=== PATIENT | female | born 1945 | race Caucasian/White ===

== ENCOUNTER → 2016-06-06 | Outpatient (CLI) | payer MEDICARE, OTHER | END | disposition home or self-care (01) | LOC: GMAM 15:40 | PROVIDERS: ATTEND Family Medicine | DX: K85.00 Idiopathic acute pancreatitis without necrosis or infection (principal) ==

== ENCOUNTER → 2016-09-30 | Outpatient (CLI) | payer MEDICARE, OTHER | END | disposition home or self-care (01) | LOC: GMAM 10:28 | PROVIDERS: ATTEND Family Medicine | DX: E53.8 Deficiency of other specified B group vitamins (principal); E55.9 Vitamin D deficiency, unspecified ==

== ENCOUNTER → 2016-12-31 | Outpatient (CLI) | payer MEDICARE, OTHER | END | disposition home or self-care (01) | LOC: GMA 15:36 | PROVIDERS: ATTEND Nurse Practitioner Family | DX: N30.00 Acute cystitis without hematuria (principal) ==

== ENCOUNTER → 2017-04-05 | Outpatient (CLI) | payer MEDICARE, OTHER | END | disposition home or self-care (01) | LOC: GMAM 14:21 | PROVIDERS: ATTEND Family Medicine | DX: D51.3 Other dietary vitamin B12 deficiency anemia (principal); E55.9 Vitamin D deficiency, unspecified ==

== ENCOUNTER → 2017-10-09 | Outpatient (CLI) | payer MEDICARE, OTHER | LOC: YCHH 15:15 | PROVIDERS: ATTEND Family Medicine | DX: N39.0 Urinary tract infection, site not specified (principal) ==

== ENCOUNTER → 2017-10-11 | Outpatient (CLI) | payer MEDICARE, OTHER | LOC: GMAJS 10:32 | PROVIDERS: ATTEND Physician Assistant | DX: R10.84 Generalized abdominal pain (principal) ==

== ENCOUNTER → 2018-04-04 | Outpatient (CLI) | payer MEDICARE, OTHER | LOC: YCHH 11:44 | PROVIDERS: ATTEND Family Medicine | DX: N39.0 Urinary tract infection, site not specified (principal) ==

== ENCOUNTER → 2018-07-06 | Outpatient (CLI) | payer MEDICARE, OTHER ==
--- NOTE | 2018-07-06 11:28 | RAD ---
EXAM DESCRIPTION: Foot,Left 3 Views CLINICAL HISTORY: 73 years Female, S92.315D COMPARISON: None. FINDINGS: Three views of the left foot were obtained. Bony detail is obscured by artifact from superimposed splint material. There are slightly displaced fractures involving the first through fourth metatarsals proximally. No definite intra-articular extension. Slight widening of the interspace between the second and third metatarsals and with additional widening of the interval between the lateral and middle cuneiforms is best seen on the oblique view. Slightly displaced fracture involving the third metatarsal neck with probable additional nondisplaced fracture fourth metatarsal neck. The phalanges are intact. The calcaneocuboid and talonavicular joints are anatomically aligned. No calcaneal fracture is seen on the lateral view. IMPRESSION: Multiple metatarsal fractures as detailed above with widening of the interval between the lateral and middle cuneiforms and bases of the second and third metatarsals. Lisfranc injury is not excluded, MRI is recommended for further evaluation. Electronically signed by: Toribio Curiel MD 07/06/2018 11:25 AM [facility]
== END ==
LOC: RAD 09:24
PROVIDERS: ATTEND Orthopaedic Surgery
DX: S92.315D Nondisplaced fracture of first metatarsal bone, left foot, subsequent encounter for fracture with routine healing (principal); S92.325D Nondisplaced fracture of second metatarsal bone, left foot, subsequent encounter for fracture with routine healing; S92.335D Nondisplaced fracture of third metatarsal bone, left foot, subsequent encounter for fracture with routine healing; S92.345D Nondisplaced fracture of fourth metatarsal bone, left foot, subsequent encounter for fracture with routine healing

== ENCOUNTER → 2018-07-27 | Outpatient (CLI) | payer MEDICARE, OTHER ==
--- NOTE | 2018-07-29 17:32 | RAD ---
EXAM DESCRIPTION: Foot,Left 3 Views: CR/DR/XR CLINICAL HISTORY: 73 years Female S92.315D, S92.325D, S92.335D, S92.345D COMPARISON: 3 views of the left foot with immobilization material 2018 TECHNIQUE: 3 VIEWS left foot AP. Lateral. Oblique. FINDINGS: Again noted are healing fractures of the proximal great metatarsal. The proximal second metatarsal, proximal third metatarsal and distal third metatarsal proximal to the head, and proximal fourth metatarsal. Angulation of some of the fractures. Callus formation is noted. Overall bone density is decreased. No new fractures. IMPRESSION: Fractures in the first through fourth metatarsals as noted. Proximal and distal fracture third metatarsal not involving the metatarsophalangeal joint. Varying degrees of angulation of the fractures and early callus formation. Electronically signed by: Alek Damico MD 07/29/2018 5:29 PM CDT
== END ==
LOC: RAD 09:39
PROVIDERS: ATTEND Orthopaedic Surgery
DX: S92.315D Nondisplaced fracture of first metatarsal bone, left foot, subsequent encounter for fracture with routine healing (principal); S92.325D Nondisplaced fracture of second metatarsal bone, left foot, subsequent encounter for fracture with routine healing; S92.335D Nondisplaced fracture of third metatarsal bone, left foot, subsequent encounter for fracture with routine healing; S92.345D Nondisplaced fracture of fourth metatarsal bone, left foot, subsequent encounter for fracture with routine healing

== ENCOUNTER 2018-08-27 14:58 | Inpatient (IN) | payer MEDICARE, OTHER ==
--- NOTE | 2018-08-27 15:38 | RAD ---
EXAM DESCRIPTION: Chest,1 View CLINICAL HISTORY: fever, ams COMPARISON: March 22, 2016 FINDINGS: The cardiomediastinal silhouette is unremarkable. There is no airspace consolidation or pleural effusion. The bronchovascular markings are within normal limits, and the lungs are not hyperinflated. There is no pneumothorax or acute fracture. Linear and curvilinear structures projecting over the right lung base are probably artifactual. IMPRESSION: No acute findings. Electronically signed by: Toribio Curiel MD 08/27/2018 3:36 PM CDT
[2018-08-27] MEDS ORDERED: SOD CHL 3% *HYPERTONIC* 500ML 160 ML IVS ONE (16:08)
[2018-08-27] MEDS ORDERED: MAGNESIUM SULFATE PREMIX 4GM 4 GM in PREMIX BAG 1 BAG IVPB ONE (16:09)
[2018-08-27] MEDS ORDERED: PIPERACILLIN/TAZOBACTAM 3.375 GM in SODIUM CHLORIDE 0.9% 100ML 100 ML IVPB ONE (16:09)
[2018-08-27] MEDS ORDERED: predniSONE 20 MG TAB PO ONE (16:11)
--- NOTE | 2018-08-27 16:41 | CT ---
Study: CT abdomen and pelvis. Indication: fever, ams, abd pain Technique: CT of the abdomen and pelvis obtained without intravenous contrast. This exam was performed according to our departmental dose-optimization program, which includes automated exposure control, adjustment of the mA and/or kV according to patient size and/or use of iterative reconstruction technique. Comparison: March 15, 2016. Findings: Lung bases hyperexpanded. Inferior heart unremarkable. Innumerable large cysts throughout the liver redemonstrated. Exclusion of solid mass limited in the absence of intravenous contrast. Hepatomegaly noted. Conglomerate cystic-like focus and peripheral calcification noted at the junction of the pancreatic tail and expected location of a nonvisualized left kidney. This appears similar to the prior and measures up to 3.8 cm. There is mild cystic change of the left psoas muscle as well. Right [place] kidneys not definitively visualized. There is persistent coarsened calcification posterior to the inferior right hepatic lobe. A new cystic cystic focus noted along the inferior pancreatic body and measures up to 2.2 cm and is located adjacent to the superior mesenteric vein. 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 Adrenal glands unremarkable. Right lower quadrant renal transplant. Bladder unremarkable. Uterus and ovaries likely surgically absent. Mild constipation. Colonic diverticulosis without diverticulitis. Stomach, small bowel, and appendix unremarkable. Trace free fluid suspected in the left upper quadrant. No free air. No pathologically enlarged lymphadenopathy. Atherosclerosis aorta. Degenerative changes of the spine noted. Impression: Mild constipation. Polycystic disease the liver with hepatomegaly. Right lower quadrant renal transplant without hydronephrosis or nephrolithiasis. Severe atrophy versus prior resection of the kidneys with a persistent multiloculated cystic focus at the interface between the pancreatic tail and the superior left psoas muscle. This could relate to the left kidney or could reflect a pancreatic lesion. Dedicated MRI of the abdomen is recommended to evaluate this lesion as well as a new cystic lesion along the inferior margin of the pancreatic body. Additional findings as above. Electronically signed by: Mario Mondragon MD 08/27/2018 4:39 PM CDT
[2018-08-27] MEDS ORDERED: PIPERACILLIN/TAZOBACTAM 3.375 GM VIAL IVPB ONE (16:44)
[2018-08-27] MEDS ORDERED: SODIUM CHLORIDE 0.9% 100ML 100 ML IVPB ONE (16:45)
[2018-08-27] MEDS ORDERED: MAGNESIUM SULFATE PREMIX 4GM 50 ML IVPB ONE (17:02)
[2018-08-27] MEDS ORDERED: AZITHROMYCIN IV 500 MG in SODIUM CHLORIDE 0.9% 250ML 250 ML IVPB ONE (17:46)
--- NOTE | 2018-08-27 18:00 | ED.PDOC ---
History of Present Illness - General Chief Complaint: Neuro Symptoms/Deficits Stated Complaint: weakness, confusion, fever Time Seen by Provider: 08/27/18 15:11 Source: patient, family Exam Limitations: no limitations - History of Present Illness Initial Comments: the patient is 73-year-old female presenting to emergency room secondary to fever, cough and a sore throat that started 3 days ago. brought her to the clinic earlier today due to some mild confusion when she had the fever. She is not confused at this point. No nuchal rigidity, no meningeal signs and no headache. She is pleasant and cooperative. The patient is a kidney transplant patient and is on multiple immunosuppressants. She is also on steroids. She has long-standing chronic pancreatitis with multiple abdominal cysts. Kidneys were removed due to polycystic kidney disease. 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 She has multiple cysts on her pancreas and she apparently according to the CT has a cyst on her psoas muscle. she has mild generalized abdominal pain that is apparently chronic. She did have a runny nose at the start of the process as well. Timing/Duration: other - 3 days Severity: moderate Improving Factors: nothing Worsening Factors: nothing Associated Symptoms: cough, fever/chills, loss of appetite, malaise, shortness of breath - mild Allergies/Adverse Reactions: Allergies Metoclopramide [From Reglan] Allergy (Unknown, Verified 03/17/16 18:39) makes her tongue swell Home Medications: Ambulatory Orders Aripiprazole [Abilify] 2 mg PO DAILY 07/09/12 Diphenoxylate W/ Atropine [Lomotil] 2.5 mg PO PRN PRN 07/09/12 Mycophenolate Mofetil [Cellcept] 250 mg PO BIDFD 07/09/12 Tacrolimus [Prograf] 1.5 mg PO 0800,1800 07/09/12 Losartan Potassium [Cozaar] 50 mg PO DAILY@1800 09/09/14 Prednisone 7 mg PO DAILY 09/09/14 Sulfamet/Trimeth Tab 400/80 [Bactrim] 1 ea PO KATHI-OTH-DAY 09/09/14 Atorvastatin Calcium [Lipitor] 20 mg PO BEDTIME 08/19/15 Doxazosin Mesylate [Cardura] 2 mg PO BEDTIME 08/19/15 Calcium 1,000 mg PO BID 03/12/16 Cyanocobalamin Inj [Vitamin B-12 Inj] 1,000 mcg IM MONTHLY 03/12/16 Dextromethorphan HBr-Quinidine [Nuedexta 20-10 mg] 1 cap PO BID 03/12/16 Furosemide [Lasix] 20 mg PO DAILY PRN 03/12/16 Insulin Aspart [Novolog Flexpen] 0 unit SC QID PRN 03/12/16 Aspirin [Qc Chewable Aspirin Low D] 81 mg PO DAILY 03/15/16 Multiple Minerals W/ Vitamins [Citracal Plus] 1 tab PO DAILY 03/15/16 Polyethylene Glycol 3350 [Miralax] 17 gm PO DAILY 03/15/16 Benzonatate Perles [Tessalon Perles] 100 mg PO TID PRN 03/16/16 Fexofenadine HCl 60 mg PO DAILY 03/16/16 Hydrocortisone 25 mg Supp [Anusol-HC Suppository] 25 mg [place] PRN PRN 03/16/16 Lamotrigine [Lamictal Odt] 100 mg PO BEDTIME #30 tab 03/25/16 Metoprolol Tartrate [Lopressor] 50 mg PO BID #60 03/25/16 hydrALAZINE HCl [HydrALAzine HCl] 75 mg PO TID #60 tab 03/25/16 Review of Systems - Review of Systems Constitutional: States: chills, fever, malaise, weakness - generalized EENTM: States: nose congestion, throat pain Respiratory: States: cough, short of breath - ild Cardiology: States: no symptoms reported Gastrointestinal/Abdominal: States: abdominal pain - chronic, nausea - hronic Genitourinary: States: no symptoms reported Musculoskeletal: States: other - generalized achiness Skin: States: no symptoms reported Neurological: States: other - apparently exhibited some confusion to the earlier in the day. Endocrine: States: no symptoms reported Hematologic/Lymphatic: States: no symptoms reported All other Systems: No Change from Baseline Past Medical History (General) - Patient Medical History Hx Seizures: No Hx Stroke: Yes - TIA Hx Asthma: No Hx of COPD: No Hx Cardiac Disorders: Yes - hypercholesterolemia Hx Congestive Heart Failure: No Hx Pacemaker: No Hx Hypertension: Yes Hx Diabetes: Yes Hx Gastroesophageal Reflux: Yes Hx Renal Disease: Yes Hx Cancer: Yes - bladder Hx MRSA: No Surgical History: other - Vaccination History Hx Influenza Vaccination: Yes - 2016 Hx Pneumococcal Vaccination: Yes - 2015 - Social History Hx Tobacco Use: No Hx Alcohol Use: No Hx Substance Use: No Hx Physical Abuse: No Hx Emotional Abuse: No Family Medical History - Family History Father Family History: Unknown Living Status: Hx Family;Other: polycystic kidney disease Physical Exam - Physical Exam General Appearance: Alert, Other - the patient is mildly diaphoretic. She is alert and oriented but obviously does not feel good Eye Exam: bilateral normal Ears, Nose, Throat: hearing grossly normal, nasal congestion, pharyngeal erythema Neck: full range of motion, supple Respiratory: no respiratory distress, no accessory muscle use, rhonchi Cardiovascular/Chest: normal peripheral pulses, regular rate, rhythm, no edema Peripheral Pulses: radial,right: 2+, radial,left: 2+, dorsalis pedis,right: 2+, dorsalis pedis,left: 2+ Gastrointestinal/Abdominal: other - diffuse discomfort palpation but no true rebound or peritoneal signs. No obvious bruising. No large palpable hernia. No real point tenderness. 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, alert, normal mood/affect, oriented x 3, other - the patient does have chronic peripheral neuropathy and it causes her some pain Skin Exam: diaphoresis - mildly Comments: Vital Signs - 24 hr 08/27/18 15:22 Temperature 100.3 F H Pulse Rate [ 77 left brachial] Respiratory 20 Rate Blood Pressure 135/63 [left brachial] O2 Sat by Pulse 96 Oximetry Progress - Progress Progress: 08/27/18 18:07 the patient is a 73-year-old female with a chronically immunosuppressed state due to medications required for her kidney transplant presenting with a bronchitis along with associated fever and mild transient delirium. It appears that this likely started as a viral upper respiratory tract infection, however the patient has only worsened over the last few days. Given her immunosuppressed state it is reasonable to suspect a superimposed bacterial infection. The patient is being placed on Zosyn and azithromycin. A blood culture has been done here and one was also done at the clinic. She has tested negative for influenza. Altered mental status has resolved but it was likely the result of fever and metabolic encephalopathy given the hyponatremia. She will need to be watched for this in the future. No evidence of any obvious meningitis or infectious encephalitis at this time. the patient was given a stress dose of oral prednisone given her long-term steroid usage in case adrenal insufficiency was contributing as well. She is receiving low-flow 3% saline for the hyponatremia. She has had this issue before. It is certainly not giving her the fever but it is likely making the confusion issues worse. Additionally she does have significant hypomagnesemia and is being replaced on that currently. Antibiotic doses above are loading doses and given the renal function, re-dosing on both will likely need to be done at slightly lower dosages. admit for above reasons. Her transplant doctor, Dr. Blake, has been contacted and agrees with the plan of care. Tonight's dose of the CellCept and Prograf will be held only. anticipate a 3-5 day hospital stay given her current condition and comorbidities. - Results/Orders Results/Orders: Chest x-ray shows no definitive acute pathology. CT scan of abdomen and pelvis shows no definitive acute pathology. She does have multiple chronic cystic lesions including a cyst on the psoas muscle. rapid strep from the clinic is negative. influenza test is negative here. 08/27/18 15:21 UA [URINALYSIS] Stat 08/27/18 15:30 BLOOD CULTURE Stat Laboratory Results - last 24 hr 08/27/18 08/27/18 08/27/18 15:30 15:30 15:30 WBC 18.9 H RBC 3.08 L Hgb 9.3 L Hct 28.9 L MCV 94.0 MCH 30.1 MCHC 32.1 L RDW 12.5 Plt Count 220 MPV 10.1 Absolute Neuts (auto) 11.60 H Absolute Lymphs (auto) 5.80 H Absolute Monos (auto) 1.40 H Absolute Eos (auto) 0.00 Absolute Basos (auto) 0.10 Neutrophils % 61.3 Lymphocytes % 30.7 Monocytes % 7.5 Eosinophils % 0.0 L Basophils % 0.5 Sodium 126 L Potassium 4.6 Chloride 92 L Carbon Dioxide 22 Anion Gap 16.6 BUN 39 H Creatinine 1.59 H BUN/Creatinine Ratio 24.5 H Random Glucose 101 Serum Osmolality 262.9 L Lactic Acid 1.3 Calcium 8.4 Magnesium 1.4 L Total Bilirubin 0.6 AST 34 ALT 25 Alkaline Phosphatase 122 H Creatine Kinase 122 CK-MB (CK-2) 0.8 CK-MB (CK-2) % 0.66 Troponin I 0.02 Serum Total Protein 6.4 Albumin 3.5 Globulin 2.9 Albumin/Globulin Ratio 1.2 Amylase 264 H* Lipase 108 H Departure - Departure Clinical Impression: Metabolic encephalopathy, Hyponatremia, Immunosuppressed status, Hypomagnesemia Acute bronchitis Qualifiers: Bronchitis organism: unspecified organism Qualified Code(s): J20.9 - Acute bronchitis, unspecified Disposition: Admit Patient Departure Forms: ED Discharge - Pt. Copy, Patient Portal Self Enrollment Referrals: Chapo Cabrera MD [Primary Care Provider] - 1-2 Weeks Home Medications: Ambulatory Orders Aripiprazole [Abilify] 2 mg PO DAILY 07/09/12 Diphenoxylate W/ Atropine [Lomotil] 2.5 mg PO PRN PRN 07/09/12 Mycophenolate Mofetil [Cellcept] 250 mg PO BIDFD 07/09/12 Tacrolimus [Prograf] 1.5 mg PO 0800,1800 07/09/12 Losartan Potassium [Cozaar] 50 mg PO DAILY@1800 09/09/14 Prednisone 7 mg PO DAILY 09/09/14 Sulfamet/Trimeth Tab 400/80 [Bactrim] 1 ea PO KATHI-OTH-09/09/14 Atorvastatin Calcium [Lipitor] 20 mg PO BEDTIME 08/19/15 Doxazosin Mesylate [Cardura] 2 mg PO BEDTIME 08/19/15 Calcium 1,000 mg PO BID 03/12/16 Cyanocobalamin Inj [Vitamin B-12 Inj] 1,000 mcg IM MONTHLY 03/12/16 Dextromethorphan HBr-Quinidine [Nuedexta 20-10 mg] 1 cap PO BID 03/12/16 Furosemide [Lasix] 20 mg PO DAILY PRN 03/12/16 Insulin Aspart [Novolog Flexpen] 0 unit SC QID PRN 03/12/16 Aspirin [Qc Chewable Aspirin Low D] 81 mg PO DAILY 03/15/16 Multiple Minerals W/ Vitamins [Citracal Plus] 1 tab PO DAILY 03/15/16 Polyethylene Glycol 3350 [Miralax] 17 gm PO DAILY 03/15/16 Benzonatate Perles [Tessalon Perles] 100 mg PO TID PRN 03/16/16 Fexofenadine HCl 60 mg PO DAILY 03/16/16 Hydrocortisone 25 mg Supp [Anusol-HC Suppository] 25 mg [place] PRN PRN 03/16/16 Lamotrigine [Lamictal Odt] 100 mg PO BEDTIME #30 tab 03/25/16 Metoprolol Tartrate [Lopressor] 50 mg PO BID #60 03/25/16 hydrALAZINE HCl [HydrALAzine HCl] 75 mg PO TID #60 tab 03/25/16 Decision To Admit - Decistion To Admit Decision to Admit Reason: Medical Nature Decision to Admit Date: 08/27/18 Decision to Admit Time: 18:15
[2018-08-27] MEDS ORDERED: SODIUM CHLORIDE 0.9% 250ML 250 ML ONE (18:28)
[2018-08-27] MEDS ORDERED: AZITHROMYCIN IV 500 MG VIAL IVPB ONE (18:28)
--- NOTE | 2018-08-27 19:09 | HP ---
SUPERVISING PHYSICIAN: Chapo Cabrera MD CHIEF COMPLAINT: Weakness and confusion with a fever. HISTORY OF PRESENT ILLNESS: Ms. Pierre is a 73-year-old, female patient that was brought to the Emergency Room due to fever, cough and a sore throat that had started three days previous to her arrival. Earlier in the day, she was brought to the clinic by her , but due to some mild confusion and a fever, she was referred to the Emergency Room. On exam, initially the patient was not confused, she had no nuchal rigidity, meningeal signs or headache according to the initial Emergency Room physician examination. She does have a history of kidney transplant and is on multiple immunosuppressants as well as steroids. She also has a longstanding history of chronic pancreatitis with multiple abdominal cysts and a nephrectomy due to polycystic kidney disease. She also has had multiple liver cysts and a splenectomy. Her initial workup in the Emergency Room showed white count of 18,900, hemoglobin 9.3, hematocrit 28.9, platelet count 220,000. Differential was without a left shift. Chemistries showed sodium 126, BUN 39, creatinine 1.59. Magnesium was low at 1.4, lactic acid 1.3. Liver functions were all within normal limits. Amylase and lipase were both elevated with amylase 265 and lipase 108. Review of previous records show that on 10/11/17, amylase as elevated at 476 and lipase 260. She does take Creon for chronic pancreatitis. On initial presentation to the Emergency Room, the patient was without any abdominal pain, just a sore throat and a cough. She then had a CT of the abdomen and pelvis without contrast and per radiologic interpretation, there as note of polycystic disease within the liver, mild constipation with right lower quadrant renal transplant without hydronephrosis or nephrolithiasis. There was note of severe atrophy versus prior resection of kidneys with persistent multiloculated cystic focus at the interface between the pancreatic tail and the superior left psoas muscle. This could relate to the left kidney or could reflect a pancreatic lesion. She did have this followed up as an outpatient with a hair specialist. Those records are unavailable at time of admission. Her vital signs showed that she was febrile with a temperature of 100.3. Pulse 77, blood pressure 135/63, saturation 96% on room air. Given her immunocompromised state from immunosuppressant medications due to the renal transplant and given that she had a fever with some mild confusion and no true source of infection was found, she is going to be admitted for further evaluation and treatment. She was covered with broad-spectrum coverage with azithromycin and Zosyn initially in the Emergency Room. She is now going to be admitted to the Medical/Surgical Floor for further evaluation and treatment. PAST MEDICAL HISTORY: 1. Hyperlipidemia. 2. Hypertension. 3. Chronic pancreatitis. 4. Polycystic kidney disease. 5. Irritable bowel syndrome. 6. Diverticulosis. 7. Gout. 8. Osteopenia. 9. Type 2 diabetes mellitus. 10. Previous pancreatitis cyst noted in 12/2016. 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 12. Multiple hospitalizations for pancreatitis, the last being 01/23/17. 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 PAST SURGICAL HISTORY: 1. Peripancreatic soft tissue biopsy in June of 2017 showing to be benign at [facility]. 2. Bilateral cataract removal. 3. Cholecystectomy, open, in 1992. 4. Hysterectomy at age 34 with bilateral salpingo-oophorectomy. 5. Bilateral nephrectomy on 12/12/11 with kidney transplant. 6. Renal transplant in 2004. HOME MEDICATIONS: Awaiting updated list of medications, at time of admission listed were: 1. Trazodone 150 mg. 2. Hydralazine 75 mg daily. 3. Ursodiol 250 mg t.i.d. 4. Prograf 1.5 mg twice daily. 5. Bactrim 1 every other day. 6. Prednisone 7 mg daily. 7. Creon 2 capsule with each meal and 1 capsule as needed. 8. Oxycodone 10 mg q.6h. 9. CellCept 250 mg b.i.d. 10. Multivitamins 1 tablet daily. 11. Lopressor 100 mg b.i.d. 12. Cozaar 50 mg daily. 13. Lamotrigine 100 mg at bedtime. 14. Lantus 18 units subcutaneously at bedtime. 15. NovoLog sliding scale. 16. Lasix 20 mg daily. 17. Cardura 2 mg at bedtime. 18. Lomotil 2.5 mg p.r.n. 19. Vitamin B12 injection monthly. 20. Clonazepam 0.5 mg at bedtime as needed. 21. Calcium 1000 mg daily. 22. Lipitor 20 mg daily. 23. Aspirin 81 mg daily. 24. Abilify 2 mg daily. ALLERGIES: METOCLOPRAMIDE. FAMILY HISTORY: Positive for polycystic kidney disease. One son after transplant. Father at age 52 due to polycystic renal disease. Mother at age 80 due to lymphoma. She has one sister who is healthy. SOCIAL HISTORY: The patient lives in [place]. She is retired. She is . She has one child. She has a history of cigarette smoking, but quit a long time ago when in college. She does not drink or use illicit drugs. REVIEW OF SYSTEMS: CONSTITUTIONAL: Positive for chills, fever, malaise, generalized weakness. HEENT: Positive for nasal congestion, sore throat. Negative for earaches, headaches. RESPIRATORY: Positive for mild shortness of breath with cough. CARDIOVASCULAR: Negative for chest pain, palpitations, tachycardia or syncopal episodes. GASTROINTESTINAL: Positive for chronic abdominal pain, nausea with history of chronic pancreatitis. GENITOURINARY: Negative for dysuria, hematuria, polyuria. MUSCULOSKELETAL: Positive for generalized body aches. SKIN: No reported lesions, rashes or changes. NEUROLOGIC: Some reported confusion by the earlier in the day, but appears to be at baseline at time of exam. No syncopal episodes. No ataxia. HEMATOLOGICAL: Negative for any unexplained bleeding, bruising. PHYSICAL EXAMINATION: VITAL SIGNS: Temperature 100.3. Pulse 77. Blood pressure 135/63. Respirations 20. Saturation 96% on room air. GENERAL: The patient is alert, oriented, does not appear to be in any acute distress. She is ill appearing and tired. HEENT: Tympanic membranes clear bilaterally. Oropharynx is pink, moist without any lesions. Both nares notably congested. There is some mild pharyngeal erythema. No drainage. NECK: Supple, nontender with full range of motion. No jugular venous distention noted. RESPIRATORY: Lung sounds slightly diminished bilaterally, but no rhonchi, wheezing or rales noted. CARDIOVASCULAR: Regular rate and rhythm without any appreciable murmurs, gallops, or rubs. ABDOMEN: Diffusely tender across the epigastric region, but no rebound or peritoneal signs. No point tenderness. RECTAL: Deferred. BACK: No CVA tenderness. No vertebral tenderness. EXTREMITIES: There is no cyanosis, clubbing or edema. She is moving all extremities ad ibrahima. NEUROLOGIC: The patient is alert and oriented times three. Cranial nerves II- XII are grossly intact. Facial features are symmetrical without notable nystagmus. Extraocular movements are within normal limits. SKIN: [place], warm and dry. LABORATORY: CBC showed white count 18,900, hemoglobin 9.3, hematocrit 28.9, platelet count 220,000. Differential with a left shift. Coagulation studies were not completed. Chemistries show sodium 126, potassium 4.6, BUN 39, creatinine 1.59, glucose 170, lactic acid 1.3, calcium 8.4, magnesium 1.4. Liver functions all within normal limits except for slightly elevated alkaline phosphatase at 122. Amylase 265, lipase 108. Urinalysis was within normal limits. MICROBIOLOGY: Blood cultures pending. Influenza A and B by PCR was negative. RADIOLOGY: Chest x-ray initially in the Emergency Room per radiologic interpretation showed no acute findings. Abdominopelvic CT without contrast per radiologic interpretation showed mild constipation with polycystic disease of the liver with hepatomegaly. There was note of right lower quadrant renal transplant without hydronephrosis or nephrolithiasis. There was note of severe atrophy versus prior resection of the kidneys with persistent multiloculated cystic focus at the interface between the pancreatic tail and the superior left psoas muscle. This could relate to the left kidney or could reflect a pancreatic lesion. There is note of a new cystic lesion along the inferior margin of the pancreas body. Please see that report for full details. ASSESSMENT: 1. Metabolic encephalopathy secondary to hyponatremia. 2. Acute bronchitis in a patient with immunosuppressed state secondary to renal transplant and immunosuppressant drugs. 3. Electrolyte imbalance with hypomagnesemia. 4. Acute on chronic pancreatitis in a patient with a history of polycystic kidney disease. 5. Type 2 diabetes mellitus. 6. Renal insufficiency in a patient with renal transplant, likely due to prerenal azotemia. 7. Moderate dehydration likely contributing to renal insufficiency from prerenal azotemia. 8. History of hypercholesterolemia. 9. Gastroesophageal reflux disease. PLAN: The patient is going to be admitted to the Medical/Surgical Floor for further treatment and evaluation with acute bronchitis and fever of unknown origin with acute on chronic pancreatitis. Dr. Cabrera, the Emergency Room physician, did touch base with Dr. Blake, , in regards to the patient's findings on kidney function and acute illness. He recommended the patient stay here and be treated for acute bronchitis, to hold immunosuppressant drugs and reassess in the morning. I am going to make her NPO, recheck labs in the morning including pancreatic enzymes. We will need to touch base with her inspector exhaust emissions as well as resin mixer. I believe her inspector exhaust emissions is Dr. Tubbs, but we will need to confirm this through Dr. Cabrera's office who is her primary care physician. Apparently she had a fine needle biopsy done in 2018 and several different studies, so with the finding on CT at this point I think is not a new finding, but again we will touch base with her inspector exhaust emissions and other specialists as needed to ensure there are no concerns for additional need for further treatment in regards to the pancreatic findings. Given that she is running a fever and immunosuppressed, she was given empiric coverage with Unasyn and azithromycin. Given that she has one kidney and is not critical at this point, we will back of Unasyn and stay with azithromycin and put her on some Rocephin and closely monitor her blood cultures. I anticipate her length of stay to be at least 2 to 3 days until she is at least afebrile for 48 hours, blood cultures remain negative. At this point, we have no source of infection other than possible acute bronchitis. Given that she does have a sore throat, we will do strep cultures and strep screen. We will have her on DVT prophylaxis per protocol. She is on sliding scale per her protocol q.6h. for NPO status until we can further evaluate in the morning with laboratory studies. We will go through her home medications and resume those as appropriate once we touch base with Dr. Cabrera and other specialists in regard to her treatment, especially regarding the CellCept. Until we can transition her to outpatient management, we will continue to monitor and treat as needed. [facility][id number] [facility]
[2018-08-27] MEDS ORDERED: DEXTROSE 50% 25 GM/50 ML SYG IV PRN (21:46)
[2018-08-27] MEDS ORDERED: SODIUM CHLORIDE 0.9% (FLUSH) 10 ML SYG IV PRN (21:46)
[2018-08-27] MEDS ORDERED: GLUCAGON INJ 1 MG VIAL SUBCU PRN (21:46)
[2018-08-27] MEDS: SODIUM CHLORIDE 0.9% 1000ML 1,000 ML IVS PRN (22:00)
[2018-08-27] MEDS: IV SET AND CAP CHANGE INJ INJ SCH (22:26)
[2018-08-27] MEDS ORDERED: BISACODYL SUPPOSITORY 10 MG PR ONE (23:15)
[2018-08-27] MEDS ORDERED: MAGNESIUM HYDROXIDE 30 ML UD PO ONE (23:15)
[2018-08-27] MEDS ORDERED: POLYETHYLENE GLYCOL 3350 17 GM PCKT PO ONE (23:16)
[2018-08-27] MEDS ORDERED: [UNRECOGNIZED DRUG - OTHER] PO PRN (23:17)
[2018-08-27] MEDS ORDERED: OXYCODONE HCL 10 MG PO SCH (23:30)
[2018-08-27] MEDS: lamoTRIgine 100 MG TAB PO SCH (23:39)
[2018-08-27] MEDS: DOXAZOSIN MESYLATE 2 MG TAB PO SCH (23:40)
[2018-08-27] MEDS ORDERED: PERCOCET PO SCH (23:45)
[2018-08-28] MEDS: INSULIN LISPRO 100 UNITS/ML PEN SUBCU SCH ×5 (00:10→21:28)
[2018-08-28] MEDS ORDERED: PANCRELIPASE PO PRN (04:38)
[2018-08-28] MEDS ORDERED: PERCOCET PO SCH (05:27)
[2018-08-28] MEDS: SODIUM CHLORIDE 0.9% 1000ML 1,000 ML IVS PRN ×3 (05:43→22:00)
[2018-08-28] MEDS ORDERED: [UNRECOGNIZED DRUG - OTHER] PO SCH ×2 (07:00→07:30)
[2018-08-28] MEDS: [UNRECOGNIZED DRUG - OTHER] PO SCH ×3 (08:35→17:07)
[2018-08-28] MEDS ORDERED: cefTRIAXone SODIUM 1 GM VIAL ONE (08:36)
[2018-08-28] MEDS ORDERED: SODIUM CHLORIDE 0.9% 50ML 50 ML ONE (08:37)
[2018-08-28] MEDS: cefTRIAXone SODIUM 1 GM in SODIUM CHL 0.9% 50ML MIN-BAG+ 50 ML IVPB SCH (08:42)
[2018-08-28] MEDS ORDERED: predniSONE 5 MG TAB PO SCH (09:00)
[2018-08-28] MEDS ORDERED: CALCIUM CARBONATE (ANTACID) 500 MG CHEWABLE TAB PO ONE (09:00)
--- NOTE | 2018-08-28 09:13 | RAD ---
EXAM DESCRIPTION: Chest,2 Views CLINICAL HISTORY: FUO COMPARISON: Previous study August 27, 2018 TECHNIQUE: PA/lateral FINDINGS: The lateral view is unimpressive for active process in the chest. However, on the frontal view, patchy densities are seen in the medial right lung base and in the lingula which appear new or more prominent compared to previous study and could indicate mild pneumonia. Upper lung zones are clear. No pneumothorax or pleural effusion. IMPRESSION: Patchy infiltrates in the medial right lung base and lingula. Electronically signed by: Mika Novoa MD 08/28/2018 9:11 AM CDT
[2018-08-28] MEDS ORDERED: predniSONE 1 MG TAB PO SCH (09:20)
[2018-08-28] MEDS: ASPIRIN (CHEWABLE) 81 MG TAB PO SCH (09:34)
[2018-08-28] MEDS: ENOXAPARIN SODIUM 40 MG/0.4 ML SYG SUBCU SCH (09:34)
[2018-08-28] MEDS: METOPROLOL TARTRATE 50 MG TAB PO SCH ×2 (09:36→20:48)
[2018-08-28] MEDS ORDERED: AZITHROMYCIN IV 500 MG in SODIUM CHLORIDE 0.9% 250ML 250 ML IVPB SCH (10:00)
[2018-08-28] MEDS: CALCIUM CARBONATE (ANTACID) 500 MG CHEWABLE TAB PO SCH ×3 (10:05→21:05)
[2018-08-28] MEDS ORDERED: SODIUM CHLORIDE 0.9% 250ML 250 ML ONE (10:08)
[2018-08-28] MEDS ORDERED: AZITHROMYCIN IV 500 MG VIAL IVPB ONE (10:09)
[2018-08-28] MEDS: LOSARTAN POTASSIUM 25 MG TAB PO SCH (18:01)
[2018-08-28] MEDS: ATORVASTATIN 20 MG TAB PO SCH (18:01)
[2018-08-28] MEDS: traZODone HCL 50 MG TAB PO SCH (20:46)
[2018-08-28] MEDS: lamoTRIgine 100 MG TAB PO SCH (20:47)
[2018-08-28] MEDS: DOXAZOSIN MESYLATE 2 MG TAB PO SCH (20:47)
[2018-08-28] MEDS ORDERED: INSULIN DETEMIR 100 UNITS/ML PEN SUBCU SCH (21:00)
[2018-08-29] MEDS: SODIUM CHLORIDE 0.9% 1000ML 1,000 ML IVS PRN ×2 (06:29→23:43)
--- NOTE | 2018-08-29 07:30 | RAD ---
CHEST 08/29/2018 CLINICAL HISTORY: Pneumonia. COMPARISON: Chest 08/01/2018 TECHNIQUE: [AP] Chest. FINDINGS: Heart is normal in size. No edema. Slight bronchial thickening noted bilaterally. No consolidation. Pleural spaces are clear. Minimal biapical pleural thickening. Unremarkable soft tissues and bones. IMPRESSION: 1. Bronchitis. No confluent pneumonia. Electronically signed by: Gris Keys DO 08/29/2018 7:27 AM CDT
[2018-08-29] MEDS: INSULIN LISPRO 100 UNITS/ML PEN SUBCU SCH ×4 (07:41→21:05)
[2018-08-29] MEDS: MYCOPHENOLATE MOFETIL 250 MG PO SCH ×2 (07:41→17:18)
[2018-08-29] MEDS: [UNRECOGNIZED DRUG - OTHER] PO SCH ×3 (07:42→17:18)
[2018-08-29] MEDS: TACROLIMUS 1.5 MG PO SCH ×2 (07:46→18:23)
[2018-08-29] MEDS: INSULIN DETEMIR 100 UNITS/ML PEN SUBCU SCH (07:48)
[2018-08-29] MEDS ORDERED: SODIUM CHL 0.9% 50ML MIN-BAG+ 50 ML IVPB ONE (08:16)
[2018-08-29] MEDS ORDERED: cefTRIAXone SODIUM 1 GM VIAL ONE (08:17)
[2018-08-29] MEDS: cefTRIAXone SODIUM 1 GM in SODIUM CHL 0.9% 50ML MIN-BAG+ 50 ML IVPB SCH (08:25)
[2018-08-29] MEDS: ASPIRIN (CHEWABLE) 81 MG TAB PO SCH (09:02)
[2018-08-29] MEDS: METOPROLOL TARTRATE 50 MG TAB PO SCH ×2 (09:04→21:04)
[2018-08-29] MEDS: levoFLOXacin 750MG IV 750 MG in PREMIX BAG 1 BAG IVPB SCH (09:04)
[2018-08-29] MEDS: predniSONE 5 MG TAB PO SCH (09:05)
[2018-08-29] MEDS: CALCIUM CARBONATE (ANTACID) 500 MG CHEWABLE TAB PO SCH ×2 (09:05→21:04)
[2018-08-29] MEDS: ENOXAPARIN SODIUM 40 MG/0.4 ML SYG SUBCU SCH (09:05)
--- NOTE | 2018-08-29 09:33 | PN ---
SUPERVISING PHYSICIAN: Chapo Cabrera MD DATE: 08/28/18 SUBJECTIVE: The patient seems to be doing a little bit better this morning. She is much more alert. She actually was able to get some sleep. Looking at the labs, he resolved is improved. She remains afebrile. Blood cultures remain negative. She has had no further complaints. She did discuss starting her on a diet today as well as continuation of her anti-rejection medications. OBJECTIVE: VITAL SIGNS: Temperature 98.6. Pulse 94. Blood pressure 125/78. Respiratory rate 16. Saturation 94% on room air. Weight 62.0 kg. GENERAL: The patient is resting comfortably. She is alert. CHEST: Lungs clear to auscultation bilaterally. HEART: Regular rate and rhythm. ABDOMEN: Soft, nontender. Positive bowel sounds. EXTREMITIES: No cyanosis, clubbing or edema. NEUROLOGIC: Alert and oriented times three. LABORATORY: White count down to 16,900. Hemoglobin stable at 9.2 and hematocrit 28.3. Platelet count 217,000. Differential does show a left shift. Chemistries show slight improvement in sodium up to 133, potassium 4.6, BUN 36, creatinine normalized now to 1.22. Blood sugars range between 101 and 202. Calcium 8.1. Liver functions within normal limits. MICROBIOLOGY: Blood cultures remain negative at 24 hours. RADIOLOGY: Repeat chest x-ray showed patchy infiltrate to the right middle lung base and lingula, which could be concerning for pneumonia. ASSESSMENT: 1. Acute bronchitis with concerning findings on radiographic studies indicating possible bilateral pneumonia in an immunosuppressed patient secondary to renals transplant and immunosuppressant drugs. 2. Metabolic encephalopathy secondary to both #1 and hyponatremia. 3. Electrolyte imbalance with hypomagnesemia and hyponatremia, showing improvement with treatment with IV replacement. 4. Acute on chronic pancreatitis in a patient with a history of polycystic kidney disease, showing improving pancreatic enzymes. 5. Type 2 diabetes mellitus, stable. 6. Renal insufficiency in a patient with renal transplant, likely due to prerenal azotemia with creatinine now returning to baseline levels. 7. History of hypercholesterolemia. 8. Gastroesophageal reflux disease. PLAN: We will continue with antibiotic coverage that she has had a fever and it looks like maybe she might be developing bilateral pneumonia. She certainly has an immunocompromised system at this point, but I will resume her medications starting later today. I did talk with Dr. Cabrera and she has had a workup extensively in regards to the cysts around the pancreas and does have ongoing chronic pancreatitis. This seems to be not so much a problem as the developing pneumonia at this point. I discussed with her that we would keep her in the hospital until she was afebrile at least 48 hours if she was showing good response to treatment and the blood cultures remained negative. We will plan to repeat labs in the morning as well as chest x-ray. We will anticipate another 24 to 48 hours hospitalization given the patients immunocompromised state and ongoing findings. I have restarted her CellCept. We will continue aggressive bronchial hygiene and encourage deep breathing exercises. Until she can transition to outpatient management, we will continue to monitor and treat as needed. [facility][id number] [facility]
[2018-08-29] MEDS: ONDANSETRON INJ 4 MG/2 ML VIAL IV PRN ×2 (11:05→16:02)
[2018-08-29] MEDS: LOSARTAN POTASSIUM 25 MG TAB PO SCH (18:24)
[2018-08-29] MEDS: ATORVASTATIN 20 MG TAB PO SCH (18:25)
--- NOTE | 2018-08-29 20:57 | PN ---
DATE: 08/29/18 SUPERVISING PHYSICIAN: Chapo Cabrera M.D. SUBJECTIVE: The patient states she feels about the same as she did yesterday. She is having a pretty aggressive cough at times. OBJECTIVE: Blood pressure 135/63, heart rate 74, respiratory rate 18, temperature 98.4, oxygen saturation 96%. GENERAL: Ms. Pierre is a 73 year-old female in no active distress currently. NEUROLOGIC: The patient is alert and oriented. LUNGS: With a minimal wheeze on expiration mainly on the right side, but this is very inconsistent. Seems to clear when she coughs. CARDIOVASCULAR: Regular rate and rhythm. Normal S1 and S2. ABDOMEN: Soft. Positive bowel sounds. EXTREMITIES: Lower extremities have no edema. 2+ pulses. Capillary refill less than 2 seconds. LABORATORY: White count 15.6 which is an improvement of yesterday 16.9, however today she does have 4% bands. Hemoglobin 8.5, hematocrit 26.5, platelet count 212. Chemistries show sodium 137, potassium 4.4, chloride 108, CO2 is 22, BUN 33, creatinine 1.16, glucose 77, calcium 8.1. Chest x-ray shows slight bronchial thickening consistent with bronchitis. There is no consolidation. ASSESSMENT: 1. Acute bronchitis. 2. Electrolyte imbalance. 3. Type 2 diabetes mellitus. 4. Renal insufficiency status post history of renal transplant on immunosuppressant therapy. PLAN: At this time I am going to change her antibiotics to Levaquin IV in preparation for her to be switched to p.o. closer to discharge. She has been afebrile over the last 24 hours. I would like for her to be afebrile for at least 48 hours in addition to the fact we are waiting on the blood culture results to ensure that these are negative. We have to be very cautious given she is on immunosuppressant therapy. #[id number] [facility]
[2018-08-29] MEDS: DOXAZOSIN MESYLATE 2 MG TAB PO SCH (21:03)
[2018-08-29] MEDS: traZODone HCL 50 MG TAB PO SCH (21:03)
[2018-08-29] MEDS: lamoTRIgine 100 MG TAB PO SCH (21:04)
[2018-08-29] MEDS: CHLORPHENIRAMINE W/HYDROCODONE 5 ML UD PO PRN (21:11)
[2018-08-30] MEDS: SODIUM CHLORIDE 0.9% 1000ML 1,000 ML IVS PRN (06:48)
[2018-08-30] MEDS: INSULIN LISPRO 100 UNITS/ML PEN SUBCU SCH ×4 (07:32→21:32)
[2018-08-30] MEDS: MYCOPHENOLATE MOFETIL 250 MG PO SCH ×2 (07:40→17:31)
[2018-08-30] MEDS: [UNRECOGNIZED DRUG - OTHER] PO SCH ×3 (07:41→17:30)
[2018-08-30] MEDS ORDERED: ONDANSETRON INJ 4 MG/2 ML VIAL IV PRN (08:27)
[2018-08-30] MEDS: TACROLIMUS 1.5 MG PO SCH ×2 (08:44→18:12)
[2018-08-30] MEDS: INSULIN DETEMIR 100 UNITS/ML PEN SUBCU SCH (08:44)
[2018-08-30] MEDS: levoFLOXacin 750MG IV 750 MG in PREMIX BAG 1 BAG IVPB SCH (08:45)
[2018-08-30] MEDS: ASPIRIN (CHEWABLE) 81 MG TAB PO SCH (08:45)
[2018-08-30] MEDS: predniSONE 5 MG TAB PO SCH (08:46)
[2018-08-30] MEDS: METOPROLOL TARTRATE 50 MG TAB PO SCH ×2 (08:46→21:32)
[2018-08-30] MEDS: ENOXAPARIN SODIUM 40 MG/0.4 ML SYG SUBCU SCH (08:46)
[2018-08-30] MEDS: CALCIUM CARBONATE (ANTACID) 500 MG CHEWABLE TAB PO SCH ×2 (08:46→21:33)
[2018-08-30] MEDS: CHLORPHENIRAMINE W/HYDROCODONE 5 ML UD PO PRN ×2 (09:11→21:34)
--- NOTE | 2018-08-30 13:02 | PN ---
SUPERVISING PHYSICIAN: Chapo Cabrera M.D. DATE: 08/30/18 SUBJECTIVE: The patient states she not feel any better or worse than she did yesterday. However, she states her cough is significantly better than it was. She does not complain of any shortness of breath. OBJECTIVE: VITAL SIGNS: Blood pressure 144/66. Heart rate 78. Respiratory rate 18. Temperature 98.5. Oxygen saturation 93% on room air. GENERAL: Ms. Pierre is a 73-year-old female in no active distress currently. NEUROLOGIC: The patient is alert and oriented. LUNGS: A little bit of coarseness mainly right lower lobe, but there is no active wheezing and no rales. CARDIOVASCULAR: Regular rate and rhythm. Normal S1 and S2. ABDOMEN: Soft. Positive bowel sounds. GENITOURINARY: Deferred. EXTREMITIES: Lower extremities with no significant edema. LABORATORY: White count 17.5, hemoglobin 8.4, hematocrit 26.3, platelet count 197. There are no bands today. Sodium 137, potassium 3.9, chloride 110, CO2 19, BUN 23, creatinine 1.01. Glucose 52, calcium 7.7. ASSESSMENT: 1. Acute bronchitis. 2. Electrolyte imbalance. 3. Type 2 diabetes mellitus. 4. Renal insufficiency with history of renal transplant on immunosuppressant therapy. 5. Anemia of chronic disease. PLAN: Her white count is up today, but she also does not have any bands, so the increase is expected given yesterday's bandemia. She does not have any significant fever. It looks like this morning it was 99.1. I am still awaiting blood culture results. Although she states she is not feeling any better, her cough is improved. We will continue with the Levaquin for now in anticipation of discharging on p.o. Levaquin. We will recheck her labs tomorrow as well to ensure they are not continuing to go up. Also, consider that some of the leukocytosis is secondary to her chronic steroid use. I could give her a larger IV dose of Solu-Medrol and that would probably help quite a bit with the bronchitis, but it would also increase her white blood cell count and I would be unable to know whether or not she was having an increase in the white count due to infection versus the dose of steroid. I will recheck a chest x-ray tomorrow also to ensure that there has not been an interval development of pneumonia. [facility][id number] [facility]
[2018-08-30] MEDS: LOSARTAN POTASSIUM 25 MG TAB PO SCH (18:11)
[2018-08-30] MEDS: ATORVASTATIN 20 MG TAB PO SCH (18:11)
[2018-08-30] MEDS: DOXAZOSIN MESYLATE 2 MG TAB PO SCH (21:31)
[2018-08-30] MEDS: lamoTRIgine 100 MG TAB PO SCH (21:32)
[2018-08-30] MEDS: traZODone HCL 50 MG TAB PO SCH (21:32)
[2018-08-31] MEDS: IV SET AND CAP CHANGE INJ INJ SCH (00:11)
--- NOTE | 2018-08-31 06:42 | RAD ---
EXAM DESCRIPTION: Chest,1 View CLINICAL HISTORY: 73 years Female bronchitis follow up, r/o pneumonia COMPARISON: Two-view chest dated 08/29/2018 TECHNIQUE: Portable AP view of the chest is obtained. FINDINGS IN THE CHEST: Heart: Allowing for magnification factors related to AP portable technique, the heart is normal in size and configuration. Vasculature: [] There is no evidence of aortic aneurysm or acute findings. The pulmonary vascularity is normal. Mediastinum: Unremarkable otherwise. No evidence of mass or adenopathy. Lungs: There is diffuse interstitial prominence. There has been the development of patchy alveolar opacification in the right lower lung medially with preservation of the right heart border suggesting atelectasis and/or pneumonia in the right lower lobe. Pleura: There are no pleural effusions. There are no pneumothoraces. Tubes and catheters: None Chest wall: Unremarkable. Osseous structures: No evidence of acute fracture or other significant osseous abnormalities. IMPRESSION: There has been the development of patchy alveolar opacification in the right lower lung medially with preservation of the right heart border suggesting atelectasis and/or pneumonia in the right lower lobe. Remainder of findings as described above. Electronically signed by: Rosario Zimmerman MD 08/31/2018 6:40 AM CDT
[2018-08-31] MEDS: INSULIN LISPRO 100 UNITS/ML PEN SUBCU SCH ×4 (07:04→21:17)
[2018-08-31] MEDS: MYCOPHENOLATE MOFETIL 250 MG PO SCH ×2 (07:57→17:19)
[2018-08-31] MEDS: TACROLIMUS 1.5 MG PO SCH ×2 (07:57→18:32)
[2018-08-31] MEDS: [UNRECOGNIZED DRUG - OTHER] PO SCH ×3 (08:00→17:18)
[2018-08-31] MEDS: INSULIN DETEMIR 100 UNITS/ML PEN SUBCU SCH (08:07)
[2018-08-31] MEDS: CALCIUM CARBONATE (ANTACID) 500 MG CHEWABLE TAB PO SCH ×2 (09:16→20:43)
[2018-08-31] MEDS: ASPIRIN (CHEWABLE) 81 MG TAB PO SCH (09:17)
[2018-08-31] MEDS: METOPROLOL TARTRATE 50 MG TAB PO SCH ×2 (09:17→20:42)
[2018-08-31] MEDS: predniSONE 5 MG TAB PO SCH (09:17)
[2018-08-31] MEDS: levoFLOXacin 750MG IV 750 MG in PREMIX BAG 1 BAG IVPB SCH (09:18)
[2018-08-31] MEDS: ENOXAPARIN SODIUM 40 MG/0.4 ML SYG SUBCU SCH (09:19)
--- NOTE | 2018-08-31 11:55 | PN ---
SUPERVISING PHYSICIAN: Nick Arzola MD DATE: 08/31/18 SUBJECTIVE: The patient is lying in bed. She has no complaints. She feels much better today than she has in the past few days. We discussed having a blood transfusion and we will wait until tomorrow to check her hemoglobin and and hematocrit prior to another transfusion. No complaints of shortness of breath, chest pain, nausea or vomiting. OBJECTIVE: VITAL SIGNS: Temperature 98.5. Heart rate 80. Blood pressure 165/72. Respiratory rate 18. O2 saturation 94% on room air. RESPIRATORY: Essentially clear to auscultation bilaterally. CARDIAC: Regular rate and rhythm. GASTROINTESTINAL: Abdomen is soft, nondistended, nontender. Bowel sounds are positive. NEUROLOGIC: Awake, alert and oriented times three. LABORATORY: WBCs have improved to 13,400 with hemoglobin 7.7, hematocrit 23.6. Chemistry is basically within normal limits with a slightly low calcium of 8.1. Sputum culture is pending. Preliminary blood cultures show no growth after 3 days. Chest x-ray shows development of patchy alveolar opacification of the right lower lung medially with preservation of the right heart border suggesting atelectasis and/or pneumonia in the right lower lobe. All other labs and films have been reviewed via the EMR. ASSESSMENT: 1. Acute bronchitis. 2. Electrolyte imbalance. 3. Anemia of chronic disease. Hemoglobin did fall to 7.7 today. 4. Type 2 diabetes mellitus. 5. Renal insufficiency with history of renal transplant on immunosuppressant therapy. PLAN: We will continue present supportive care. She will not receive blood today due to her chronic anemia and that may be slightly hemodiluted. I will recheck a chest x-ray and hemoglobin and hematocrit in the morning. If she continues to be stable clinically, she can be discharged tomorrow unless her hemoglobin and hematocrit does fall, then we will need to transfuse some packed red blood cells. She will need close followup with Dr. Cabrera in office after discharge. We will continue to monitor the patient closely and follow as needed. [facility][id number] [facility]
[2018-08-31] MEDS: LOSARTAN POTASSIUM 25 MG TAB PO SCH (18:29)
[2018-08-31] MEDS: ATORVASTATIN 20 MG TAB PO SCH (18:30)
[2018-08-31] MEDS: traZODone HCL 50 MG TAB PO SCH (20:42)
[2018-08-31] MEDS: DOXAZOSIN MESYLATE 2 MG TAB PO SCH (20:43)
[2018-08-31] MEDS: lamoTRIgine 100 MG TAB PO SCH (20:43)
[2018-08-31] MEDS: CHLORPHENIRAMINE W/HYDROCODONE 5 ML UD PO PRN (21:18)
--- NOTE | 2018-09-01 06:59 | RAD ---
EXAM DESCRIPTION: Chest,2 Views CLINICAL HISTORY:73 years Female, ?pna Comparison: August 31, 2018 FINDINGS: Minimal bibasilar opacities, improved in the right lung base compared to prior No pleural effusion. No pneumothorax. Cardiac and mediastinal silhouette is unremarkable. No acute osseous abnormality. Soft tissues are unremarkable. IMPRESSION: Minimal bibasilar opacities representing atelectasis or pneumonia. Right basilar opacities are improved compared to prior. Electronically signed by: Johan Sabillon MD 09/01/2018 6:56 AM CDT
[2018-09-01] MEDS: [UNRECOGNIZED DRUG - OTHER] PO SCH (07:52)
[2018-09-01] MEDS: MYCOPHENOLATE MOFETIL 250 MG PO SCH (07:53)
[2018-09-01] MEDS: INSULIN LISPRO 100 UNITS/ML PEN SUBCU SCH (07:53)
[2018-09-01] MEDS: TACROLIMUS 1.5 MG PO SCH (07:59)
[2018-09-01] MEDS: INSULIN DETEMIR 100 UNITS/ML PEN SUBCU SCH (08:00)
[2018-09-01] MEDS: CALCIUM CARBONATE (ANTACID) 500 MG CHEWABLE TAB PO SCH (09:22)
[2018-09-01] MEDS: ASPIRIN (CHEWABLE) 81 MG TAB PO SCH (09:23)
[2018-09-01] MEDS: predniSONE 5 MG TAB PO SCH (09:23)
[2018-09-01] MEDS: METOPROLOL TARTRATE 50 MG TAB PO SCH (09:23)
[2018-09-01] MEDS: levoFLOXacin 750MG IV 750 MG in PREMIX BAG 1 BAG IVPB SCH (09:23)
[2018-09-01] MEDS: ENOXAPARIN SODIUM 40 MG/0.4 ML SYG SUBCU SCH (09:24)
[2018-09-01 10:04] VITALS: O2SAT 96
[2018-09-01 10:26] VITALS: BP 152/67; TEMP 98.5
--- NOTE | 2018-09-01 21:25 | DS ---
SUPERVISING PHYSICIAN: Nick Arzola M.D. DISCHARGE DIAGNOSIS: 1. Acute bronchitis. 2. Electrolyte imbalance. 3. Anemia of chronic disease. Hemoglobin fell to 7.7 yesterday. Today it is 8.0. 4. Type 2 diabetes mellitus. 5. Renal insufficiency with history of renal transplant on immunosuppressant therapy. HISTORY OF PRESENT ILLNESS: This is a 73-year-old female patient who was brought to the Emergency Room due to fever, cough and a sore throat that started three days prior to her admission to the Emergency Room. She had earlier been to the clinic due to some mild confusion and fever. She was sent to the Emergency Room at that time. Initially in the E. R., she was not confused. There was no nuchal rigidity, meningeal signs or headache according to the initial Emergency Room physician examination. She has a history of kidney transplant and is on multiple immunosuppressants as well as steroids. She has a longstanding history of chronic pancreatitis with multiple abdominal cysts and a nephrectomy due to polycystic kidney disease. She has also had multiple liver cysts and a splenectomy. Her initial workup in the Emergency Room showed white count of 18,900, hemoglobin 9.3, hematocrit 28.9, platelet count 220,000. Differential was without a left shift. Chemistry had a sodium 126, BUN 39, creatinine 1.59. Magnesium was low at 1.4, lactic acid 1.3. Liver functions were all within normal limits. Amylase and lipase were both elevated with amylase 265 and lipase 108. Review of previous records show that on 10/11/17, amylase was elevated at 476 and lipase 260. She does take Creon for chronic pancreatitis. On initial presentation to the Emergency Room, she was without any abdominal pain, just upper respiratory symptoms. She had a CT of the abdomen and pelvis without contrast and there was note of polycystic disease within the liver, mild constipation with right lower quadrant renal transplant without hydronephrosis or nephrolithiasis. There was note of severe atrophy versus prior resection of kidneys with persistent multiloculated cystic focus at the interface between the pancreatic tail and the superior left psoas muscle. This could relate to the left kidney or could reflect a pancreatic lesion. She did have this followed up as an outpatient with a erosion control specialist. Those records are unavailable at time of admission. Her vital signs showed that she was febrile with a temperature of 100.3. Pulse 77, blood pressure 135/63, O2 saturation 96% on room air. Given her immunocompromised state from immunosuppressant medications due to the renal transplant and given that she had a fever with some mild confusion and no true source of infection found, she was admitted to the hospital for further evaluation and treatment. She was covered with broad-spectrum coverage with azithromycin and Zosyn initially in the Emergency Room and was admitted to the Medical/Surgical Floor. HOSPITAL COURSE: She was admitted with acute bronchitis and fever of unknown origin with acute on chronic pancreatitis. Dr. Cabrera, E. R. physician, did touch base with Dr. Blake in regards to the patient's finding on kidney function and acute illness. He recommended the patient stay here and be treated for acute bronchitis, to hold immunosuppressant drugs and reassess in the morning. She was initially made NPO. Her labs were rechecked the next morning. She was continued with the azithromycin and put on some Rocephin. She was also given DVT prophylaxis. Over the next several days she continued to improve, although very slowly. She continued with a fairly aggressive cough. She was changed to Levaquin IV in preparation for her to be switched to p.o. at discharge. She has remained afebrile. She was actually to be discharged yesterday but her hemoglobin dropped to 7.7 and although she is chronically anemic, it was felt that we would not transfuse her as the patient felt well and that there may be an issue with hemodilution, so those labs were repeated this morning. Her hemoglobin was 8. She continues to feel well, although she still has a mild cough. She will be discharged home today in stable condition. Close followup with her primary care provider, Dr. Urvashi Cabrera. LABORATORY: Initial WBCs were 18,900 and they slowly improved. Yesterday her white count was 13,400. She came in with a hemoglobin and hematocrit of 9.3 and 28.9. She did receive IV fluids. They dropped as low as 7.7 and 34.6, today is 8.0 and 24.7. Blood sugars ran between 77 and 262. Sodium 133 on admission, yesterday was 137. Potassium was stable between 3.8 and 4.5. BUN initially was 36, yesterday it was 18. Creatinine on admission was 1.22 and yesterday was 1.04. Calcium was slightly low around 8. Urinalysis was unremarkable. Sputum culture is still pending. She did have an Influenza A and B via PCR and they were both negative. Preliminary blood cultures showed no growth in 4 days. RADIOLOGY: Chest x-ray on admission showed no acute findings. Today, was minimal bibasilar opacities representing atelectasis or pneumonia. Right basilar opacities are improved compared to prior. Abdomen and pelvis CT scan was per the History of Present Illness. DISCHARGE PLAN: The patient will be discharged home in stable condition. She is to resume her previous diet as well as increase activity as tolerated. She is to continue her home medications plus 4 additional days of Levaquin. She has a followup appointment with Dr. Cabrera on 09/04/18 at 8:30 AM. It is recommended that she have a CBC and a chest x-ray done at that time. She is to return to the hospital or followup with Dr. Cabrera's office for any problems or complications. DISCHARGE MEDICATIONS: 1. Cellcept. 2. Lomotil. 3. Prograf. 4. Abilify. 5. Bactrim. 6. Cozaar. 7. Cardura. 8. Vitamin B12 injection. 9. Lasix. 10. Calcium. 11. NovoLog. 12. Low dose aspirin. 13. Hydralazine. 14. Multivitamin. 15. Creon. 16. Lipitor. 17. Desyrel. 18. Ursodiol. 19. Lamotrigine. 20. Clonazepam. 21. Lantus. 22. Oxycodone with Acetaminophen. 23. Metoprolol. 24. Prednisone. 25. Levaquin. #[id number] [facility]
== END 2018-09-01 11:15 | disposition home or self-care (01) | DRG 202 ==
LOC: ER 14:58 → MS 19:08
PROVIDERS: ADMIT Nurse Practitioner Family; ATTEND Nurse Practitioner Acute Care
DX: J20.9 Acute bronchitis, unspecified (principal); K85.90 Acute pancreatitis without necrosis or infection, unspecified; T86.19 Other complication of kidney transplant; K86.1 Other chronic pancreatitis; Q61.3 Polycystic kidney, unspecified; E87.1 Hypo-osmolality and hyponatremia; G93.41 Metabolic encephalopathy; K86.2 Cyst of pancreas; E86.0 Dehydration; D63.8 Anemia in other chronic diseases classified elsewhere; E83.42 Hypomagnesemia; K76.89 Other specified diseases of liver; E11.22 Type 2 diabetes mellitus with diabetic chronic kidney disease; N18.9 Chronic kidney disease, unspecified; K59.00 Constipation, unspecified; E78.00 Pure hypercholesterolemia, unspecified; I12.9 Hypertensive chronic kidney disease with stage 1 through stage 4 chronic kidney disease, or unspecified chronic kidney disease; M10.9 Gout, unspecified; K21.9 Gastro-esophageal reflux disease without esophagitis; M85.80 Other specified disorders of bone density and structure, unspecified site; Y83.0 Surgical operation with transplant of whole organ as the cause of abnormal reaction of the patient, or of later complication, without mention of misadventure at the time of the procedure; Y92.9 Unspecified place or not applicable; Z66 Do not resuscitate; Z90.81 Acquired absence of spleen; Z79.52 Long term (current) use of systemic steroids; Z79.891 Long term (current) use of opiate analgesic; Z79.4 Long term (current) use of insulin; Z79.82 Long term (current) use of aspirin; Z88.8 Allergy status to other drugs, medicaments and biological substances; Z79.899 Other long term (current) drug therapy; Z87.891 Personal history of nicotine dependence

== ENCOUNTER → 2018-09-04 | Outpatient (CLI) | payer MEDICARE, OTHER | LOC: GMAM 14:27 | PROVIDERS: ATTEND Family Medicine | DX: E87.1 Hypo-osmolality and hyponatremia (principal); R50.9 Fever, unspecified ==

== ENCOUNTER → 2018-10-24 | Outpatient (CLI) | payer MEDICARE, OTHER | LOC: YCHH 16:37 | PROVIDERS: ATTEND Family Medicine | DX: N39.0 Urinary tract infection, site not specified (principal) ==

== ENCOUNTER → 2018-11-08 | Outpatient (CLI) | payer MEDICARE, OTHER ==
--- NOTE | 2018-11-08 09:31 | RAD ---
EXAM DESCRIPTION: Foot,Left 3 Views CLINICAL HISTORY: 73 years Female, S92.325D/S92.335D COMPARISON: September 21, 2018 FINDINGS: Again seen are nondisplaced fractures involving the proximal thirds of the first through fourth metatarsals, unchanged from the prior study. A small amount of callus formation and sclerosis is noted at the fracture site, unchanged from the previous. The fractures remain at least partially nonunited. There is a slightly angulated fracture of the third metatarsal neck, stable. This appears united. Old healed distal left fibular fracture. No new fracture or malalignment. IMPRESSION: Left foot and ankle fractures as detailed above including non or partially united fractures involving the bases of the first through fourth metatarsals. No significant change from September 21, 2018. Electronically signed by: Toribio Curiel MD 11/08/2018 9:28 AM CDT
== END ==
LOC: RAD 08:08
PROVIDERS: ATTEND Orthopaedic Surgery
DX: S92.325D Nondisplaced fracture of second metatarsal bone, left foot, subsequent encounter for fracture with routine healing (principal); S92.335D Nondisplaced fracture of third metatarsal bone, left foot, subsequent encounter for fracture with routine healing

== ENCOUNTER 2018-12-16 14:10 | Emergency (ER) | payer MEDICARE, OTHER ==
[2018-12-16] MEDS ORDERED: NALOXONE HCL INJ 1 MG/ML SYG ONE ×2 (14:15→17:40)
[2018-12-16] MEDS ORDERED: SODIUM CHLORIDE 0.9% 1000ML 1,000 ML IVS PRN (14:25)
[2018-12-16] MEDS ORDERED: SODIUM CHLORIDE 0.9% (FLUSH) 10 ML SYG IV PRN (14:25)
[2018-12-16] MEDS ORDERED: ONDANSETRON INJ 4 MG/2 ML VIAL IV ONE (14:26)
--- NOTE | 2018-12-16 14:49 | ED.PDOC ---
History of Present Illness - General Source: patient, EMS Exam Limitations: clinical condition - History of Present Illness Initial Comments: patient comes in through EMS for altered LOC and suspected intentional drug overdose. Patient is a chronic opioid user and have OxyContin. Per family she has about 60 tablets that are missing. On arrival patient is not verbally responsive and started to become more sedated. Narcan was given and patient stated that she did intentionally take 20-30 pills this morning wanting to kill herself. Patient has nausea and vomiting but no shortness of breath or respiratory distress. Timing/Duration: unsure Severity: severe Improving Factors: nothing Worsening Factors: nothing Associated Symptoms: nausea/vomiting <SHARA SERRANO - Last Filed: 12/16/18 17:43> <DREW GUY - Last Filed: 12/17/18 00:40> - General Chief Complaint: Drug or Alcohol Abuse Stated Complaint: Possible intentional OD Time Seen by Provider: 12/16/18 14:23 - History of Present Illness Allergies/Adverse Reactions: Allergies Metoclopramide [From Reglan] Allergy (Unknown, Verified 12/16/18 14:34) makes her tongue swell Home Medications: Ambulatory Orders Aripiprazole [Abilify] 2 mg PO DAILY 07/09/12 Diphenoxylate W/ Atropine [Lomotil] 2.5 mg PO PRN PRN 07/09/12 Mycophenolate Mofetil [Cellcept] 250 mg PO BIDFD 07/09/12 Tacrolimus [Prograf] 1.5 mg PO 0800,1800 07/09/12 Losartan Potassium [Cozaar] 50 mg PO DAILY@1800 09/09/14 Sulfamet/Trimeth Tab 400/80 [Bactrim] 1 ea PO KATHI-OTH-DAY 09/09/14 Doxazosin Mesylate [Cardura] 2 mg PO BEDTIME 08/19/15 Calcium 1,000 mg PO BID 03/12/16 Cyanocobalamin Inj [Vitamin B-12 Inj] 1,000 mcg IM MONTHLY 03/12/16 Furosemide [Lasix] 20 mg PO DAILY 03/12/16 Insulin Aspart [Novolog Flexpen] 0 unit SC QID PRN 03/12/16 Aspirin [Qc Chewable Aspirin Low D] 81 mg PO DAILY 03/15/16 hydrALAZINE HCl [HydrALAzine HCl] 75 mg PO TID #60 tab 03/25/16 Atorvastatin Calcium [Lipitor] 20 mg PO 1800 08/27/18 Clonazepam 0.5 mg PO BEDTIME PRN 08/27/18 Insulin Glargine 100U/ml [Lantus] 18 unit SUBCU 0800 08/27/18 Lamotrigine 100 mg PO BEDTIME 08/27/18 Metoprolol Tartrate [Lopressor] 100 mg PO BID 08/27/18 Multiple Vitamin [Multi Vitamin] 1 tab PO DAILY 08/27/18 Oxycodone W/ Acetaminophen [Percocet 10-325 mg] 1 tab PO Q6H 08/27/18 Pancrelipase (Lipase-Protease- [Creon 51175-79[address] Unit] 1 cap PO PRN PRN 08/27/18 Pancrelipase (Lipase-Protease- [Creon [id number] Unit] 2 cap PO TIDFD 08/27/18 Ursodiol 250 mg PO TID 08/27/18 traZODone HCL [Desyrel] 150 mg PO BEDTIME 08/27/18 Non-Formulary Medication 2 mg PO DAILY 08/28/18 Prednisone 5 mg PO DAILY 08/28/18 levoFLOXacin [Levaquin] 500 mg PO DAILY #4 tab 09/01/18 Review of Systems - Review of Systems Constitutional: States: no symptoms reported EENTM: States: no symptoms reported Respiratory: States: no symptoms reported Cardiology: States: no symptoms reported Gastrointestinal/Abdominal: States: nausea, vomiting. Denies: abdominal pain Genitourinary: States: no symptoms reported Musculoskeletal: States: no symptoms reported <SHARA SERRANO - Last Filed: 12/16/18 17:43> Past Medical History (General) - Patient Medical History Hx Seizures: No Hx Stroke: Yes Hx Asthma: No Hx of COPD: No Hx Cardiac Disorders: No Hx Congestive Heart Failure: No Hx Pacemaker: No Hx Hypertension: Yes Hx Diabetes: Yes Hx Gastroesophageal Reflux: Yes Hx Renal Disease: Yes Hx Cancer: Yes - bladder Hx MRSA: No Surgical History: cholecystectomy, Hysterectomy, other - Vaccination History Hx Tetanus, Diphtheria Vaccination: Yes Hx Influenza Vaccination: Yes Hx Pneumococcal Vaccination: Yes - Social History Hx Tobacco Use: No Hx Alcohol Use: No Hx Substance Use: No Hx Substance Use Treatment: No Hx Depression: Yes Hx Physical Abuse: No Hx Emotional Abuse: No - Female History Patient is a Female of Child Bearing Age (10 -59 yrs old): No Patient : No <ALYSSA SERRANOABEL - Last Filed: 12/16/18 17:43> Family Medical History - Family History Father Family History: Unknown Living Status: Hx Family;Other: polycystic kidney disease <ALYSSA SERRANOABEL - Last Filed: 12/16/18 17:43> Physical Exam - Physical Exam General Appearance: Anxious, Frail, No apparent distress Eye Exam: bilateral normal Ears, Nose, Throat: hearing grossly normal, normal ENT inspection, normal pharynx Neck: non-tender, full range of motion, supple, normal inspection Respiratory: chest non-tender, lungs clear, normal breath sounds, no respiratory distress Cardiovascular/Chest: normal peripheral pulses, regular rate, rhythm, no edema, no gallop, no JVD, no murmur Peripheral Pulses: radial,right: 2+, radial,left: 2+ Gastrointestinal/Abdominal: normal bowel sounds, non tender, soft Neurologic: no motor/sensory deficits <ALYSSA SERRANOABEL - Last Filed: 12/16/18 17:43> Progress - Progress Progress: 12/16/18 16:09 patient remains alert and now with no nausea. She states she suffers from depression and was trying to hurt herself. Poison control states continue to monitor if remains asymptomatic for 10 hours then can admit for psychiatric care. 12/16/18 17:31 patient remains asymptomatic. resting but easily arousable 12/16/18 17:43 patient became non responsive again. Narcan was given and patient awake and alert - Results/Orders Results/Orders: 12/16/18 14:25 Sodium Chloride 0.9% (Flush) [Saline Flush Syringe] 10 ml IV PRN PRN Sodium Chloride 0.9% 1000ML [Ns 1000 ml] 1,000 ml IVS .QD 12/16/18 14:30 EKG STAT Laboratory Results WBC 16.7 K/mm3 (4.8-10.8) H 12/16/18 14:25 RBC 3.19 M/mm3 (4.20-5.40) L 12/16/18 14:25 Hgb 9.7 gm/dL (12.0-16.0) L 12/16/18 14:25 Hct 29.9 % (36.0-47.0) L 12/16/18 14:25 MCV 93.6 fl (81.0-99.0) 12/16/18 14:25 MCH 30.5 pg (27.0-31.0) 12/16/18 14:25 MCHC 32.6 g/dL (33.0-37.0) L 12/16/18 14:25 RDW 14.1 % (11.5-14.5) 12/16/18 14:25 Plt Count 287 K/mm3 (130-400) 12/16/18 14:25 MPV 10.5 fl (7.40-10.4) H 12/16/18 14:25 Absolute Neuts (auto) 9.80 K/uL (1.8-6.8) H 12/16/18 14:25 Absolute Lymphs (auto) 5.70 K/uL (1.0-3.4) H 12/16/18 14:25 Absolute Monos (auto) 1.10 K/uL (0.2-0.8) H 12/16/18 14:25 Absolute Eos (auto) 0.00 K/uL (0.0-0.4) 12/16/18 14:25 Absolute Basos (auto) 0.00 K/uL (0.0-0.1) 12/16/18 14:25 Neutrophils % 58.9 % (42.0-78.0) 12/16/18 14:25 Lymphocytes % 34.4 % (20.0-50.0) 12/16/18 14:25 Monocytes % 6.4 % (2.0-9.0) 12/16/18 14:25 Eosinophils % 0.1 % (1.0-5.0) L 12/16/18 14:25 Basophils % 0.2 % (0.0-2.0) 12/16/18 14:25 PT 10.8 SECONDS (9.0-10.9) 12/16/18 14:25 INR 1.08 (0.9-1.15) 12/16/18 14:25 PTT (SP) 26.8 SECONDS (21.8-31.6) 12/16/18 14:25 Sodium 127 mmol/L (135-145) L 12/16/18 14:25 Potassium 4.2 mmol/L (3.6-5.0) 12/16/18 14:25 Chloride 89 mmol/L (101-111) L 12/16/18 14:25 Carbon Dioxide 25 mmol/L (21-31) 12/16/18 14:25 Anion Gap 17.2 (12-18) 12/16/18 14:25 BUN 36 mg/dL (7-18) H 12/16/18 14:25 Creatinine 1.61 mg/dL (0.6-1.3) H 12/16/18 14:25 BUN/Creatinine Ratio 22.4 (10-20) H 12/16/18 14:25 Random Glucose 216 mg/dL (70-105) H 12/16/18 14:25 Serum Osmolality 270.1 mOsm/L (275-295) L 12/16/18 14:25 Calcium 8.9 mg/dL (8.4-10.2) 12/16/18 14:25 Total Bilirubin 0.4 mg/dL (0.2-1.0) 12/16/18 14:25 AST 23 IU/L (10-42) 12/16/18 14:25 ALT 15 IU/L (10-60) 12/16/18 14:25 Alkaline Phosphatase 115 IU/L (42-121) 12/16/18 14:25 Creatine Kinase 36 IU/L (26-140) 12/16/18 14:25 CK-MB (CK-2) 1.1 ng/mL (0.0-4.4) 12/16/18 14:25 CK-MB (CK-2) % Not Reportable 12/16/18 14:25 Troponin I 0.02 ng/mL (0.01-0.05) 12/16/18 14:25 Serum Total Protein 6.8 gm/dL (6.4-8.2) 12/16/18 14:25 Albumin 3.6 g/dl (3.2-5.5) 12/16/18 14:25 Globulin 3.2 gm/dL (2.3-3.5) 12/16/18 14:25 Albumin/Globulin Ratio 1.1 (1.1-1.9) 12/16/18 14:25 Urine Color Yellow (Yellow) 12/16/18 15:39 Urine Appearance Clear (Clear) 12/16/18 15:39 Urine pH 6.0 (4.5-7.8) 12/16/18 15:39 Ur Specific [place] <= 1.005 (1.005-1.030) 12/16/18 15:39 Urine Protein Negative mg/dL 12/16/18 15:39 Urine Glucose (UA) Negative mg/dL (Negative) 12/16/18 15:39 Urine Ketones Negative mg/dL (NEGATIVE) 12/16/18 15:39 Urine Blood Negative (Negative) 12/16/18 15:39 Urine Nitrite Negative 12/16/18 15:39 Urine Bilirubin Negative (NEGATIVE) 12/16/18 15:39 Urine Urobilinogen 0.2 mg/dL (0.2-1.0) 12/16/18 15:39 Ur Leukocyte Esterase Negative (Negative) 12/16/18 15:39 Urine RBC 0 /hpf 12/16/18 15:39 Urine WBC 0 /hpf 12/16/18 15:39 Ur Epithelial Cells 5-10 /hpf 12/16/18 15:39 Urine Bacteria Rare 12/16/18 15:39 Salicylates mg/dL (0-29.9) 12/16/18 14:25 Urine Opiates Screen Positive ng/mL (2000) H 12/16/18 15:39 Acetaminophen < 10.0 ug/mL (10.0-30.0) L 12/16/18 14:25 Urine Barbiturates Negative ng/mL (200) 12/16/18 15:39 Ur Phencyclidine Scrn Negative ng/mL (25) 12/16/18 15:39 U Amphetamin/Meth Scrn Negative ng/mL (1000) 12/16/18 15:39 U Benzodiazepines Scrn Negative ng/mL (200) 12/16/18 15:39 U Cocaine Metab Screen Negative ng/mL (300) 12/16/18 15:39 U Cannabinoids Screen Negative ng/mL (50) 12/16/18 15:39 Ethyl Alcohol < 5.40 mg/dL (0-79) 12/16/18 14:25 - EKG/XRAY/CT EKG: Sinus, no ST T wave changes Comments: HR 84 and normal axis <SERRANO,SHARA - Last Filed: 12/16/18 17:43> - Progress Progress: 12/17/18 00:37 PROGRESS NOTES: 1920: 92/42; 92; 14; 94%. Somnolent. Pinpoint pupils. 2220: 141/61; 90; 20; 98%. Awake but won't answer questions. 0020: somnolent again with pinpoint pupils. SBP 89. Will transfer for higher level of care, possible Narcan infusion. IVF D5 1/2 NS @ 100 ml/hr currently. - Consult/PCP Time Called: 00:36 Consult/PCP: [facility] - Dr. Curiel. Accepted transfer - Additional EKG/XRAY/Consults Comments: <DREW GUY - Last Filed: 12/17/18 00:40> Departure <SHARA SERRANO - Last Filed: 12/16/18 17:43> - Departure Time of Disposition: 00:32 <DREW GUY - Last Filed: 12/17/18 00:40> - Departure Clinical Impression: Hypoglycemia Opioid overdose Qualifiers: Encounter type: initial encounter Injury intent: intentional self-harm Qualified Code(s): T40.2X2A - Poisoning by other opioids, intentional self-harm, initial encounter Suicide attempt by drug ingestion Qualifiers: Encounter type: initial encounter Qualified Code(s): T50.902A - Poisoning by unspecified drugs, medicaments and biological substances, intentional self-harm, initial encounter Disposition: Transfer to Hospital Condition: Fair Home Medications: Ambulatory Orders Aripiprazole [Abilify] 2 mg PO DAILY 07/09/12 Diphenoxylate W/ Atropine [Lomotil] 2.5 mg PO PRN PRN 07/09/12 Mycophenolate Mofetil [Cellcept] 250 mg PO BIDFD 07/09/12 Tacrolimus [Prograf] 1.5 mg PO 0800,1800 07/09/12 Losartan Potassium [Cozaar] 50 mg PO DAILY@1800 09/09/14 Sulfamet/Trimeth Tab 400/80 [Bactrim] 1 ea PO KATHI-OTH-DAY 09/09/14 Doxazosin Mesylate [Cardura] 2 mg PO BEDTIME 08/19/15 Calcium 1,000 mg PO BID 03/12/16 Cyanocobalamin Inj [Vitamin B-12 Inj] 1,000 mcg IM MONTHLY 03/12/16 Furosemide [Lasix] 20 mg PO DAILY 03/12/16 Insulin Aspart [Novolog Flexpen] 0 unit SC QID PRN 03/12/16 Aspirin [Qc Chewable Aspirin Low D] 81 mg PO DAILY 03/15/16 hydrALAZINE HCl [HydrALAzine HCl] 75 mg PO TID #60 tab 03/25/16 Atorvastatin Calcium [Lipitor] 20 mg PO 1800 08/27/18 Clonazepam 0.5 mg PO BEDTIME PRN 08/27/18 Insulin Glargine 100U/ml [Lantus] 18 unit SUBCU 0800 08/27/18 Lamotrigine 100 mg PO BEDTIME 08/27/18 Metoprolol Tartrate [Lopressor] 100 mg PO BID 08/27/18 Multiple Vitamin [Multi Vitamin] 1 tab PO DAILY 08/27/18 Oxycodone W/ Acetaminophen [Percocet 10-325 mg] 1 tab PO Q6H 08/27/18 Pancrelipase (Lipase-Protease- [Creon [id number] Unit] 1 cap PO PRN PRN 08/27/18 Pancrelipase (Lipase-Protease- [Creon 86315-69481 Unit] 2 cap PO TIDFD 08/27/18 Ursodiol 250 mg PO TID 08/27/18 traZODone HCL [Desyrel] 150 mg PO BEDTIME 08/27/18 Non-Formulary Medication 2 mg PO DAILY 08/28/18 Prednisone 5 mg PO DAILY 08/28/18 levoFLOXacin [Levaquin] 500 mg PO DAILY #4 tab 09/01/18 Critical Care Note - Critical Care Note Total Time (mins): 60 <DREW GUY - Last Filed: 12/17/18 00:40> Transfer to Outside Facility - Transfer Information Accepting Facility: [facility] Reason for Transfer: required specialist not available <DREW GUY - Last Filed: 12/17/18 00:40>
[2018-12-16] MEDS ORDERED: NALOXONE HCL INJ 1 MG/ML SYG IV ONE ×3 (15:12→21:10)
--- NOTE | 2018-12-16 22:43 | CT ---
EXAM DESCRIPTION: Noncontrast head CT CLINICAL HISTORY: 73 years, Female, altered mental status TECHNIQUE: 5mm slice thickness axial images through the brain were performed in the absence of intravenous contrast. This exam was performed according to our departmental dose-optimization program which includes use of Automated Exposure Control, adjustment of the mA and/or kV according to patient size and/or use of iterative reconstruction technique. COMPARISON: Noncontrast head CT dated 05/21/2011. FINDINGS: Involutional changes are present. Hypoattenuation involves the periventricular deep white matter. No hemorrhage is identified. The lateral ventricles are not out of proportion to the degree of volume loss. The basal cisterns are patent. NO dense MCA sign. Intact insular cortex. The visualized paranasal sinuses and mastoid air cells are patent. No fracture is identified. Vascular calcifications. IMPRESSION: No acute cortical infarct is detected by noncontrast CT at this time. No hemorrhage. Microvascular disease. Electronically signed by: Eveline Michelle MD 12/16/2018 10:41 PM CDT
[2018-12-16] MEDS ORDERED: DEX 5% W/NACL 0.9% 1000ML 1,000 ML IVS ONE ×2 (23:02→23:05)
--- NOTE | 2018-12-16 23:15 | RAD ---
EXAM: XR Chest, 1 View CLINICAL HISTORY: The patient is 73 years old and is Female; altered mental status TECHNIQUE: Frontal view of the chest. COMPARISON: Chest radiograph from 09/01/2018 FINDINGS: LUNGS: There is mild increased density in the bilateral lower lungs, right more than left. This suggests atelectasis or pneumonia. The upper lungs are clear. PLEURAL SPACE: Unremarkable. No pneumothorax. HEART: Borderline enlargement of the cardiac silhouette. MEDIASTINUM: Unremarkable. BONES/JOINTS: No acute osseous findings. IMPRESSION: Bibasilar atelectasis or pneumonia. Electronically signed by: Jacque Arriaga MD 12/16/2018 11:14 PM CDT
[2018-12-17 00:01] VITALS: O2SAT 99
[2018-12-17] MEDS ORDERED: NALOXONE HCL INJ 1 MG/ML SYG IV ONE (00:27)
[2018-12-17] MEDS ORDERED: PIPERACILLIN/TAZOBACTAM 3.375 GM in SODIUM CHLORIDE 0.9% 100ML 100 ML IVPB ONE (01:18)
[2018-12-17 01:19] VITALS: BP 114/51; TEMP 100.3
[2018-12-17] MEDS ORDERED: PIPERACILLIN/TAZOBACTAM 3.375 GM VIAL IVPB ONE (01:23)
[2018-12-17] MEDS ORDERED: SODIUM CHLORIDE 0.9% 100ML 100 ML IVPB ONE (01:23)
== END 2018-12-17 01:35 | disposition short-term general hospital (02) ==
LOC: ER 14:10
DX: T40.2X2A Poisoning by other opioids, intentional self-harm, initial encounter (principal); E11.649 Type 2 diabetes mellitus with hypoglycemia without coma; F32.9 Major depressive disorder, single episode, unspecified; I12.9 Hypertensive chronic kidney disease with stage 1 through stage 4 chronic kidney disease, or unspecified chronic kidney disease; N18.9 Chronic kidney disease, unspecified; E11.22 Type 2 diabetes mellitus with diabetic chronic kidney disease; K21.9 Gastro-esophageal reflux disease without esophagitis; Z86.73 Personal history of transient ischemic attack (TIA), and cerebral infarction without residual deficits; Z85.51 Personal history of malignant neoplasm of bladder; Z79.4 Long term (current) use of insulin; Z79.82 Long term (current) use of aspirin; Z79.899 Other long term (current) drug therapy; Z88.8 Allergy status to other drugs, medicaments and biological substances
CPT/HCPCS: 36415; 70450; 71045; 80053; 80307; 80320; 80329; 81001; 82550; 82553; 82948; 84484; 85025; 85610; 85730; 87040; 93005; J2310; J2405; J2543; J7030; J7050; J7799

== ENCOUNTER → 2019-01-16 | Outpatient (CLI) | payer MEDICARE, OTHER | LOC: GMAM 10:46 | PROVIDERS: ATTEND Family Medicine | DX: Z94.0 Kidney transplant status (principal); R19.7 Diarrhea, unspecified ==

== ENCOUNTER → 2019-01-23 | Outpatient (CLI) | payer MEDICARE, OTHER | LOC: YCHH 12:13 | PROVIDERS: ATTEND Family Medicine | DX: D64.9 Anemia, unspecified (principal) ==

== ENCOUNTER 2019-03-29 13:39 | Emergency (ER) | payer MEDICARE, OTHER ==
--- NOTE | 2019-03-29 14:18 | RAD ---
EXAM: XR Left Foot Complete, 3 or More Views CLINICAL HISTORY: forefoot pain over the L 2nd MT TECHNIQUE: Frontal, lateral and oblique views of the left foot. COMPARISON: 11/08/2018. FINDINGS: Limitations: None. Bones/joints: Fractures of the proximal shafts of the first, second, third and fourth metatarsals have undergone progressive healing. Alignment anatomic and unchanged. Stable appearance of healed fracture of the distal third metatarsal. Soft tissues: Unremarkable. No radiopaque foreign body. IMPRESSION: Healing fractures first through fourth proximal metatarsals. Electronically signed by: Purnima Hand MD 03/29/2019 2:17 PM [facility]
--- NOTE | 2019-03-29 14:58 | ED.PDOC ---
History of Present Illness - General Chief Complaint: General Stated Complaint: left foot pain Time Seen by Provider: 03/29/19 13:52 Additional Information: Patient with chief complaint of left foot pain for 3-4 days. Pain is centered over the distal aspect of her second metatarsal on the left foot. Pain is improved with rest and worse with standing and walking. Patient denies any trauma or strain to the foot. She indicates that she is recovering from another healing fracture to the lateral aspect of her foot. Patient worries that she has a new fracture and she called her orthopedist Dr. Mei who indicated today that he would only see her if she had a diagnosed fracture on x-ray and that is why she has come to the ED today. She declines any analgesics, she only wants to know if her toe is broken. - History of Present Illness Allergies/Adverse Reactions: Allergies Metoclopramide [From Reglan] Allergy (Unknown, Verified 12/16/18 14:34) makes her tongue swell Home Medications: Ambulatory Orders Diphenoxylate W/ Atropine [Lomotil] 2.5 mg PO PRN PRN 07/09/12 Mycophenolate Mofetil [Cellcept] 250 mg PO BIDFD 07/09/12 Tacrolimus [Prograf] 1.5 mg PO 0800,1800 07/09/12 Losartan Potassium [Cozaar] 50 mg PO DAILY@1800 09/09/14 Sulfamet/Trimeth Tab 400/80 [Bactrim] 1 ea PO KATHI-OTH-DAY 09/09/14 Doxazosin Mesylate [Cardura] 2 mg PO BEDTIME 08/19/15 Calcium 1,000 mg PO BID 03/12/16 Cyanocobalamin Inj [Vitamin B-12 Inj] 1,000 mcg IM MONTHLY 03/12/16 Furosemide [Lasix] 20 mg PO DAILY 03/12/16 Insulin Aspart [Novolog Flexpen] 0 unit SC QID PRN 03/12/16 Aspirin [Qc Chewable Aspirin Low D] 81 mg PO PRN 03/15/16 hydrALAZINE HCl [HydrALAzine HCl] 75 mg PO TID #60 tab 03/25/16 Insulin Glargine 100U/ml [Lantus] 18 unit SUBCU 0800 08/27/18 Lamotrigine 100 mg PO BEDTIME 08/27/18 Metoprolol Tartrate [Lopressor] 100 mg PO BID 08/27/18 Multiple Vitamin [Multi Vitamin] 1 tab PO DAILY 08/27/18 Pancrelipase (Lipase-Protease- [Creon 60905-45383 Unit] 1 cap PO PRN PRN 08/27/18 Pancrelipase (Lipase-Protease- [Creon 55746-13345 Unit] 2 cap PO TIDFD 08/27/18 Ursodiol 250 mg PO TID 08/27/18 Non-Formulary Medication 2 mg PO DAILY 08/28/18 Prednisone 5 mg PO DAILY 08/28/18 Review of Systems - Review of Systems Constitutional: States: no symptoms reported EENTM: States: no symptoms reported Respiratory: States: no symptoms reported Cardiology: States: no symptoms reported Gastrointestinal/Abdominal: States: no symptoms reported Genitourinary: States: no symptoms reported Musculoskeletal: States: see HPI Skin: States: no symptoms reported Neurological: States: no symptoms reported All other Systems: Reviewed and Negative Past Medical History (General) - Patient Medical History Hx Seizures: No Hx Stroke: Yes Hx Asthma: No Hx of COPD: No Hx Cardiac Disorders: No Hx Congestive Heart Failure: No Hx Pacemaker: No Hx Hypertension: Yes Hx Diabetes: Yes Hx Gastroesophageal Reflux: Yes Hx Renal Disease: Yes Hx Cancer: Yes - bladder Hx MRSA: No Surgical History: Hysterectomy - Vaccination History Hx Tetanus, Diphtheria Vaccination: Yes Hx Influenza Vaccination: Yes Hx Pneumococcal Vaccination: Yes - Social History Hx Tobacco Use: No Hx Alcohol Use: No Hx Substance Use: No Hx Substance Use Treatment: No Hx Depression: Yes Hx Physical Abuse: No Hx Emotional Abuse: No - Female History Patient : No Family Medical History - Family History Father Family History: Unknown Living Status: Hx Family;Other: polycystic kidney disease Physical Exam - Physical Exam General Appearance: Alert, Comfortable, No apparent distress, Well Developed, Well Nourished Extremity: other - Left lower leg is in a short walking boot. Removal of the boot reveals normal inspection left foot. Negative edema, erythema, or ecchymoses. Patient with mild tenderness to palpation to the distal aspect dorsally of the second metatarsal. Progress - Progress Progress: EXAM: XR Left Foot Complete, 3 or More Views CLINICAL HISTORY: forefoot pain over the L 2nd MT TECHNIQUE: Frontal, lateral and oblique views of the left foot. COMPARISON: 11/08/2018. FINDINGS: Limitations: None. Bones/joints: Fractures of the proximal shafts of the first, second, third and fourth metatarsals have undergone progressive healing. Alignment anatomic and unchanged. Stable appearance of healed fracture of the distal third metatarsal. Soft tissues: Unremarkable. No radiopaque foreign body. IMPRESSION: Healing fractures first through fourth proximal metatarsals. 03/29/19 15:03 Patient's x-ray reveals no new fracture at the site of patient's pain, only a known healing fracture to the lateral aspect of patient's foot. Patient to continue using her walking boot and she will take her own supply of analgesics and follow-up with her doctor this week for reevaluation as needed. With discharge plan Departure - Departure Clinical Impression: Foot pain, left Time of Disposition: 14:56 Disposition: Discharge to Home or Self Care Condition: Good Departure Forms: ED Discharge - Pt. Copy, Patient Portal Self Enrollment Instructions: Metatarsalgia Referrals: Chapo Cabrera MD [Primary Care Provider] - 1-2 Weeks Home Medications: Ambulatory Orders Diphenoxylate W/ Atropine [Lomotil] 2.5 mg PO PRN PRN 07/09/12 Mycophenolate Mofetil [Cellcept] 250 mg PO BIDFD 07/09/12 Tacrolimus [Prograf] 1.5 mg PO 0800,1800 07/09/12 Losartan Potassium [Cozaar] 50 mg PO DAILY@1800 09/09/14 Sulfamet/Trimeth Tab 400/80 [Bactrim] 1 ea PO KATHI-OTH-DAY 09/09/14 Doxazosin Mesylate [Cardura] 2 mg PO BEDTIME 08/19/15 Calcium 1,000 mg PO BID 03/12/16 Cyanocobalamin Inj [Vitamin B-12 Inj] 1,000 mcg IM MONTHLY 03/12/16 Furosemide [Lasix] 20 mg PO DAILY 03/12/16 Insulin Aspart [Novolog Flexpen] 0 unit SC QID PRN 03/12/16 Aspirin [Qc Chewable Aspirin Low D] 81 mg PO PRN 03/15/16 hydrALAZINE HCl [HydrALAzine HCl] 75 mg PO TID #60 tab 03/25/16 Insulin Glargine 100U/ml [Lantus] 18 unit SUBCU 0800 08/27/18 Lamotrigine 100 mg PO BEDTIME 08/27/18 Metoprolol Tartrate [Lopressor] 100 mg PO BID 08/27/18 Multiple Vitamin [Multi Vitamin] 1 tab PO DAILY 08/27/18 Pancrelipase (Lipase-Protease- [Creon 07624-85815 Unit] 1 cap PO PRN PRN 08/27/18 Pancrelipase (Lipase-Protease- [Creon 03241-10839 Unit] 2 cap PO TIDFD 08/27/18 Ursodiol 250 mg PO TID 08/27/18 Non-Formulary Medication 2 mg PO DAILY 08/28/18 Prednisone 5 mg PO DAILY 08/28/18 Additional Instructions: Continue to use your walking boot as directed and follow-up with your doctor this week for reevaluation.
[2019-03-29 15:07] VITALS: BP 113/57; TEMP 97.9; O2SAT 95
== END 2019-03-29 15:07 | disposition home or self-care (01) ==
LOC: ER 13:39
DX: M79.672 Pain in left foot (principal); F32.9 Major depressive disorder, single episode, unspecified; I12.9 Hypertensive chronic kidney disease with stage 1 through stage 4 chronic kidney disease, or unspecified chronic kidney disease; N18.9 Chronic kidney disease, unspecified; K21.9 Gastro-esophageal reflux disease without esophagitis; E11.22 Type 2 diabetes mellitus with diabetic chronic kidney disease; Z87.81 Personal history of (healed) traumatic fracture; Z86.73 Personal history of transient ischemic attack (TIA), and cerebral infarction without residual deficits; Z79.899 Other long term (current) drug therapy; Z79.4 Long term (current) use of insulin; Z79.82 Long term (current) use of aspirin; Z88.8 Allergy status to other drugs, medicaments and biological substances

== ENCOUNTER → 2019-04-03 | Outpatient (CLI) | payer MEDICARE, OTHER | LOC: YCHH 12:22 | PROVIDERS: ATTEND Family Medicine | DX: E11.9 Type 2 diabetes mellitus without complications (principal); N18.9 Chronic kidney disease, unspecified; D64.9 Anemia, unspecified; E78.5 Hyperlipidemia, unspecified; N39.0 Urinary tract infection, site not specified ==

== ENCOUNTER 2019-04-24 10:53 | Inpatient (IN) | payer MEDICARE, OTHER ==
--- NOTE | 2019-04-24 11:21 | ED.PDOC ---
History of Present Illness - General Chief Complaint: General Stated Complaint: Weakness, nausea Time Seen by Provider: 04/24/19 11:14 - History of Present Illness Initial Comments: 74yo F with report of fatigue, generalized weakness and nausea today. The patient denies fever or recent illness. No chest pain or abdominal pain. She has extensive PMH including renal transplant and diabetes per her report. She is an overall vague historian and repeatedly states she, "just feels icky." Billet Heater states she may have been given her evening dose of medication this morning. No other reported issues at this time. Allergies/Adverse Reactions: Allergies Metoclopramide [From Reglan] Allergy (Unknown, Verified 12/16/18 14:34) makes her tongue swell Home Medications: Ambulatory Orders Diphenoxylate W/ Atropine [Lomotil] 2.5 mg PO PRN PRN 07/09/12 Mycophenolate Mofetil [Cellcept] 250 mg PO BIDFD 07/09/12 Tacrolimus [Prograf] 1.5 mg PO 0800,1800 07/09/12 Losartan Potassium [Cozaar] 50 mg PO DAILY@1800 09/09/14 Sulfamet/Trimeth Tab 400/80 [Bactrim] 1 ea PO KATHI-OTH-DAY 09/09/14 Doxazosin Mesylate [Cardura] 2 mg PO BEDTIME 08/19/15 Calcium 1,000 mg PO BID 03/12/16 Cyanocobalamin Inj [Vitamin B-12 Inj] 1,000 mcg IM MONTHLY 03/12/16 Furosemide [Lasix] 20 mg PO DAILY 03/12/16 Insulin Aspart [Novolog Flexpen] 0 unit SC QID PRN 03/12/16 Aspirin [Qc Chewable Aspirin Low D] 81 mg PO PRN 03/15/16 hydrALAZINE HCl [HydrALAzine HCl] 75 mg PO TID #60 tab 03/25/16 Insulin Glargine 100U/ml [Lantus] 18 unit SUBCU 0800 08/27/18 Lamotrigine 100 mg PO BEDTIME 08/27/18 Metoprolol Tartrate [Lopressor] 100 mg PO BID 08/27/18 Multiple Vitamin [Multi Vitamin] 1 tab PO DAILY 08/27/18 Pancrelipase (Lipase-Protease- [Creon [id number] Unit] 1 cap PO PRN PRN Pancrelipase (Lipase-Protease- [Creon 75101-25228 Unit] 2 cap PO TIDFD 08/27/18 Ursodiol 250 mg PO TID 08/27/18 Non-Formulary Medication 2 mg PO DAILY 08/28/18 Prednisone 5 mg PO DAILY 08/28/18 Review of Systems - Review of Systems Constitutional: States: weakness - Generalized weakness. Denies: chills, fever EENTM: Denies: double vision, nose congestion Respiratory: States: cough. Denies: short of breath Cardiology: Denies: chest pain, palpitations Gastrointestinal/Abdominal: States: nausea. Denies: diarrhea Genitourinary: Denies: dysuria, frequency Musculoskeletal: Denies: back pain, joint pain, neck pain Skin: Denies: change in color, rash Neurological: Denies: anxiety, numbness, weakness Endocrine: States: no symptoms reported Hematologic/Lymphatic: States: no symptoms reported Past Medical History (General) - Patient Medical History Hx Seizures: No Hx Stroke: Yes Hx Asthma: No Hx of COPD: No Hx Cardiac Disorders: Yes Hx Congestive Heart Failure: No Hx Pacemaker: No Hx Hypertension: Yes Hx Diabetes: Yes Hx Gastroesophageal Reflux: Yes Hx Renal Disease: Yes - Kidney transplant 2007 Hx Cancer: Yes - bladder Hx MRSA: No Surgical History: other - Vaccination History Hx Tetanus, Diphtheria Vaccination: Yes Hx Influenza Vaccination: Yes Hx Pneumococcal Vaccination: Yes - Social History Hx Tobacco Use: No Hx Alcohol Use: No Hx Substance Use: No Hx Substance Use Treatment: No Hx Depression: Yes Hx Physical Abuse: No Hx Emotional Abuse: No - Female History Patient : No Family Medical History - Family History Father Family History: Unknown Living Status: Hx Family;Other: polycystic kidney disease Physical Exam - Physical Exam General Appearance: Alert, Restless, Well Developed Eye Exam: bilateral normal Ears, Nose, Throat: normal pharynx, other - No congestion Neck: non-tender, full range of motion, supple Respiratory: chest non-tender, lungs clear, normal breath sounds, no respiratory distress, no accessory muscle use, rales - few scattered Cardiovascular/Chest: normal peripheral pulses, regular rate, rhythm, no edema Gastrointestinal/Abdominal: normal bowel sounds, non tender, soft Back Exam: no CVA tenderness, no vertebral tenderness Extremity: normal range of motion, non-tender, other - No swelling Neurologic: no motor/sensory deficits, alert, normal mood/affect, oriented x 3 Skin Exam: normal color, warm/dry Lymphatic: no adenopathy Progress - Progress Progress: 04/24/19 13:12 Pt with leukocytosis of unclear significance, but may be related to pneumonia as indicated on CXR. No clear alternate source at this time. Pt remains alert/oriented, afebrile and non-tachycardic in the ED. She is hypoglycemic, which was addressed. Given her medical complexity and findings, admission is warranted for further treatment and observation. Case discussed with Pat who accepts patient into the hospital. 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 04/24/19 13:18 [id number] - Results/Orders Results/Orders: 04/24/19 11:27 EKG .ONCE 04/24/19 12:37 LACTIC ACID Stat Piperacillin/Tazobactam [Zosyn] 4.5 gm Sodium Chloride 0.9% 100Ml [NS (NACL 0.9%) 100ml] 100 ml IVPB ONCE BLOOD CULTURE Stat URINALYSIS Stat 04/24/19 12:40 Sodium Chloride 0.9% 1000ML [Ns 1000 ml] 1,000 ml IVS .QD 04/24/19 13:02 ED Intent to Admit Routine Laboratory Results - last 24 hr 04/24/19 04/24/19 04/24/19 11:27 11:27 11:27 WBC 28.8 H* RBC 3.47 L Hgb 10.4 L Hct 32.6 L MCV 94.1 MCH 30.0 MCHC 31.8 L RDW 14.5 Plt Count 253 MPV 10.0 Absolute Neuts (auto) 17.90 H Absolute Lymphs (auto) 7.70 H Absolute Monos (auto) 2.90 H Absolute Eos (auto) 0.10 Absolute Basos (auto) 0.10 Neutrophils % 62.3 Neutrophils % (Manual) 54.0 Lymphocytes % 26.7 Lymphocytes % (Manual) 28.0 Monocytes % 10.2 H Monocytes % (Manual) 7.0 Eosinophils % 0.4 L Basophils % 0.4 Band Neutrophils 10.0 H Metamyelocytes 1.0 H Platelet Estimate Normal Anisocytosis 2+ PT 11.1 H INR 1.11 Sodium 132 L Potassium 3.9 Chloride 95 L Carbon Dioxide 24 Anion Gap 16.9 BUN 54 H Creatinine 1.50 H BUN/Creatinine Ratio 36.0 H Random Glucose 49 L Serum Osmolality 276.5 Calcium 8.6 Total Bilirubin 0.7 AST 26 ALT 17 Alkaline Phosphatase 144 H Troponin I Serum Total Protein 6.2 L Albumin 3.3 Globulin 2.9 Albumin/Globulin Ratio 1.1 04/24/19 11:29 WBC RBC Hgb Hct MCV MCH MCHC RDW Plt Count MPV Absolute Neuts (auto) Absolute Lymphs (auto) Absolute Monos (auto) Absolute Eos (auto) Absolute Basos (auto) Neutrophils % Neutrophils % (Manual) Lymphocytes % Lymphocytes % (Manual) Monocytes % Monocytes % (Manual) Eosinophils % Basophils % Band Neutrophils Metamyelocytes Platelet Estimate Anisocytosis PT INR Sodium Potassium Chloride Carbon Dioxide Anion Gap BUN Creatinine BUN/Creatinine Ratio Random Glucose Serum Osmolality Calcium Total Bilirubin AST ALT Alkaline Phosphatase Troponin I 0.03 Serum Total Protein Albumin Globulin Albumin/Globulin Ratio - EKG/XRAY/CT XRAY: chest - Possible RLL infiltrated: See formal read Departure - Departure Clinical Impression: Hypoglycemia, Renal transplant, status post Pneumonia Qualifiers: Pneumonia type: due to unspecified organism Laterality: right Lung location: lower lobe of lung Qualified Code(s): J18.9 - Pneumonia, unspecified organism Leukocytosis, unspecified Qualifiers: Leukocytosis type: unspecified Qualified Code(s): D72.829 - Elevated white blood cell count, unspecified Time of Disposition: 13:10 Disposition: Admit Patient Condition: Fair Referrals: Chapo Cabrera MD [Primary Care Provider] - 1-2 Weeks Home Medications: Ambulatory Orders Diphenoxylate W/ Atropine [Lomotil] 2.5 mg PO PRN PRN 07/09/12 Mycophenolate Mofetil [Cellcept] 250 mg PO BIDFD 07/09/12 Tacrolimus [Prograf] 1.5 mg PO 0800,1800 07/09/12 Losartan Potassium [Cozaar] 50 mg PO DAILY@1800 09/09/14 Sulfamet/Trimeth Tab 400/80 [Bactrim] 1 ea PO KATHI-OTH-DAY 09/09/14 Doxazosin Mesylate [Cardura] 2 mg PO BEDTIME 08/19/15 Calcium 1,000 mg PO BID 03/12/16 Cyanocobalamin Inj [Vitamin B-12 Inj] 1,000 mcg IM MONTHLY 03/12/16 Furosemide [Lasix] 20 mg PO DAILY 03/12/16 Insulin Aspart [Novolog Flexpen] 0 unit SC QID PRN 03/12/16 Aspirin [Qc Chewable Aspirin Low D] 81 mg PO PRN 03/15/16 hydrALAZINE HCl [HydrALAzine HCl] 75 mg PO TID #60 tab 03/25/16 Insulin Glargine 100U/ml [Lantus] 18 unit SUBCU 0800 08/27/18 Lamotrigine 100 mg PO BEDTIME 08/27/18 Metoprolol Tartrate [Lopressor] 100 mg PO BID 08/27/18 Multiple Vitamin [Multi Vitamin] 1 tab PO DAILY 08/27/18 Pancrelipase (Lipase-Protease- [Creon 59021-22616 Unit] 1 cap PO PRN PRN 08/27/18 Pancrelipase (Lipase-Protease- [Creon 07564-59262 Unit] 2 cap PO TIDFD 08/27/18 Ursodiol 250 mg PO TID 08/27/18 Non-Formulary Medication 2 mg PO DAILY 08/28/18 Prednisone 5 mg PO DAILY 08/28/18 Decision To Admit - Decistion To Admit Decision to Admit Reason: Admit from ER Decision to Admit Date: 04/24/19 Decision to Admit Time: 13:02
[2019-04-24] MEDS ORDERED: SODIUM CHLORIDE 0.9% 1000ML 500 ML IVS ONE ×3 (11:28→11:31)
[2019-04-24] MEDS ORDERED: LACTATED RINGERS 1,000 ML IVS ONE (11:29)
--- NOTE | 2019-04-24 12:25 | RAD ---
EXAM DESCRIPTION: XR Chest,1 View CLINICAL HISTORY: 74 years Female, Dizziness COMPARISON: December 16, 2018. FINDINGS: Heart size and mediastinal and hilar structures appear essentially within normal limits, considering technique and patient rotation to the left. There may be slight eventration of the right hemidiaphragm. There is faintly increased density in the right lung base, which is less than on the previous study, and clearing of mild disease in the left base.. Abnormality in the right base could represent slight residual disease or recurrent disease subsequent to interval clearing. The lungs appear otherwise essentially clear. Regional bony structures as visualized appear grossly unchanged. IMPRESSION: Slight residual or recurrent infiltrative change in the right lung base. Electronically signed by: Alfonzo Salgado MD 04/24/2019 12:23 PM [facility]
[2019-04-24] MEDS ORDERED: DEXTROSE 50% 25 GM/50 ML SYG IV ONE (12:29)
[2019-04-24] MEDS ORDERED: PIPERACILLIN/TAZOBACTAM 4.5 GM in SODIUM CHLORIDE 0.9% 100ML 100 ML IVPB ONE (12:37)
[2019-04-24] MEDS ORDERED: PIPERACILLIN/TAZOBACTAM 2.25 GM VIAL IVPB ONE (12:54)
[2019-04-24] MEDS ORDERED: SODIUM CHLORIDE 0.9% 100ML 100 ML IVPB ONE (12:55)
--- NOTE | 2019-04-24 14:00 | HP ---
SUPERVISING PHYSICIAN: Nick Arzola MD CHIEF COMPLAINT: Weakness with some nausea. HISTORY OF PRESENT ILLNESS: This is a 74 year-old female patient who has an extensive medical history including a renal transplant and chronic renal insufficiency. She came to the Emergency Room today due to just feeling poorly over the last week or so. She had generalized weakness and fatigue with some nausea, although she does have a history of chronic nausea. Her initial vital signs showed a temperature of 98.7, heart rate 95, blood pressure 144/73, respiratory rate of 18, oxygen saturation 94% on room air. Laboratory studies were done, she had a sodium of 132 with potassium 3.9 and chloride 95, carbon dioxide 24, BUN 54, creatinine 1.5 which is about her baseline creatinine. Glucose was quite low at 49 and she had an alkaline phosphatase of 144. Lactic 2.1. WBCs 28,800 with hemoglobin of 10.4 and hematocrit 32.6. Urinalysis was within normal limits. Chest x-ray shows right lower lobe infiltrate. It is to be noted that she is a very poor historian, in fact, has some history of being admitted for metabolic encephalopathy. Her was quite concerned that he thought she took her evening medications early this morning as the slot that they were in in her medicine organizer was empty. She was given some fluids in the Emergency Room and started on Zosyn and I was called for hospital admission. PAST MEDICAL HISTORY: 1. Hyperlipidemia. 2. Hypertension. 3. Chronic pancreatitis. 4. Polycystic kidney disease. 5. Irritable bowel syndrome. 6. Diverticulosis. 7. Gout. 8. Osteopenia. 9. Type 2 diabetes mellitus. 10. Pancreatic cyst. 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 12. Multiple hospitalizations for pancreatitis.. PAST SURGICAL HISTORY: 1. Peripancreatic soft tissue biopsy in June of 2017 showing to be benign. 2. Bilateral cataract removal. 3. Cholecystectomy. 4. Hysterectomy.. 5. Bilateral nephrectomy. 6. Renal transplant. CURRENT MEDICATIONS: Per the EMR and awaiting verification. ALLERGIES: Metoclopramide. FAMILY HISTORY: Positive for polycystic kidney disease and lymphoma. SOCIAL HISTORY: The patient lives in [place]. She is retired. She is . She quit smoking many years ago. She does not drink or use illicit drugs. REVIEW OF SYSTEMS: Somewhat difficult to obtain, although she does answer some questions appropriately. GENERAL: Positive for malaise and weakness. Negative for chills or fever. HEENT: Negative for sinus symptoms, ear pain, vision changes, sore throat. RESPIRATORY: Positive for coughing and some mild shortness of breath, negative for wheezing. CARDIAC: Negative for chest pain, palpitations, tachycardia. GI: Positive for nausea and chronic diarrhea. Negative for vomiting or constipation. GENITOURINARY: Negative for hematuria, dysuria, polyuria. MUSCULOSKELETAL: Negative for arthralgias, myalgias. SKIN: Negative for lesions or rashes. NEUROLOGICAL: Positive for some mild confusion as reported by her but that is mostly at baseline. Negative for seizures. PHYSICAL EXAMINATION: VITAL SIGNS: Temperature 98.7, heart rate 88, blood pressure 138/75, respiratory rate 18, oxygen saturation 94% on room air. GENERAL: This is a 74 year-old female patient who is lying in her hospital bed. She is awake and alert. HEENT: Normocephalic and atraumatic. Pupils are equal and reactive. Oropharynx is clear. NECK: Supple without mass. RESPIRATORY: Diminished at the bases with a few scattered rhonchi but somewhat clears with coughing. There is no wheezing or crackles. CHEST: There is equal rise and fall of the chest with inspiration and expiration. CARDIOVASCULAR: Regular rate and rhythm. At times, she is slightly tachycardic. ABDOMEN: Soft, nondistended, non-tender. Bowel sounds are positive. EXTREMITIES: No cyanosis, clubbing, or edema. NEUROLOGIC: She is awake and alert. She is oriented to person and place. She does know it's day but she is unable to answer what year it is. Cranial nerves II through XII are grossly intact as tested. SKIN: Warm and dry. LABORATORY: Labs and films are as per the history of present illness. ASSESSMENT: 1. Sepsis related to right lower lobe pneumonia, likely community acquired. She has WBC of 28,800 and heart rate of 94. 2. Immunocompromised state status post kidney transplant. She is on antirejection medications. 3. Renal insufficiency with renal transplant. She is at her baseline creatinine. 4. Electrolyte imbalance. 5. Hyperlipidemia. 6. History of chronic pancreatitis in a patient with a history of polycystic kidney disease. No signs or symptoms of exacerbation. 7. Hypertension. 8. Gastroesophageal reflux disease. 9. Diabetes mellitus type 2. PLAN: The patient has been admitted to the hospital. I have started her on the pneumonia protocol. I did not continue with the Zosyn due to her poor kidney function so I have aggressive pulmonary hygiene. We will monitor her cultures as they become available. We will restart her home medications, labs in the morning. She will have Lovenox for DVT prophylaxis and will continue to monitor her closely and follow as needed. #[id number] MTDD
[2019-04-24] MEDS ORDERED: LEVALBUTEROL NEBS 1.25 MG/3 ML VIAL NEB PRN (14:29)
[2019-04-24] MEDS ORDERED: SODIUM CHLORIDE 0.9% (FLUSH) 10 ML SYG IV PRN (14:29)
[2019-04-24] MEDS ORDERED: QUEtiapine FUMARATE 25 MG TAB PO ONE (14:30)
[2019-04-24] MEDS: IV SET AND CAP CHANGE INJ INJ SCH (15:26)
[2019-04-24] MEDS ORDERED: cefTRIAXone SODIUM 1 GM VIAL ONE (15:27)
[2019-04-24] MEDS ORDERED: SODIUM CHL 0.9% 50ML MIN-BAG+ 50 ML IVPB ONE (15:27)
[2019-04-24] MEDS: SODIUM CHLORIDE 0.9% 1000ML 1,000 ML IVS PRN (15:28)
[2019-04-24] MEDS: cefTRIAXone SODIUM 1 GM in SODIUM CHL 0.9% 50ML MIN-BAG+ 50 ML IVPB SCH (15:28)
[2019-04-24] MEDS: LEVALBUTEROL NEBS 1.25 MG/3 ML VIAL NEB SCH ×2 (16:35→20:22)
[2019-04-24] MEDS ORDERED: GLUCAGON INJ 1 MG VIAL SUBCU PRN (17:24)
[2019-04-24] MEDS ORDERED: DEXTROSE 50% 25 GM/50 ML SYG IV PRN (17:24)
[2019-04-24] MEDS ORDERED: AZITHROMYCIN IV 500 MG VIAL IVPB ONE (17:40)
[2019-04-24] MEDS ORDERED: SODIUM CHLORIDE 0.9% 250ML 250 ML ONE (17:40)
[2019-04-24] MEDS: AZITHROMYCIN IV 500 MG in SODIUM CHLORIDE 0.9% 250ML 250 ML IVPB SCH (17:44)
[2019-04-24] MEDS ORDERED: [UNRECOGNIZED DRUG - OTHER] SL PRN (18:39)
[2019-04-24] MEDS ORDERED: [UNRECOGNIZED DRUG - OTHER] PO PRN (18:39)
[2019-04-24] MEDS: METOPROLOL TARTRATE 50 MG TAB PO SCH (20:06)
[2019-04-24] MEDS: MYCOPHENOLATE MOFETIL 250 MG PO SCH (20:06)
[2019-04-24] MEDS: QUETIAPINE FUMARATE 200 MG PO SCH (20:07)
[2019-04-24] MEDS: TACROLIMUS 1 MG PO SCH (20:08)
[2019-04-24] MEDS: TACROLIMUS 0.5 MG PO SCH (20:08)
[2019-04-24] MEDS: lamoTRIgine 100 MG TAB PO SCH (20:09)
[2019-04-24] MEDS ORDERED: PANTOPRAZOLE SODIUM IV 40 MG VIAL ONE (20:36)
[2019-04-24] MEDS: ENOXAPARIN SODIUM 40 MG/0.4 ML SYG SUBCU SCH (20:58)
[2019-04-24] MEDS: URSODIOL 250 MG PO SCH (20:58)
[2019-04-24] MEDS: DOXAZOSIN MESYLATE 2 MG TAB PO SCH (20:58)
[2019-04-24] MEDS: INSULIN LISPRO 100 UNITS/ML PEN SUBCU SCH (21:06)
[2019-04-25] MEDS: SODIUM CHLORIDE 0.9% 1000ML 1,000 ML IVS PRN ×3 (02:24→21:46)
[2019-04-25] MEDS: PANTOPRAZOLE SODIUM IV 40 MG VIAL IV SCH (06:25)
--- NOTE | 2019-04-25 07:09 | RAD ---
EXAM DESCRIPTION: X-ray two view chest. CLINICAL HISTORY: 74 years Female, Pneumonia COMPARISON: 04/24/2019 and 12/16/2018 TECHNIQUE: PA and Lateral views of the chest performed on 04/25/2019 at 5:34 AM FINDINGS: The lungs are well expanded. There is mild diffuse prominence of the interstitial lung markings which may reflect chronic interstitial lung disease, interstitial edema or possibly interstitial pneumonitis. There is questionable minimal airspace disease in the right inferior hemithorax and possible blunting of the left costophrenic sulci. There is no evidence of a pneumothorax. The cardiac silhouette is normal in size. The mediastinal contours are normal. No acute osseous abnormalities are identified. No focal soft tissue abnormalities are identified. IMPRESSION: 1. Mild diffuse prominence of the interstitial lung markings similar when compared to prior studies. Findings could reflect chronic interstitial lung disease, interstitial edema or interstitial pneumonitis. 2. Blunting of the left posterior and lateral costophrenic sulci which may be due to a small effusion, atelectasis or inflammatory change. 3. Question minimal airspace disease in the right inferior hemithorax. Electronically signed by: Ladi Rodriguez DO 04/25/2019 7:07 AM [facility]
[2019-04-25] MEDS: LEVALBUTEROL NEBS 1.25 MG/3 ML VIAL NEB SCH ×4 (07:56→20:16)
[2019-04-25] MEDS ORDERED: INSULIN DETEMIR 100 UNITS/ML PEN SUBCU SCH (08:00)
[2019-04-25] MEDS: ESCITALOPRAM 10 MG TAB PO SCH (08:16)
[2019-04-25] MEDS: METOPROLOL TARTRATE 50 MG TAB PO SCH ×2 (08:16→16:41)
[2019-04-25] MEDS: predniSONE 5 MG TAB PO SCH (08:16)
[2019-04-25] MEDS: BIFIDOBACTERIUM INFANTIS 4 MG CAP PO SCH (08:16)
[2019-04-25] MEDS: LOSARTAN POTASSIUM 25 MG TAB PO SCH (08:16)
[2019-04-25] MEDS: INSULIN LISPRO 100 UNITS/ML PEN SUBCU SCH ×4 (08:17→21:37)
[2019-04-25] MEDS: [UNRECOGNIZED DRUG - OTHER] PO SCH ×3 (08:17→16:41)
[2019-04-25] MEDS: TACROLIMUS 1 MG PO SCH ×2 (08:17→18:00)
[2019-04-25] MEDS: MYCOPHENOLATE MOFETIL 250 MG PO SCH ×2 (08:17→16:41)
[2019-04-25] MEDS: TACROLIMUS 0.5 MG PO SCH ×2 (08:17→18:00)
[2019-04-25] MEDS: URSODIOL 250 MG PO SCH ×3 (08:18→20:42)
[2019-04-25] MEDS ORDERED: lamoTRIgine 100 MG TAB PO SCH (09:00)
--- NOTE | 2019-04-25 09:29 | CT ---
EXAM DESCRIPTION: Chest w/o Contrast CLINICAL HISTORY: 74 years, Female, pneumonia COMPARISON: Chest x-ray April 25, 2019 at time 5:34 AM, CT abdomen and pelvis August 27, 2018 which included the lower chest TECHNIQUE: Thin-section noncontrast axial CT images are obtained according to our protocol. Reconstructed MPR images are created and reviewed as well. FINDINGS: Lungs: Patchy areas of focal pneumonic consolidation is present in the posterior segment right upper lobe, lateral segment right middle lobe and in the posterior and lateral basal segments right lower lobe. Follow-up until clear. Biapical pleural-parenchymal scarring. Patchy infiltrate or chronic scarring in the inferior lingula and in the lateral basal segment left lower lobe. Patchy consolidation in the anteromedial basal segment left lower lobe is seen anterior to small pleural effusion. Mediastinum: Lymph nodes are normal in size. Normal vascular contours. Heart size is large with no pericardial effusion. Low density blood pool may indicate anemia. Correlate with other studies. Chest wall/axilla: No mass or adenopathy. Lower neck/supraclavicular: No mass or adenopathy. Inhomogeneity of the thyroid gland. Consider additional imaging. Upper abdomen: Multiple cysts in the liver with prominent cysts in the left renal fossa. Question thickening of the tail the pancreas (possible pancreatitis or pancreatic mass). Consider CT of the abdomen, preferably with contrast. IMPRESSION: Pulmonary infiltrates, predominantly on the right, consistent with pneumonia. Small left pleural effusion. Multiple cysts in the liver. Questionable appearance of the pancreatic tail, partially visualized. See above. This exam was performed according to our departmental dose-optimization program, which includes automated exposure control, adjustment of the mA and/or kV according to patient size and/or use of iterative reconstruction technique. Total DLP equals 274.05 mGycm. Electronically signed by: Mika Novoa MD 04/25/2019 9:27 AM PROFESSIONAL BENEFITS SALES CONSULTANT
[2019-04-25] MEDS: QUEtiapine FUMARATE 25 MG TAB PO SCH (12:02)
[2019-04-25] MEDS ORDERED: DEXTROSE 10% IVS PRN (12:54)
--- NOTE | 2019-04-25 13:48 | PN ---
SUPERVISING PHYSICIAN: Nick Arzola MD DATE: 04/25/19 SUBJECTIVE: The patient is sitting up in bed. It was reported that she had a low blood sugar this morning in the 40s and was somewhat lethargic. She is now drinking orange juice and eating yogurt. She is more alert. She has no complaints of shortness of breath, chest pain, nausea or vomiting. Her did says he got quite diaphoretic when her blood sugars are low and we discussed low blood sugars and signs and symptoms. OBJECTIVE: VITAL SIGNS: Temperature 97.6. Heart rate 77. Blood pressure 136/79. Respiratory rate 18. O2 98% on room air. RESPIRATORY: Diminished at the bases, especially on the right side with a few scattered rhonchi. No crackles or wheezes noted. CARDIAC: Regular rate and rhythm. GASTROINTESTINAL: Abdomen is soft, nondistended, nontender. Bowel sounds are positive. NEUROLOGIC: Awake, alert and oriented times three. LABORATORY: WBCs 26,000, hemoglobin 9.8, hematocrit 31. Blood sugars have run between 40s and 202. Electrolytes are basically within normal limits with the exception of her calcium is slightly low at 8.3. Alkaline phosphatase is high at 138. Preliminary blood cultures are negative to date. RADIOLOGY: Chest x-ray this morning shows 1) Mild diffuse prominence of the interstitial lung markings when compared to prior studies. Findings could reflect chronic interstitial lung disease, interstitial edema or interstitial pneumonitis. 2) Blunting of the left posterolateral costophrenic sulci which may be due to small effusion, atelectasis or inflammatory change. 3) Question minimal airspace disease in the right inferior hemithorax. Her chest CT showed pulmonary infiltrates predominantly of the right consistent with pneumonia, a small left pleural effusion, multiple cysts in the liver and questionable appearance of the pancreatic tail partially visualized. All other labs and films have been reviewed via the EMR. ASSESSMENT: 1. Sepsis related to right lower lobe pneumonia, likely community acquired. She has WBC of 28,800 on admission and heart rate of 94. 2. Immunocompromised state status post kidney transplant. She is on antirejection medications. 3. Anemia, most likely of chronic disease. 4. Renal insufficiency with renal transplant. She is at her baseline creatinine. 5. Electrolyte imbalance, improved. 6. Hyperlipidemia. 7. History of chronic pancreatitis in a patient with a history of polycystic kidney disease. No signs or symptoms of exacerbation. 9. Hypertension. 9. Gastroesophageal reflux disease. 10. Diabetes mellitus, type 2. 11. Hypoglycemia, most likely due to poor appetite and infectious process. PLAN: We will continue present supportive care including her Rocephin and azithromycin. I will recheck her labs in the morning. At this point, I do not see any problems with her kidney, but if needed, we will call her director of assessing. I have also decreased her long-acting insulin to 5 units at night. She was getting 8 units and at this point, her appetite is very poor, so I think we will need a smaller dosing. I will continue with good pulmonary hygiene. Her home medications have been restarted. We will continue to monitor the patient closely and follow as needed. #[id number] [facility]
[2019-04-25] MEDS ORDERED: SODIUM CHL 0.9% 50ML MIN-BAG+ 50 ML IVPB ONE (14:22)
[2019-04-25] MEDS ORDERED: cefTRIAXone SODIUM 1 GM VIAL ONE (14:22)
[2019-04-25] MEDS: cefTRIAXone SODIUM 1 GM in SODIUM CHL 0.9% 50ML MIN-BAG+ 50 ML IVPB SCH (14:32)
[2019-04-25] MEDS ORDERED: AZITHROMYCIN IV 500 MG VIAL IVPB ONE (16:22)
[2019-04-25] MEDS ORDERED: SODIUM CHLORIDE 0.9% 250ML 250 ML ONE (16:22)
[2019-04-25] MEDS: AZITHROMYCIN IV 500 MG in SODIUM CHLORIDE 0.9% 250ML 250 ML IVPB SCH (17:59)
[2019-04-25] MEDS: QUETIAPINE FUMARATE 200 MG PO SCH ×3 (18:51→20:40)
[2019-04-25] MEDS: lamoTRIgine 100 MG TAB PO SCH (19:50)
[2019-04-25] MEDS: DOXAZOSIN MESYLATE 2 MG TAB PO SCH (20:40)
[2019-04-25] MEDS: ENOXAPARIN SODIUM 40 MG/0.4 ML SYG SUBCU SCH (20:41)
[2019-04-26] MEDS: SODIUM CHLORIDE 0.9% 1000ML 1,000 ML IVS PRN ×2 (05:17→14:44)
[2019-04-26] MEDS: PANTOPRAZOLE SODIUM IV 40 MG VIAL IV SCH (06:12)
[2019-04-26] MEDS: ACETAMINOPHEN 325 MG TAB PO PRN (06:19)
[2019-04-26] MEDS: INSULIN LISPRO 100 UNITS/ML PEN SUBCU SCH ×4 (07:11→21:05)
[2019-04-26] MEDS: METOPROLOL TARTRATE 50 MG TAB PO SCH ×2 (08:06→18:02)
[2019-04-26] MEDS: predniSONE 5 MG TAB PO SCH (08:07)
[2019-04-26] MEDS: ESCITALOPRAM 10 MG TAB PO SCH (08:07)
[2019-04-26] MEDS: LOSARTAN POTASSIUM 25 MG TAB PO SCH (08:07)
[2019-04-26] MEDS: [UNRECOGNIZED DRUG - OTHER] PO SCH ×3 (08:07→18:03)
[2019-04-26] MEDS: BIFIDOBACTERIUM INFANTIS 4 MG CAP PO SCH (08:07)
[2019-04-26] MEDS: MYCOPHENOLATE MOFETIL 250 MG PO SCH ×2 (08:08→18:04)
[2019-04-26] MEDS: INSULIN DETEMIR 100 UNITS/ML PEN SUBCU SCH (08:08)
[2019-04-26] MEDS: SULFAMETHOXAZOLE PO SCH (08:08)
[2019-04-26] MEDS: TACROLIMUS 1 MG PO SCH ×2 (08:08→18:03)
[2019-04-26] MEDS: TACROLIMUS 0.5 MG PO SCH ×2 (08:08→18:03)
[2019-04-26] MEDS: URSODIOL 250 MG PO SCH ×3 (08:08→21:02)
[2019-04-26] MEDS: TRIMETHOPRIM PO SCH (08:08)
[2019-04-26] MEDS: LEVALBUTEROL NEBS 1.25 MG/3 ML VIAL NEB SCH ×4 (08:47→20:00)
[2019-04-26] MEDS: QUEtiapine FUMARATE 25 MG TAB PO SCH (12:18)
[2019-04-26] MEDS ORDERED: cefTRIAXone SODIUM 1 GM VIAL ONE (14:41)
[2019-04-26] MEDS ORDERED: SODIUM CHL 0.9% 50ML MIN-BAG+ 50 ML IVPB ONE (14:41)
[2019-04-26] MEDS: cefTRIAXone SODIUM 1 GM in SODIUM CHL 0.9% 50ML MIN-BAG+ 50 ML IVPB SCH (14:43)
[2019-04-26] MEDS ORDERED: SODIUM CHLORIDE 0.9% 250ML 250 ML ONE (17:36)
[2019-04-26] MEDS ORDERED: AZITHROMYCIN IV 500 MG VIAL IVPB ONE (17:36)
[2019-04-26] MEDS: AZITHROMYCIN IV 500 MG in SODIUM CHLORIDE 0.9% 250ML 250 ML IVPB SCH (18:04)
[2019-04-26] MEDS ORDERED: PANTOPRAZOLE SODIUM TAB 40 MG PO ONE (19:39)
[2019-04-26] MEDS: lamoTRIgine 100 MG TAB PO SCH (21:01)
[2019-04-26] MEDS: DOXAZOSIN MESYLATE 2 MG TAB PO SCH (21:01)
[2019-04-26] MEDS: ENOXAPARIN SODIUM 40 MG/0.4 ML SYG SUBCU SCH (21:01)
[2019-04-26] MEDS: QUETIAPINE FUMARATE 200 MG PO SCH (21:02)
[2019-04-26] MEDS: ONDANSETRON INJ 4 MG/2 ML VIAL IV PRN (21:42)
[2019-04-27] MEDS: SODIUM CHLORIDE 0.9% 1000ML 1,000 ML IVS PRN (01:42)
[2019-04-27] MEDS: ONDANSETRON INJ 4 MG/2 ML VIAL IV PRN (01:46)
[2019-04-27] MEDS: PANTOPRAZOLE SODIUM TAB 40 MG PO SCH (06:09)
[2019-04-27] MEDS: INSULIN LISPRO 100 UNITS/ML PEN SUBCU SCH ×4 (07:14→21:34)
[2019-04-27] MEDS: METOPROLOL TARTRATE 50 MG TAB PO SCH ×2 (07:29→17:14)
[2019-04-27] MEDS: [UNRECOGNIZED DRUG - OTHER] PO SCH ×3 (07:30→17:12)
[2019-04-27] MEDS: MYCOPHENOLATE MOFETIL 250 MG PO SCH ×2 (07:31→17:13)
[2019-04-27] MEDS: ACETAMINOPHEN 325 MG TAB PO PRN (07:38)
[2019-04-27] MEDS: DIPHENOXYLATE HCL/ATROPINE 2.5 MG TAB PO PRN (07:54)
[2019-04-27] MEDS: TACROLIMUS 0.5 MG PO SCH ×2 (07:55→17:55)
[2019-04-27] MEDS: TACROLIMUS 1 MG PO SCH ×2 (07:56→17:55)
--- NOTE | 2019-04-27 08:15 | RAD ---
EXAM: Chest,2 Views HISTORY: Pneumonia COMPARISON: Chest two views 04/25/2019 CT chest 04/25/2019 TECHNIQUE: Chest two views PA and lateral FINDINGS: Patient mildly rightward rotated. Heart size within normal limits. Moderate hazy and dense bilateral lower lung field opacities. Mild bilateral perihilar interstitial lung opacities. Causes include asthma, bronchitis, interstitial pulmonary edema, pulmonary fibrosis, viral infection, and interstitial bacterial infection. Bilateral costophrenic angle blunting. No pneumothorax. No acute fracture. IMPRESSION: No significant change in overall lung aeration. 1. Moderate hazy and dense bilateral lower lung field opacities. Causes include airspace pulmonary edema and infection. 2. Mild bilateral perihilar interstitial lung opacities. Causes include bronchitis, interstitial pulmonary edema, pulmonary fibrosis, viral infection, and interstitial bacterial infection. 3. Small bilateral pleural effusions. Electronically signed by: Steven Castle MD 04/27/2019 8:13 AM MOTOR SETTER
--- NOTE | 2019-04-27 08:33 | PN ---
SUPERVISING PHYSICIAN: Nick Arzola MD DATE: 04/26/19 SUBJECTIVE: The patient is resting in bed. She is not complaining any shortness of breath or the patient. Notes she feels a little bit better than yesterday. Blood sugar was low again this morning at 42. She is not showing any residual complications to treatment. She remains afebrile. OBJECTIVE: VITAL SIGNS: Temperature 98.3. Heart rate 86. Blood pressure 153/71. Respiratory rate 18. O2 94% on room air. I&O: Positive balance of 150, weight 64.7 kg. GENERAL: Patient is resting comfortably, appears to be in no acute distress. CHEST. Sounds noted for a coarse rhonchi heard on the right side, more prominent on the lateral posterior aspect. Left is fairly clear but diminished. No obvious wheezing or rales. CARDIAC: Regular rate and rhythm. GASTROINTESTINAL: Abdomen is soft, nondistended, nontender. Bowel sounds are positive. NEUROLOGIC: Alert and oriented times three. LABORATORY: White down to 17,100 with hemoglobin 9.3 and hematocrit9 3.7. Differential does continue to show a left shift but no bands today. Chemistries show normal electrolytes with a potassium of 4.4, BUN 34, creatinine 1.18. Blood sugars range between 42s and 129. Calcium 8.2, magnesium 1.7, liver functions all within normal limits except for elevated alkaline phosphatase at 138. MICROBIOLOGY: Blood culture remain negative today and sputum is pending. RADIOLOGY: No radiographic studies today. She had a CT of the chest yesterday. ASSESSMENT: 1. Right lower lobe pneumonia community acquired with sepsis. 2. Immunocompromised state due to kidney transplant and antirejection medications. complicating #1. 3. Chronic anemia. 4. Renal insufficiency with renal transplant. She is at her baseline creatinine. 5. Electrolyte imbalance, improved. 6. Hyperlipidemia. 7. History of chronic pancreatitis in a patient with a history of polycystic kidney disease. No signs or symptoms of exacerbation. 8. Hypertension. 9. Gastroesophageal reflux disease. 10. Diabetes mellitus, type 2. 11. Hypoglycemia, most likely due to poor appetite and infectious process. PLAN: We will continue with parenteral antibodies to include Rocephin and azithromycin. I will continue to follow her kidney function. We decreased her long-acting insulin from yesterday, hopefully this will decrease the amount of hypoglycemic event. She continues on aggressive pulmonary hygiene. Given that she does have a kidney transplant is on antirejection medication, I would anticipate at least another 24 hours, possibly 48 hours, discharging maybe by Monday. Until then, we will continue to monitor and treat as needed. [id number] [facility]
[2019-04-27] MEDS: LOSARTAN POTASSIUM 25 MG TAB PO SCH (08:52)
[2019-04-27] MEDS: predniSONE 5 MG TAB PO SCH (08:52)
[2019-04-27] MEDS: ESCITALOPRAM 10 MG TAB PO SCH (08:52)
[2019-04-27] MEDS: INSULIN DETEMIR 100 UNITS/ML PEN SUBCU SCH (08:53)
[2019-04-27] MEDS: URSODIOL 250 MG PO SCH ×3 (08:53→20:41)
[2019-04-27] MEDS: BIFIDOBACTERIUM INFANTIS 4 MG CAP PO SCH (08:54)
[2019-04-27] MEDS: SODIUM CHLORIDE 0.9% (FLUSH) 10 ML SYG IV SCH ×2 (08:54→20:40)
[2019-04-27] MEDS: LEVALBUTEROL NEBS 1.25 MG/3 ML VIAL NEB SCH ×4 (09:51→20:30)
--- NOTE | 2019-04-27 12:33 | PN ---
DATE: 04/27/19 SUPERVISING PHYSICIAN: Nick Arzola M.D. SUBJECTIVE: The patient notes that she has had a little bit of nausea but not actually vomiting. She denied any chest pains, any abdominal pains, any diarrhea. Blood sugars have been fairly stable since changing her Levemir. She has remained afebrile. OBJECTIVE: VITAL SIGNS: temperature 98.9, pulse 80, blood pressure 174/63, respirations 20, satting 92% on room air. GENERAL: The patient is resting comfortably sitting in the bedside chair having finished breakfast. She appears to be in no acute distress. CHEST: Lung sounds are a little clearer than yesterday with better aeration. No obvious wheezing or rales. There is a little bit of faint rhonchi heard continued on the right side, again more prominent on the lateral posterior aspect. HEART: Regular rate and rhythm. ABDOMEN: Soft, non-tender. Positive bowel sounds. EXTREMITIES: Without any edema. NEUROLOGIC: She is alert and oriented times three. LABORATORY: White count remains about the same from yesterday at 17.2, hemoglobin 8.9, hematocrit 28.0, platelet count 239,000. Differential does show an improving left shift. No bands. Chemistries show creatinine has been stable. Blood sugars are running between 85 and 205. MICROBIOLOGY: Sputum culture is pending. Blood culture is pending. RADIOLOGY: Chest x-ray this morning per radiology interpretation showed no significant change in overall lung aeration. There remains moderate hazy dense bilateral lower lung field opacities with mild bilateral perihilar interstitial lung opacities. Please see that report for details. ASSESSMENT: 1. Right lower lobe pneumonia community acquired with sepsis. 2. Immunocompromised state due to kidney transplant and antirejection medications. complicating #1. 3. Chronic anemia. Continue to monitor. 4. Renal insufficiency with renal transplant. She is at her baseline creatinine. 5. Electrolyte imbalance, improved. 6. Hyperlipidemia. 7. History of chronic pancreatitis in a patient with a history of polycystic kidney disease. No signs or symptoms of exacerbation. 8. Hypertension. 9. Gastroesophageal reflux disease. 10. Diabetes mellitus, type 2, improved with modification of long acting insulin. 11. Hypoglycemia, most likely due to poor appetite and infectious process. PLAN: Will continue with Rocephin and azithromycin. Clinically she is showing to be improving a little bit but she continues to have high white count which for me is concerning considering that she is on multiple antirejection medications due to her kidney transplant. Given her risk factors she certainly will benefit from additional parenteral antibiotic coverage to ensure that her white count is responding. Blood sugars now seem to be stable on Levemir dose. Will continue with aggressive pulmonary hygiene. Will go ahead and plan to follow her BMP in the morning. Will hold off on a repeat chest x-ray. Until we can transition her to outpatient management and we have some cultures back from the sputum will continue to monitor and treat as needed. [facility][id number] [facility]
[2019-04-27] MEDS: QUEtiapine FUMARATE 25 MG TAB PO SCH (12:53)
[2019-04-27] MEDS: IV SET AND CAP CHANGE INJ INJ SCH (14:52)
[2019-04-27] MEDS: cefTRIAXone SODIUM 1 GM in SODIUM CHL 0.9% 50ML MIN-BAG+ 50 ML IVPB SCH (15:03)
[2019-04-27] MEDS ORDERED: SODIUM CHL 0.9% 50ML MIN-BAG+ 50 ML IVPB ONE (15:10)
[2019-04-27] MEDS ORDERED: cefTRIAXone SODIUM 1 GM VIAL IVPB ONE (15:10)
[2019-04-27] MEDS ORDERED: AZITHROMYCIN IV 500 MG VIAL IVPB ONE (17:49)
[2019-04-27] MEDS ORDERED: SODIUM CHLORIDE 0.9% 250ML 250 ML ONE (17:49)
[2019-04-27] MEDS: AZITHROMYCIN IV 500 MG in SODIUM CHLORIDE 0.9% 250ML 250 ML IVPB SCH (17:55)
[2019-04-27] MEDS: lamoTRIgine 100 MG TAB PO SCH (20:19)
[2019-04-27] MEDS: DOXAZOSIN MESYLATE 2 MG TAB PO SCH (20:40)
[2019-04-27] MEDS: QUETIAPINE FUMARATE 200 MG PO SCH (20:40)
[2019-04-27] MEDS: ENOXAPARIN SODIUM 40 MG/0.4 ML SYG SUBCU SCH (20:40)
[2019-04-28] MEDS: PANTOPRAZOLE SODIUM TAB 40 MG PO SCH (06:10)
[2019-04-28] MEDS: METOPROLOL TARTRATE 50 MG TAB PO SCH ×2 (07:11→17:09)
[2019-04-28] MEDS: [UNRECOGNIZED DRUG - OTHER] PO SCH ×3 (07:11→17:09)
[2019-04-28] MEDS: MYCOPHENOLATE MOFETIL 250 MG PO SCH ×2 (07:11→17:09)
[2019-04-28] MEDS: INSULIN LISPRO 100 UNITS/ML PEN SUBCU SCH ×4 (07:13→21:23)
[2019-04-28] MEDS: TACROLIMUS 1 MG PO SCH ×2 (08:19→17:29)
[2019-04-28] MEDS: TACROLIMUS 0.5 MG PO SCH ×2 (08:19→17:29)
[2019-04-28] MEDS: LOSARTAN POTASSIUM 25 MG TAB PO SCH (08:21)
[2019-04-28] MEDS: predniSONE 5 MG TAB PO SCH (08:21)
[2019-04-28] MEDS: ESCITALOPRAM 10 MG TAB PO SCH (08:21)
[2019-04-28] MEDS: BIFIDOBACTERIUM INFANTIS 4 MG CAP PO SCH (08:21)
[2019-04-28] MEDS: SODIUM CHLORIDE 0.9% (FLUSH) 10 ML SYG IV SCH ×2 (08:22→20:03)
[2019-04-28] MEDS: TRIMETHOPRIM PO SCH (08:23)
[2019-04-28] MEDS: SULFAMETHOXAZOLE PO SCH (08:23)
[2019-04-28] MEDS: URSODIOL 250 MG PO SCH ×3 (08:24→20:01)
[2019-04-28] MEDS: DIPHENOXYLATE HCL/ATROPINE 2.5 MG TAB PO PRN (08:44)
[2019-04-28] MEDS: LEVALBUTEROL NEBS 1.25 MG/3 ML VIAL NEB SCH ×4 (08:50→20:52)
[2019-04-28] MEDS: INSULIN DETEMIR 100 UNITS/ML PEN SUBCU SCH (09:25)
[2019-04-28] MEDS: QUEtiapine FUMARATE 25 MG TAB PO SCH (11:58)
[2019-04-28] MEDS ORDERED: FUROSEMIDE 40 MG TAB PO ONE (12:49)
[2019-04-28] MEDS ORDERED: SODIUM CHL 0.9% 50ML MIN-BAG+ 50 ML IVPB ONE (14:46)
[2019-04-28] MEDS ORDERED: cefTRIAXone SODIUM 1 GM VIAL ONE (14:46)
[2019-04-28] MEDS: cefTRIAXone SODIUM 1 GM in SODIUM CHL 0.9% 50ML MIN-BAG+ 50 ML IVPB SCH (14:48)
[2019-04-28] MEDS ORDERED: AZITHROMYCIN IV 500 MG VIAL IVPB ONE (17:24)
[2019-04-28] MEDS ORDERED: SODIUM CHLORIDE 0.9% 250ML 250 ML ONE (17:24)
[2019-04-28] MEDS: AZITHROMYCIN IV 500 MG in SODIUM CHLORIDE 0.9% 250ML 250 ML IVPB SCH (17:29)
[2019-04-28] MEDS: ENOXAPARIN SODIUM 40 MG/0.4 ML SYG SUBCU SCH (20:01)
[2019-04-28] MEDS: lamoTRIgine 100 MG TAB PO SCH (20:02)
[2019-04-28] MEDS: QUETIAPINE FUMARATE 200 MG PO SCH (20:02)
[2019-04-28] MEDS: DOXAZOSIN MESYLATE 2 MG TAB PO SCH (20:02)
--- NOTE | 2019-04-28 20:21 | PN ---
DATE: 04/28/19 SUPERVISING PHYSICIAN: Nick Arzola M.D. SUBJECTIVE: The patient notes that she is not feeling as well as she was yesterday. She is just weak. Feels like her ankles are swelling. She does take Lasix p.r.n. at home. She has not had any diarrhea. No chest pains. OBJECTIVE: VITAL SIGNS: T max temperature is 99.7, pulse 79, blood pressure 152/67, respirations 17 to 20, satting 93% on room air at rest. I's and O's are showing a negative balance of 375. Weight is showing to be stable at 65 kg. GENERAL: The patient is resting comfortably. Appears to be in no acute distress. CHEST: Sounds are fairly clear, just continuing with the rhonchi heard on the right side again on the lateral posterior aspect. No wheezing or rales. HEART: Regular rate and rhythm. ABDOMEN: Soft, non-tender. Positive bowel sounds. EXTREMITIES: Today, showed trace of edema bilaterally. NEUROLOGIC: She is alert and oriented times three. LABORATORY White count is improved a little bit, it is down to 16,700 with hemoglobin 9.1, hematocrit 28.6, platelet count 260,000. Differential does continue to show a left shift. Chemistries show sodium 134, creatinine 1.19, anion gap is normal, calcium normal at 8.5. Blood sugars are now ranging between 90 and 193. MICROBIOLOGY: Sputum culture is pending. Blood cultures remain negative after 4 days. RADIOLOGY: No additional radiographic studies today. ASSESSMENT: 1. Right lower lobe pneumonia community acquired with sepsis in an immunocompromised patient due to antirejection medications showing slow response to parenteral antibiotics. 2. Immunocompromised state due to kidney transplant and antirejection medications. complicating #1. 3. Chronic anemia. Continue to monitor. 4. Renal insufficiency with renal transplant. She is at her baseline creatinine. 5. Electrolyte imbalance, improved. 6. Hyperlipidemia. 7. History of chronic pancreatitis in a patient with a history of polycystic kidney disease. No signs or symptoms of exacerbation. 8. Hypertension. 9. Gastroesophageal reflux disease. 10. Diabetes mellitus, type 2, improved with modification of long acting insulin. 11. Hypoglycemia, most likely due to poor appetite and infectious process. PLAN: Will continue Rocephin and azithromycin, and follow her CBCs. I am hoping that as it continues to return to baseline tomorrow hopefully will be able to discharge her home. Again, she is at risk since she came in with a significant degree of sepsis and is on antirejection medications due to her kidney transplant. Will continue to follow her blood sugars as she remains on Levemir. Will recheck labs in the morning as necessary. Until then will continue to monitor and treat as needed. [facility][id number] [facility]
[2019-04-29 05:41] VITALS: TEMP 98.3
[2019-04-29] MEDS: PANTOPRAZOLE SODIUM TAB 40 MG PO SCH (06:00)
[2019-04-29] MEDS: INSULIN LISPRO 100 UNITS/ML PEN SUBCU SCH (07:36)
[2019-04-29] MEDS: [UNRECOGNIZED DRUG - OTHER] PO SCH (07:39)
[2019-04-29] MEDS: MYCOPHENOLATE MOFETIL 250 MG PO SCH (07:39)
[2019-04-29] MEDS: TACROLIMUS 1 MG PO SCH (07:40)
[2019-04-29] MEDS: TACROLIMUS 0.5 MG PO SCH (07:40)
[2019-04-29] MEDS: LEVALBUTEROL NEBS 1.25 MG/3 ML VIAL NEB SCH (08:30)
[2019-04-29] MEDS: ESCITALOPRAM 10 MG TAB PO SCH (08:35)
[2019-04-29] MEDS: METOPROLOL TARTRATE 50 MG TAB PO SCH (08:35)
[2019-04-29] MEDS: BIFIDOBACTERIUM INFANTIS 4 MG CAP PO SCH (08:36)
[2019-04-29] MEDS: predniSONE 5 MG TAB PO SCH (08:36)
[2019-04-29] MEDS: LOSARTAN POTASSIUM 25 MG TAB PO SCH (08:36)
[2019-04-29] MEDS: INSULIN DETEMIR 100 UNITS/ML PEN SUBCU SCH (08:37)
[2019-04-29] MEDS: URSODIOL 250 MG PO SCH (08:38)
[2019-04-29] MEDS: SODIUM CHLORIDE 0.9% (FLUSH) 10 ML SYG IV SCH (08:38)
[2019-04-29] MEDS: DIPHENOXYLATE HCL/ATROPINE 2.5 MG TAB PO PRN (09:18)
[2019-04-29 10:38] VITALS: BP 134/74; O2SAT 95
--- NOTE | 2019-05-06 08:24 | DS ---
SUPERVISING PHYSICIAN: Abbe Alford MD ADMISSION DIAGNOSIS: 1. Sepsis related to right lower lobe pneumonia, likely community acquired. She has WBC of 28,800 and heart rate of 94. 2. Immunocompromised state status post kidney transplant. She is on antirejection medications. 3. Renal insufficiency with renal transplant. She is at her baseline creatinine. 4. Electrolyte imbalance. 5. Hyperlipidemia. 6. History of chronic pancreatitis in a patient with a history of polycystic kidney disease. No signs or symptoms of exacerbation. 7. Hypertension. 8. Gastroesophageal reflux disease. 9. Diabetes mellitus, type 2. DISCHARGE DIAGNOSIS: 1. Right lower lobe pneumonia community acquired with sepsis in an immunocompromised patient due to antirejection medications with the patient showing good response to parenteral antibiotics. 2. Immunocompromised state due to kidney transplant and antirejection medications. complicating #1. 3. Chronic anemia, stable. 4. Renal insufficiency with renal transplant. She is at her baseline creatinine. 5. Electrolyte imbalance, improved. 6. Hyperlipidemia. 7. History of chronic pancreatitis in a patient with a history of polycystic kidney disease. No signs or symptoms of exacerbation. 8. Hypertension. 9. Gastroesophageal reflux disease. 10. Diabetes mellitus, type 2, improved with modification of long acting insulin. 11. Hypoglycemia, most likely due to poor appetite and infectious process. REASON FOR HOSPITALIZATION: This is a 74 year-old female patient who has an extensive medical history including a renal transplant and chronic renal insufficiency. She came to the Emergency Room today due to just feeling poorly over the last week or so. She had generalized weakness and fatigue with some nausea, although she does have a history of chronic nausea. Her initial vital signs showed a temperature of 98.7, heart rate 95, blood pressure 144/73, respiratory rate of 18, oxygen saturation 94% on room air. Laboratory studies were done, she had a sodium of 132 with potassium 3.9 and chloride 95, carbon dioxide 24, BUN 54, creatinine 1.5 which is about her baseline creatinine. Glucose was quite low at 49 and she had an alkaline phosphatase of 144. Lactic 2.1. WBCs 28,800 with hemoglobin of 10.4 and hematocrit 32.6. Urinalysis was within normal limits. Chest x-ray shows right lower lobe infiltrate. It is to be noted that she is a very poor historian, in fact, has some history of being admitted for metabolic encephalopathy. Her was quite concerned that he thought she took her evening medications early this morning as the slot that they were in in her medicine organizer was empty. She was given some fluids in the Emergency Room and started on Zosyn. The patient was admitted in stable condition. LABORATORY: Initial white count 28,800 with a left shift and 10% bands. Prior to discharge, left shift was resolving and white count was 16,500 with the patient having a chronic leukocytosis. Hemoglobin and hematocrit were stable at 9 and 28.1. Coagulation studies showed normal PT. Renal functional was normal at discharge at 1.19. Electrolytes were within normal limits except for some slightly low sodium at 134. Blood sugars have been well controlled between 85 and 265 prior to discharge. She did have a hypoglycemic episode with glucose at 50 and 49. Calcium normal at 8.5. Liver functions were within normal limits. Troponin negative at 0.03. Magnesium was a little low at 1.7. MICROBIOLOGY: Blood cultures showed no growth at 5 days. Sputum culture was canceled due to the fact that it was showing greater than 10 epithelials. RADIOLOGY: Chest x-ray on admission showed slight residual or recurrent infiltrate change in the right lung base. She had multiple chest x-rays with the last one being on 04/27/19 and per radiologic interpretation of a two-view chest showed no significant changes in overall lung aeration. There was note of moderate hazy and dense bilateral lung field opacities with mild bilateral perihilar interstitial lung opacities, small bilateral pleural effusions. HOSPITAL COURSE: Ms. Pierre was admitted for treatment of underlying pneumonia, sepsis. She was treated with antibiotics aggressively that included initially Zosyn and was changed due to the fact that she has a single kidney and is at risk. She was changed to ceftriaxone and azithromycin. She was on aggressive pulmonary hygiene. She did show good response to treatment. She did have a few low blood sugars, but after modification of her regimen, insulin and diet, she was stable prior to discharge. Vital signs at discharge showed she was afebrile with temperature 98.3, pulse 76, blood pressure 136/74, saturation 95% on room air. PLAN: Ms. Pierre was discharged on 04/29/19 with instructions to followup with Dr. Cabrera on 05/06/19 at 8 AM. She was to resume her medications as instructed and told to return to the hospital should she have any concerning symptoms. Diet at discharge was diabetic as tolerated. Activity as tolerated. Medications prescribed on discharge included: 1. Cefdinir 300 mg twice daily, #10. 2. Lomotil 2.5 mg tablets, 5 mg 4 times daily as needed, #15, no refills. All other medications prior to hospital were continued as is. CONDITION ON DISCHARGE: Stable and improved. DISPOSITION: The patient was discharged home. [facility][id number] [facility]
== END 2019-04-29 10:38 | disposition home health service (06) | DRG 871 ==
LOC: ER 10:53 → MS 13:58 → OBSVTOIN 13:58
PROVIDERS: ADMIT Nurse Practitioner Acute Care; ATTEND Nurse Practitioner Family
DX: A41.9 Sepsis, unspecified organism (principal); J18.9 Pneumonia, unspecified organism; K86.1 Other chronic pancreatitis; Q61.3 Polycystic kidney, unspecified; Z94.0 Kidney transplant status; D64.9 Anemia, unspecified; E78.5 Hyperlipidemia, unspecified; E11.649 Type 2 diabetes mellitus with hypoglycemia without coma; K21.9 Gastro-esophageal reflux disease without esophagitis; I12.9 Hypertensive chronic kidney disease with stage 1 through stage 4 chronic kidney disease, or unspecified chronic kidney disease; N18.9 Chronic kidney disease, unspecified; E11.22 Type 2 diabetes mellitus with diabetic chronic kidney disease; K58.9 Irritable bowel syndrome, unspecified; M10.9 Gout, unspecified; M85.80 Other specified disorders of bone density and structure, unspecified site; Z66 Do not resuscitate; Z88.8 Allergy status to other drugs, medicaments and biological substances; Z87.891 Personal history of nicotine dependence; Z79.4 Long term (current) use of insulin; Z79.82 Long term (current) use of aspirin; Z79.52 Long term (current) use of systemic steroids; Z79.899 Other long term (current) drug therapy

== ENCOUNTER → 2019-05-29 | Outpatient (CLI) | payer MEDICARE, OTHER | LOC: GMAM 11:51 | PROVIDERS: ATTEND Family Medicine | DX: Z94.0 Kidney transplant status (principal) ==

== ENCOUNTER 2019-06-10 22:31 | Emergency (ER) | payer MEDICARE, OTHER ==
[2019-06-10 22:44] VITALS: TEMP 98.3; O2SAT 95
--- NOTE | 2019-06-10 23:01 | ED.PDOC ---
History of Present Illness - General Chief Complaint: Skin/Abrasion/Tear Stated Complaint: left ear bleeding from biopsy Time Seen by Provider: 06/10/19 22:57 Source: patient Exam Limitations: no limitations - History of Present Illness Initial Comments: The patient is a 74-year-old female presented to the emergency room secondary to bleeding from a biopsy site to the left posterior ear. The biopsy was done earlier today. Bleeding restarted about 30 minutes ago. Timing/Duration: 1/2 hour Severity: mild Improving Factors: nothing Worsening Factors: nothing Associated Symptoms: denies symptoms Allergies/Adverse Reactions: Allergies Metoclopramide [From Reglan] Allergy (Unknown, Verified 06/10/19 22:44) makes her tongue swell Home Medications: Ambulatory Orders Diphenoxylate W/ Atropine [Lomotil] 5 mg PO QID PRN 07/09/12 Mycophenolate Mofetil [Cellcept] 250 mg PO BIDFD 07/09/12 Tacrolimus [Prograf] 0.5 mg PO 0800,1800 07/09/12 Sulfamet/Trimeth Tab 400/80 [Bactrim] 1 ea PO KATHI-OTH-DAY 09/09/14 Doxazosin Mesylate [Cardura] 2 mg PO BEDTIME 08/19/15 Cyanocobalamin Inj [Vitamin B-12 Inj] 1,000 mcg IM MONTHLY 03/12/16 Furosemide [Lasix] 20 - 40 mg PO DAILY PRN 03/12/16 Insulin Aspart [Novolog Flexpen] 0 unit SC QID PRN 03/12/16 hydrALAZINE HCl [HydrALAzine HCl] 75 mg PO TID #60 tab 03/25/16 Insulin Glargine 100U/ml [Lantus] 18 unit SUBCU 0800 08/27/18 Multiple Vitamin [Multi Vitamin] 1 tab PO DAILY 08/27/18 Pancrelipase (Lipase-Protease- [Creon [id number] Unit] 2 cap PO TIDFD 08/27/18 Ursodiol 250 mg PO TID 08/27/18 Prednisone 5 mg PO DAILY 08/28/18 Bifidobacterium Infantis [Align] 4 mg PO DAILY 04/24/19 Buprenorphine HCl-Naloxone HCl [Buprenorphine HCl/Naloxon 2-0.5 mg] 0.5 ea SL Q6H PRN 04/24/19 Calcium Carbonate [Calcium] 500 mg PO DAILY 04/24/19 Escitalopram Oxalate [Lexapro] 20 mg PO DAILY 04/24/19 Lamotrigine [Lamictal] 200 mg PO DAILY 04/24/19 Losartan Potassium 50 mg PO DAILY 04/24/19 Metoprolol Tartrate [Lopressor] 100 mg PO BID 04/24/19 Pancrelipase (Lipase-Protease- [Creon 41462-54908 Unit] 1 cap PO PRN PRN 04/24/19 QUEtiapine FUMARATE [Seroquel] 75 mg PO DAILY@1200 04/24/19 Quetiapine Fumarate [Quetiapine Fumarate ER] 200 mg PO DAILY@1900 04/24/19 Tacrolimus [Prograf] 1 mg PO 0800,1800 04/24/19 Cefdinir [Omnicef] 300 mg PO BID #10 cap 04/29/19 Diphenoxylate/Atropine [Lomotil Tab] 5 mg PO QID PRN #15 tab 04/29/19 Review of Systems - Review of Systems Constitutional: States: no symptoms reported EENTM: States: see HPI Respiratory: States: no symptoms reported Cardiology: States: no symptoms reported Gastrointestinal/Abdominal: States: no symptoms reported Genitourinary: States: no symptoms reported Musculoskeletal: States: no symptoms reported Skin: States: see HPI Neurological: States: no symptoms reported Endocrine: States: no symptoms reported All other Systems: No Change from Baseline Past Medical History (General) - Patient Medical History Hx Seizures: No Hx Stroke: No - TIAs Hx Dementia: No Hx Asthma: No Hx of COPD: No Hx Cardiac Disorders: No Hx Congestive Heart Failure: No Hx Pacemaker: No Hx Hypertension: Yes Hx Thyroid Disease: No Hx Diabetes: Yes Hx Gastroesophageal Reflux: No Hx Renal Disease: Yes - hx kidney transfer, 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 Hx Cancer: - bladder, skin Hx of HIV: No Hx MRSA: No Surgical History: cholecystectomy, Hysterectomy - Vaccination History Hx Tetanus, Diphtheria Vaccination: No Hx Influenza Vaccination: Yes Hx Pneumococcal Vaccination: Yes - Social History Hx Tobacco Use: No Hx Alcohol Use: No Hx Substance Use: No Hx Substance Use Treatment: No Hx Depression: Yes Hx Physical Abuse: No Hx Emotional Abuse: No - Female History Patient : No Family Medical History - Family History Father Family History: Unknown Living Status: Hx Family;Other: polycystic kidney disease Physical Exam - Physical Exam General Appearance: Alert, Comfortable, No apparent distress Eye Exam: bilateral normal Ears, Nose, Throat: hearing grossly normal, normal pharynx, other - Bleeding from the operative site to the left posterior ear Neck: full range of motion, supple Respiratory: no respiratory distress, no accessory muscle use Cardiovascular/Chest: normal peripheral pulses, no edema Peripheral Pulses: radial,right: 2+, radial,left: 2+ Rectal Exam: deferred Extremity: no pedal edema, normal capillary refill 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 The entire length of the excision was bleeding. Chemical cautery was used followed by Steri-Strips to maintain hemostasis. Patient tolerated this well. Estimated blood loss 2 cc. ER warnings were given. 06/10/19 23:00 ori jett [id number] Departure - Departure Clinical Impression: Postoperative bleeding from incision Disposition: Discharge to Home or Self Care Condition: Fair Departure Forms: ED Discharge - Pt. Copy, Patient Portal Self Enrollment Diet: diabetic diet Activity: increase activity as tolerated Referrals: Chapo Jett MD [Primary Care Provider] - 1-2 Weeks Home Medications: Ambulatory Orders Diphenoxylate W/ Atropine [Lomotil] 5 mg PO QID PRN 07/09/12 Mycophenolate Mofetil [Cellcept] 250 mg PO BIDFD 07/09/12 Tacrolimus [Prograf] 0.5 mg PO 0800,1800 07/09/12 Sulfamet/Trimeth Tab 400/80 [Bactrim] 1 ea PO KATHI-OTH-DAY 09/09/14 Doxazosin Mesylate [Cardura] 2 mg PO BEDTIME 08/19/15 Cyanocobalamin Inj [Vitamin B-12 Inj] 1,000 mcg IM MONTHLY 03/12/16 Furosemide [Lasix] 20 - 40 mg PO DAILY PRN 03/12/16 Insulin Aspart [Novolog Flexpen] 0 unit SC QID PRN 03/12/16 hydrALAZINE HCl [HydrALAzine HCl] 75 mg PO TID #60 tab 03/25/16 Insulin Glargine 100U/ml [Lantus] 18 unit SUBCU 0800 08/27/18 Multiple Vitamin [Multi Vitamin] 1 tab PO DAILY 08/27/18 Pancrelipase (Lipase-Protease- [Creon 30276-47819 Unit] 2 cap PO TIDFD 08/27/18 Ursodiol 250 mg PO TID 08/27/18 Prednisone 5 mg PO DAILY 08/28/18 Bifidobacterium Infantis [Align] 4 mg PO DAILY 04/24/19 Buprenorphine HCl-Naloxone HCl [Buprenorphine HCl/Naloxon 2-0.5 mg] 0.5 ea SL Q6H PRN 04/24/19 Calcium Carbonate [Calcium] 500 mg PO DAILY 04/24/19 Escitalopram Oxalate [Lexapro] 20 mg PO DAILY 04/24/19 Lamotrigine [Lamictal] 200 mg PO DAILY 04/24/19 Losartan Potassium 50 mg PO DAILY 04/24/19 Metoprolol Tartrate [Lopressor] 100 mg PO BID 04/24/19 Pancrelipase (Lipase-Protease- [Creon 27527-10966 Unit] 1 cap PO PRN PRN 04/24/19 QUEtiapine FUMARATE [Seroquel] 75 mg PO DAILY@1200 04/24/19 Quetiapine Fumarate [Quetiapine Fumarate ER] 200 mg PO DAILY@1900 04/24/19 Tacrolimus [Prograf] 1 mg PO 0800,1800 04/24/19 Cefdinir [Omnicef] 300 mg PO BID #10 cap 04/29/19 Diphenoxylate/Atropine [Lomotil Tab] 5 mg PO QID PRN #15 tab 04/29/19 Additional Instructions: The patient is a 74-year-old female presenting to the emergency room secondary to bleeding from the procedure site to her left ear. The entire length of the excision was bleeding. Chemical cautery was used followed by Steri-Strips to maintain hemostasis. Patient tolerated this well. Estimated blood loss 2 cc. ER warnings were given.
[2019-06-10 23:14] VITALS: BP 164/98
== END 2019-06-10 23:15 | disposition home or self-care (01) ==
LOC: ER 22:31
DX: L76.22 Postprocedural hemorrhage of skin and subcutaneous tissue following other procedure (principal); I10 Essential (primary) hypertension; E11.9 Type 2 diabetes mellitus without complications; Y83.8 Other surgical procedures as the cause of abnormal reaction of the patient, or of later complication, without mention of misadventure at the time of the procedure; Z85.828 Personal history of other malignant neoplasm of skin; Z85.51 Personal history of malignant neoplasm of bladder; Z86.73 Personal history of transient ischemic attack (TIA), and cerebral infarction without residual deficits; Z79.899 Other long term (current) drug therapy; Z79.4 Long term (current) use of insulin; Z88.8 Allergy status to other drugs, medicaments and biological substances

== ENCOUNTER → 2019-07-11 | Outpatient (CLI) | payer MEDICARE, OTHER ==
--- NOTE | 2019-07-11 13:37 | CT ---
EXAM DESCRIPTION: Lumbar Spine CLINICAL HISTORY: RADICULOPATHY COMPARISON: CT abdomen pelvis August 27, 2018 TECHNIQUE: Non contrast transaxial CT images of the lumbar spine are obtained with coronal and sagittal reconstructed images. This exam was performed according to our departmental dose-optimization program, which includes automated exposure control, adjustment of the mA and/or kV according to patient size and/or use of iterative reconstruction technique . FINDINGS: GENERAL Osseous structures are diffusely osteopenic. Lumbar vertebral body heights are maintained. Normal alignment of the lumbar spine. Multiple hepatic cysts are seen. Cystic lesion with peripheral calcifications in the left upper quadrant of the abdomen probably associated with the tail the pancreas is again seen. Moderate vascular calcifications are identified. Kidneys are not identified and may be surgically absent. Mild colon diverticulosis. Moderate degenerative changes of the sacroiliac joints are seen. L1-2 No significant findings. L2-3 No significant findings. L3-4 Minimal less than 2 mm broad-based annular disc bulge is seen without significant spinal canal stenosis or foraminal encroachment. L4-5 Mild posterior disc space narrowing. 2 mm broad-based annular disc bulge is seen contributing to mild bilateral foraminal encroachment. L5-S1 Mild bilateral facet hypertrophic and degenerative changes are seen without spinal canal stenosis or foraminal encroachment. IMPRESSION: Mild disc degenerative disease and facet arthropathy of the lumbar spine is seen without significant spinal canal stenosis or nerve root impingement. Mild diffuse osteopenia the osseous structures. Findings in the abdomen and pelvis are similar to previous CT scan of the abdomen and pelvis from July 2018. See prior recommendations from that study. Electronically signed by: Juancho Dc MD 07/11/2019 1:35 PM CDT
== END ==
LOC: CT 08:00
PROVIDERS: ATTEND Family Medicine
DX: M54.16 Radiculopathy, lumbar region (principal); M85.88 Other specified disorders of bone density and structure, other site; M51.36 Other intervertebral disc degeneration, lumbar region; M12.9 Arthropathy, unspecified

== ENCOUNTER → 2019-07-12 | Outpatient (CLI) | payer MEDICARE, OTHER | DX: M25.552 Pain in left hip (principal); M54.16 Radiculopathy, lumbar region ==

== ENCOUNTER → 2019-08-22 | Outpatient (CLI) | payer MEDICARE, OTHER | LOC: GMAM 15:32 | PROVIDERS: ATTEND Family Medicine | DX: R06.02 Shortness of breath (principal); E11.9 Type 2 diabetes mellitus without complications; E78.2 Mixed hyperlipidemia; Z79.899 Other long term (current) drug therapy ==

== ENCOUNTER 2019-08-30 10:41 | Emergency (ER) | payer MEDICARE, OTHER ==
[2019-08-30] MEDS ORDERED: predniSONE 20 MG TAB PO ONE (11:03)
--- NOTE | 2019-08-30 11:22 | RAD ---
EXAM: Chest,1 View CLINICAL HISTORY: weakness, recent pna COMPARISON STUDY: Chest x-ray from April 27, 2019 TECHNICAL: A single anteroposterior (AP) view of the chest was performed. FINDINGS: No consolidations, effusions, or edema. Infiltrative densities previously described have resolved. The heart size is not enlarged. AP portable technique causes magnification with some enlargement of the cardiac silhouette. IMPRESSION: NO ACUTE ABNORMALITY. Electronically signed by: Daniel Quezada MD 08/30/2019 11:21 AM CDT
[2019-08-30] MEDS ORDERED: SODIUM CHLORIDE 0.9% 1000ML 1,000 ML IVS ONE (11:54)
[2019-08-30] MEDS ORDERED: MAGNESIUM SULFATE PREMIX 2GM 2 GM in PREMIX BAG 1 BAG IVPB ONE (11:55)
--- NOTE | 2019-08-30 11:59 | RAD ---
EXAM DESCRIPTION: Abdomen Flat Upright CLINICAL HISTORY: 74 years Female, lower abd pain COMPARISON: None. Findings: Three view(s)/radiograph(s) Location: abdomen Nonobstructive bowel gas pattern. Nonspecific gaseous prominence of the left. Osteopenia. Scattered vascular calcifications. Cholecystectomy clips. No suspicious calcification. No acute osseous abnormalities. Soft tissues are unremarkable. Moderate stool volume. Visualized chest is clear. No free air beneath the diaphragm. IMPRESSION: Nonobstructive bowel gas pattern. Electronically signed by: Shemar Sullivan MD 08/30/2019 11:58 AM CDT
[2019-08-30] MEDS ORDERED: MAGNESIUM SULFATE PREMIX 2GM 50 ML IVPB ONE (12:06)
[2019-08-30] MEDS ORDERED: PIPERACILLIN/TAZOBACTAM 3.375 GM in SODIUM CHLORIDE 0.9% 100ML 100 ML IVPB ONE (12:38)
[2019-08-30] MEDS ORDERED: PIPERACILLIN/TAZOBACTAM 3.375 GM VIAL IVPB ONE (13:11)
[2019-08-30] MEDS ORDERED: SODIUM CHLORIDE 0.9% 100ML 100 ML IVPB ONE (13:12)
--- NOTE | 2019-08-30 13:22 | ED.PDOC ---
History of Present Illness - General Chief Complaint: Syncope/Near Syncope Stated Complaint: Weakness, dizziness, fall w/o trauma Time Seen by Provider: 08/30/19 10:45 Source: patient Exam Limitations: no limitations - History of Present Illness Initial Comments: The patient is a 74-year-old female presented emergency room secondary to progressive weakness over the last couple of days. It was worse this morning and she started having some lower abdominal pain around the site of her renal transplant this morning. She has had several falls over the last 3 or 4 weeks since she got out of the hospital for pneumonia. No nausea or vomiting. No fever. She reports good compliance with her medications. No altered mental status. No urinary symptoms. She reports slightly decreased oral intake when compared to normal. No diarrhea. No constipation. No syncope or near syncope. Timing/Duration: unsure Severity: moderate Improving Factors: nothing Worsening Factors: nothing Associated Symptoms: loss of appetite, malaise Allergies/Adverse Reactions: Allergies Metoclopramide [From Reglan] Allergy (Unknown, Verified 08/30/19 11:04) makes her tongue swell Home Medications: Ambulatory Orders Diphenoxylate W/ Atropine [Lomotil] 5 mg PO QID PRN 07/09/12 Mycophenolate Mofetil [Cellcept] 250 mg PO BIDFD 07/09/12 Sulfamet/Trimeth Tab 400/80 [Bactrim] 1 ea PO KATHI-OTH-DAY 09/09/14 Doxazosin Mesylate [Cardura] 2 mg PO BEDTIME 08/19/15 Cyanocobalamin Inj [Vitamin B-12 Inj] 1,000 mcg IM MONTHLY 03/12/16 Furosemide [Lasix] 20 - 40 mg PO DAILY PRN 03/12/16 Insulin Aspart [Novolog Flexpen] 0 unit SC QID PRN 03/12/16 Insulin Glargine 100U/ml [Lantus] 18 unit SUBCU 0800 08/27/18 Pancrelipase (Lipase-Protease- [Creon [id number] Unit] 2 cap PO TIDFD 08/27/18 Ursodiol 250 mg PO TID 08/27/18 Prednisone 5 mg PO DAILY 08/28/18 Calcium Carbonate [Calcium] 500 mg PO BID 04/24/19 Escitalopram Oxalate [Lexapro] 20 mg PO DAILY 04/24/19 Lamotrigine [Lamictal] 200 mg PO DAILY 04/24/19 Metoprolol Tartrate [Lopressor] 100 mg PO BID 04/24/19 QUEtiapine FUMARATE [Seroquel] 100 mg PO DAILY@1200 04/24/19 Quetiapine Fumarate [Quetiapine Fumarate ER] 300 mg PO DAILY@1900 04/24/19 Tacrolimus [Prograf] 1 mg PO 0800,1800 04/24/19 BuPROPion XL [Wellbutrin XL] 150 mg PO DAILY 08/30/19 Megestrol Acetate (Appetite) [Megestrol Acetate] 400 mg PO BID 08/30/19 Sodium Chloride 1 gm PO TIDHS 08/30/19 hydrALAZINE HCl [HydrALAzine HCl] 25 mg PO TID 08/30/19 Review of Systems - Review of Systems Constitutional: States: malaise, weakness EENTM: States: no symptoms reported Respiratory: States: no symptoms reported Cardiology: States: no symptoms reported Gastrointestinal/Abdominal: States: abdominal pain Genitourinary: States: no symptoms reported Musculoskeletal: States: see HPI - The patient has multiple sore areas from the falls over the last couple of weeks Skin: States: no symptoms reported Neurological: States: anxiety Endocrine: States: no symptoms reported All other Systems: No Change from Baseline Past Medical History (General) - Patient Medical History Hx Seizures: No Hx Stroke: No - TIAs Hx Dementia: No Hx Asthma: No Hx of COPD: No Hx Cardiac Disorders: No Hx Congestive Heart Failure: No Hx Pacemaker: No Hx Hypertension: Yes Hx Thyroid Disease: No Hx Diabetes: Yes Hx Gastroesophageal Reflux: No Hx Renal Disease: Yes - hx kidney transfer, 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 Hx Cancer: Yes - bladder, skin Hx of HIV: No Hx MRSA: No Surgical History: cholecystectomy, Hysterectomy - Vaccination History Hx Tetanus, Diphtheria Vaccination: Yes Hx Influenza Vaccination: Yes Hx Pneumococcal Vaccination: Yes Immunizations Up to Date: Yes - Social History Hx Tobacco Use: No Hx Alcohol Use: Yes - Not current Hx Substance Use: No Hx Substance Use Treatment: No Hx Depression: No Hx Physical Abuse: No Hx Emotional Abuse: No - Female History Patient is a Female of Child Bearing Age (10 -59 yrs old): No Patient : No Family Medical History - Family History Father Family History: Unknown Living Status: Hx Family;Other: polycystic kidney disease Physical Exam - Physical Exam General Appearance: Agitated, Alert, Anxious Eye Exam: bilateral normal Ears, Nose, Throat: hearing grossly normal, normal pharynx Neck: non-tender, supple Respiratory: lungs clear, normal breath sounds, no respiratory distress, no accessory muscle use Cardiovascular/Chest: normal peripheral pulses, no edema, tachycardia Peripheral Pulses: radial,right: 2+, radial,left: 2+ Gastrointestinal/Abdominal: other - The patient has lower abdominal discomfort to palpation a little more to the right than central. No definite palpable abnormal mass. Scarring is noted. 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, alert, normal mood/affect, oriented x 3 Skin Exam: normal color - Scarring noted Comments: Vital Signs - 24 hr 08/30/19 08/30/19 08/30/19 10:45 10:56 11:43 Temperature 97.8 F Pulse Rate [ 111 H 111 H 107 H Pulse ox] Respiratory 20 20 Rate Blood Pressure 109/50 113/58 [R brachial] O2 Sat by Pulse 100 97 Oximetry 08/30/19 11:44 Temperature Pulse Rate [ 113 H Pulse ox] Respiratory Rate Blood Pressure 120/60 [R brachial] O2 Sat by Pulse 97 Oximetry Progress - Progress Progress: 08/30/19 13:25 The patient is a 74-year-old female presented emergency room primarily due to progressive weakness and some lower abdominal pain. The patient appears to be septic at this point. White blood cell count is around 24,000 with 15% bands. She is tachycardic and has a significant lactic acidosis. The patient is being given a dose of Zosyn. Blood culture has been performed. Urine appears fairly clear. She is on a liter of IV fluids. The patient is being transferred to [facility] where her renal transplant team can follow her. While this looks like sepsis, I cannot entirely rule out a complication with her transplant as the discomfort is near the transplant site. Transferring for higher level and specialty care. Critical care time spent for sepsis is 40 minutes. ori jett [id number] - Results/Orders Results/Orders: Laboratory Tests 08/30/19 08/30/19 08/30/19 11:25 11:25 11:25 WBC 23.9 H* RBC 3.25 L Hgb 10.2 L Hct 31.7 L MCV 97.7 MCH 31.5 H MCHC 32.2 L RDW 13.3 Plt Count 690 H MPV 8.5 Absolute Neuts (auto) Not Reportable Absolute Lymphs (auto) Not Reportable Absolute Monos (auto) Not Reportable Absolute Eos (auto) Not Reportable Neutrophils % Not Reportable Neutrophils % (Manual) 81.0 H Lymphocytes % Not Reportable Lymphocytes % (Manual) 4.0 Monocytes % Not Reportable Monocytes % (Manual) 0.0 Eosinophils % Not Reportable Basophils % Not Reportable Band Neutrophils 15.0 H* Eosinophils 0.0 Basophils 0.0 Platelet Estimate Increased PT 11.6 H INR 1.17 H PTT (SP) 21.6 L Sodium 131 L Potassium 4.4 Chloride 101 Carbon Dioxide 18 L Anion Gap 16.4 BUN 51 H Creatinine 2.07 H BUN/Creatinine Ratio 24.6 H POC Glucose Random Glucose 141 H Serum Osmolality 278.7 Lactic Acid Calcium 9.0 Magnesium 1.6 L Total Bilirubin 0.7 AST 21 ALT 13 Alkaline Phosphatase 73 Creatine Kinase 25 L CK-MB (CK-2) 1.5 CK-MB (CK-2) % Not Reportable Troponin I 0.04 B-Natriuretic Peptide 176.0 H Serum Total Protein 7.3 Albumin 3.8 Globulin 3.5 Albumin/Globulin Ratio 1.1 Amylase 124 H Lipase 33 Urine Color Urine Appearance Urine pH Ur Specific [place] Urine Protein Urine Glucose (UA) Urine Ketones Urine Blood Urine Nitrite Urine Bilirubin Urine Urobilinogen Ur Leukocyte Esterase Urine RBC Urine WBC Ur Epithelial Cells Urine Bacteria 08/30/19 08/30/19 08/30/19 11:25 11:25 12:22 WBC RBC Hgb Hct MCV MCH MCHC RDW Plt Count MPV Absolute Neuts (auto) Absolute Lymphs (auto) Absolute Monos (auto) Absolute Eos (auto) Neutrophils % Neutrophils % (Manual) Lymphocytes % Lymphocytes % (Manual) Monocytes % Monocytes % (Manual) Eosinophils % Basophils % Band Neutrophils Eosinophils Basophils Platelet Estimate PT INR PTT (SP) Sodium Potassium Chloride Carbon Dioxide Anion Gap BUN Creatinine BUN/Creatinine Ratio POC Glucose 145 H Random Glucose Serum Osmolality Lactic Acid 3.7 H* Calcium Magnesium Total Bilirubin AST ALT Alkaline Phosphatase Creatine Kinase CK-MB (CK-2) CK-MB (CK-2) % Troponin I B-Natriuretic Peptide Serum Total Protein Albumin Globulin Albumin/Globulin Ratio Amylase Lipase Urine Color Yellow Urine Appearance Clear Urine pH 5.5 Ur Specific [place] 1.015 Urine Protein 30 Urine Glucose (UA) Negative Urine Ketones Negative Urine Blood Negative Urine Nitrite Negative Urine Bilirubin Negative Urine Urobilinogen 0.2 Ur Leukocyte Esterase Negative Urine RBC 0 Urine WBC 0 Ur Epithelial Cells 20-30 Urine Bacteria Rare EKG shows sinus tachycardia 108 bpm. Mild right axis deviation. Borderline R wave progression. No definitive ST segment or T wave changes indicative of acute ischemia. Borderline prolonged QT interval. Chest x-ray does show significant improvement from her previous. No obvious acute pathology. 2 view abdomen appears largely benign. There is moderate stool volume. Departure - Departure Clinical Impression: Immunocompromised state Sepsis Qualifiers: Sepsis type: sepsis due to unspecified organism Sepsis acute organ dysfunction status: unspecified Qualified Code(s): A41.9 - Sepsis, unspecified organism Disposition: Transfer to Hospital Departure Forms: ED Discharge - Pt. Copy, Patient Portal Self Enrollment Referrals: Chapo Jett MD [Primary Care Provider] - 1-2 Weeks Home Medications: Ambulatory Orders Diphenoxylate W/ Atropine [Lomotil] 5 mg PO QID PRN 07/09/12 Mycophenolate Mofetil [Cellcept] 250 mg PO BIDFD 07/09/12 Sulfamet/Trimeth Tab 400/80 [Bactrim] 1 ea PO KATHI-OTH-DAY 09/09/14 Doxazosin Mesylate [Cardura] 2 mg PO BEDTIME 08/19/15 Cyanocobalamin Inj [Vitamin B-12 Inj] 1,000 mcg IM MONTHLY 03/12/16 Furosemide [Lasix] 20 - 40 mg PO DAILY PRN 03/12/16 Insulin Aspart [Novolog Flexpen] 0 unit SC QID PRN 03/12/16 Insulin Glargine 100U/ml [Lantus] 18 unit SUBCU 0800 08/27/18 Pancrelipase (Lipase-Protease- [Creon 06507-04972 Unit] 2 cap PO TIDFD 08/27/18 Ursodiol 250 mg PO TID 08/27/18 Prednisone 5 mg PO DAILY 08/28/18 Calcium Carbonate [Calcium] 500 mg PO BID 04/24/19 Escitalopram Oxalate [Lexapro] 20 mg PO DAILY 04/24/19 Lamotrigine [Lamictal] 200 mg PO DAILY 04/24/19 Metoprolol Tartrate [Lopressor] 100 mg PO BID 04/24/19 QUEtiapine FUMARATE [Seroquel] 100 mg PO DAILY@1200 04/24/19 Quetiapine Fumarate [Quetiapine Fumarate ER] 300 mg PO DAILY@1900 04/24/19 Tacrolimus [Prograf] 1 mg PO 0800,1800 04/24/19 BuPROPion XL [Wellbutrin XL] 150 mg PO DAILY 08/30/19 Megestrol Acetate (Appetite) [Megestrol Acetate] 400 mg PO BID 08/30/19 Sodium Chloride 1 gm PO TIDHS 08/30/19 hydrALAZINE HCl [HydrALAzine HCl] 25 mg PO TID 08/30/19 Transfer to Outside Facility - Transfer Information Decision to Transfer Date: 08/30/19 Decision to Transfer Time: 13:27 Reason for Transfer: required specialist not available Accepting Provider:: dr ornelas Accepting Facility: [facility]
[2019-08-30 13:38] VITALS: TEMP 97.2; O2SAT 99
[2019-08-30 16:08] VITALS: BP 116/80
== END 2019-08-30 14:10 | disposition short-term general hospital (02) ==
LOC: ER 10:41
DX: A41.9 Sepsis, unspecified organism (principal); R53.1 Weakness; R10.30 Lower abdominal pain, unspecified; R55 Syncope and collapse; R00.0 Tachycardia, unspecified; I10 Essential (primary) hypertension; E11.9 Type 2 diabetes mellitus without complications; Z79.4 Long term (current) use of insulin; Z79.899 Other long term (current) drug therapy
CPT/HCPCS: 71045; 74019; 80053; 81001; 82150; 82550; 82553; 82948; 83605; 83690; 83735; 83880; 84484; 85025; 85610; 85730; 87040; 93005; J2543; J3475; J7030; J7050; J7512

== ENCOUNTER → 2019-10-31 | Outpatient (CLI) | payer MEDICARE, OTHER | LOC: YCHH 11:17 | PROVIDERS: ATTEND Family Medicine | DX: N18.9 Chronic kidney disease, unspecified (principal); K85.90 Acute pancreatitis without necrosis or infection, unspecified ==

== ENCOUNTER 2019-11-23 13:06 | Emergency (ER) | payer MEDICARE, OTHER ==
[2019-11-23] MEDS ORDERED: SODIUM CHLORIDE 0.9% 1000ML 500 ML IVS ONE ×2 (13:47→14:29)
--- NOTE | 2019-11-23 14:26 | ED.PDOC ---
History of Present Illness - General Chief Complaint: Diabetic Complaint Stated Complaint: Blood sugar low, weakness, confusion Time Seen by Provider: 11/23/19 13:46 Additional Information: Patient is a 74-year-old female who presents to the ED with chief complaint of a hypo-glycemic episode. Patient is an insulin-dependent diabetic and this morning her inadvertently mixed up her long-acting and short acting insulin and gave her the wrong insulin. Patient was supposed to take her Lantus but instead patient was given short acting insulin. They monitored patient's blood sugar and noted it to be slowly falling, and when it hit 41 they decided to come to the ED. Patient denies any specific symptoms other than generalized weakness. However, patient was recently admitted to [facility] and discharged 4 days ago following work-up for nausea and vomiting. Patient tells me they found no problems and instructed her to simply eat smaller meals more frequently. Patient has a history of renal insufficiency with kidney transplant and she has had her bilateral pokagon kidneys removed. Patient indicates that she has good renal function in general. Patient denies nausea, vomiting, fever, chills, chest pain, shortness of breath, abdominal pain, dizziness. Patient tells me she is adamant that she does not want to be admitted to the hospital but wants to be able to go home once her sugar is stable. - History of Present Illness Allergies/Adverse Reactions: Allergies Metoclopramide [From Reglan] Allergy (Unknown, Verified 11/23/19 13:45) makes her tongue swell Home Medications: Ambulatory Orders Diphenoxylate W/ Atropine [Lomotil] 5 mg PO QID PRN 07/09/12 Mycophenolate Mofetil [Cellcept] 250 mg PO BIDFD 07/09/12 Sulfamet/Trimeth Tab 400/80 [Bactrim] 1 ea PO KATHI-OTH-DAY 09/09/14 Doxazosin Mesylate [Cardura] 2 mg PO BEDTIME 08/19/15 Cyanocobalamin Inj [Vitamin B-12 Inj] 1,000 mcg IM MONTHLY 03/12/16 Furosemide [Lasix] 20 - 40 mg PO DAILY PRN 03/12/16 Insulin Aspart [Novolog Flexpen] 0 unit SC QID PRN 03/12/16 Insulin Glargine 100U/ml [Lantus] 18 unit SUBCU 0800 08/27/18 Pancrelipase (Lipase-Protease- [Creon 49863-61631 Unit] 2 cap PO TIDFD 08/27/18 Ursodiol 250 mg PO TID 08/27/18 Prednisone 5 mg PO DAILY 08/28/18 Calcium Carbonate [Calcium] 500 mg PO BID 04/24/19 Escitalopram Oxalate [Lexapro] 20 mg PO DAILY 04/24/19 Lamotrigine [Lamictal] 200 mg PO DAILY 04/24/19 Metoprolol Tartrate [Lopressor] 100 mg PO BID 04/24/19 QUEtiapine FUMARATE [Seroquel] 100 mg PO DAILY@1200 04/24/19 Quetiapine Fumarate [Quetiapine Fumarate ER] 300 mg PO DAILY@1900 04/24/19 Tacrolimus [Prograf] 1 mg PO 0800,1800 04/24/19 BuPROPion XL [Wellbutrin XL] 150 mg PO DAILY 08/30/19 Megestrol Acetate (Appetite) [Megestrol Acetate] 400 mg PO BID 08/30/19 Sodium Chloride 1 gm PO TIDHS 08/30/19 hydrALAZINE HCl [HydrALAzine HCl] 25 mg PO TID 08/30/19 Review of Systems - Review of Systems Constitutional: States: weakness. Denies: chills, fever EENTM: States: no symptoms reported Respiratory: States: no symptoms reported. Denies: cough, short of breath Cardiology: States: no symptoms reported. Denies: chest pain, palpitations Gastrointestinal/Abdominal: Denies: nausea, vomiting Genitourinary: Denies: dysuria Musculoskeletal: States: no symptoms reported. Denies: muscle pain Skin: States: no symptoms reported. Denies: rash Neurological: States: no symptoms reported All other Systems: Reviewed and Negative Past Medical History (General) - Patient Medical History Hx Seizures: No Hx Stroke: No - TIAs Hx Dementia: No Hx Asthma: No Hx of COPD: No Hx Cardiac Disorders: No Hx Congestive Heart Failure: No Hx Pacemaker: No Hx Hypertension: Yes Hx Thyroid Disease: No Hx Diabetes: Yes Hx Gastroesophageal Reflux: No Hx Renal Disease: Yes - hx kidney transfer, 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 Hx Cancer: Yes - bladder, skin Hx of HIV: No Hx Hepatitis C: No Hx MRSA: No Surgical History: cholecystectomy, Hysterectomy - Vaccination History Hx Tetanus, Diphtheria Vaccination: Yes Hx Influenza Vaccination: Yes Hx Pneumococcal Vaccination: Yes - Social History Hx Tobacco Use: No Hx Alcohol Use: Yes - Not current Hx Substance Use: No Hx Substance Use Treatment: No Hx Depression: No Hx Physical Abuse: No Hx Emotional Abuse: No - Female History Patient : No Family Medical History - Family History Father Family History: Unknown Living Status: Hx Family;Other: polycystic kidney disease Physical Exam - Physical Exam General Appearance: Alert, Comfortable, Frail, No apparent distress Neck: supple Respiratory: chest non-tender, lungs clear, normal breath sounds, no respiratory distress, no accessory muscle use Cardiovascular/Chest: normal peripheral pulses, regular rate, rhythm, no edema, no gallop, no JVD, no murmur Gastrointestinal/Abdominal: normal bowel sounds, non tender, soft, no organomegaly Back Exam: normal inspection Extremity: normal range of motion, non-tender, normal inspection, no pedal edema Neurologic: quill skinner II-XII nml as tested, no motor/sensory deficits, alert, normal mood/affect, oriented x 3 Skin Exam: normal color, warm/dry Progress - Progress Progress: 11/23/19 14:28 Differential diagnosis includes but is not limited to insulin reaction, infection, UTI, electrolyte disorder. 11/23/19 14:31 EKG: Normal sinus rhythm, rate 68, normal axis, normal QRS, nonspecific ST and T wave changes. Negative STEMI. EKG read by Mayank Alford MD. 11/23/19 17:19 Patient has eaten in the ED and her blood sugar has risen from her presentation values and has remained stable and acceptable. Patient feels well and requests discharge home. Vital signs stable, patient is NAD and looks clinically well and I believe is safe for discharge with outpatient follow-up. Follow-up instructions, discharge instructions and return to ED precautions discussed with patient. Patient voices understanding and willingness to comply with instructions. All laboratory and radiographic results have been discussed with the patient, and all questions answered. Patient is happy with plan. Departure - Departure Clinical Impression: Hypoglycemia due to insulin Time of Disposition: 17:21 Disposition: Discharge to Home or Self Care Condition: Fair Departure Forms: ED Discharge - Pt. Copy, Patient Portal Self Enrollment Instructions: DI for Diabetes Type 2, Low Blood Sugar in People With Diabetes Diet: diabetic diet Referrals: Chapo Cabrera MD [Primary Care Provider] - 1-5 Days Home Medications: Ambulatory Orders Diphenoxylate W/ Atropine [Lomotil] 5 mg PO QID PRN 07/09/12 Mycophenolate Mofetil [Cellcept] 250 mg PO BIDFD 07/09/12 Sulfamet/Trimeth Tab 400/80 [Bactrim] 1 ea PO KATHI-OTH-DAY 09/09/14 Doxazosin Mesylate [Cardura] 2 mg PO BEDTIME 08/19/15 Cyanocobalamin Inj [Vitamin B-12 Inj] 1,000 mcg IM MONTHLY 03/12/16 Furosemide [Lasix] 20 - 40 mg PO DAILY PRN 03/12/16 Insulin Aspart [Novolog Flexpen] 0 unit SC QID PRN 03/12/16 Insulin Glargine 100U/ml [Lantus] 18 unit SUBCU 0800 08/27/18 Pancrelipase (Lipase-Protease- [Creon [id number] Unit] 2 cap PO TIDFD 08/27/18 Ursodiol 250 mg PO TID 08/27/18 Prednisone 5 mg PO DAILY 08/28/18 Calcium Carbonate [Calcium] 500 mg PO BID 04/24/19 Escitalopram Oxalate [Lexapro] 20 mg PO DAILY 04/24/19 Lamotrigine [Lamictal] 200 mg PO DAILY 04/24/19 Metoprolol Tartrate [Lopressor] 100 mg PO BID 04/24/19 QUEtiapine FUMARATE [Seroquel] 100 mg PO DAILY@1200 04/24/19 Quetiapine Fumarate [Quetiapine Fumarate ER] 300 mg PO DAILY@1900 04/24/19 Tacrolimus [Prograf] 1 mg PO 0800,1800 04/24/19 BuPROPion XL [Wellbutrin XL] 150 mg PO DAILY 08/30/19 Megestrol Acetate (Appetite) [Megestrol Acetate] 400 mg PO BID 08/30/19 Sodium Chloride 1 gm PO TIDHS 08/30/19 hydrALAZINE HCl [HydrALAzine HCl] 25 mg PO TID 08/30/19
[2019-11-23] MEDS ORDERED: DEXTROSE 50% 25 GM/50 ML SYG IV ONE (14:29)
--- NOTE | 2019-11-23 15:07 | RAD ---
PROCEDURE: XR Chest, 1 View CLINICAL INDICATION: The patient is 74 years old and is Female; weakness MAIN TECHNIQUE: Frontal view of the chest. COMPARISON: 08/30/2019 FINDINGS: LUNGS: There is patchy bibasilar atelectasis noted. PLEURAL SPACE: There are new bilateral pleural effusions, moderate on the RIGHT and small on the LEFT. HEART: The heart size is normal. MEDIASTINUM: The mediastinal contour is normal. BONES/JOINTS: No acute abnormality noted. VASCULATURE: Pulmonary vascularity is not engorged. IMPRESSION: There are new bilateral pleural effusions, moderate on the RIGHT and small on the LEFT. Etiology is unknown. Electronically signed by: Lc Barrow MD 11/23/2019 3:06 PM CDT
[2019-11-23 18:20] VITALS: BP 114/85; TEMP 97.6; O2SAT 97
== END 2019-11-23 17:40 | disposition home or self-care (01) ==
LOC: ER 13:06
DX: T38.3X1A Poisoning by insulin and oral hypoglycemic [antidiabetic] drugs, accidental (unintentional), initial encounter (principal); E11.649 Type 2 diabetes mellitus with hypoglycemia without coma; I10 Essential (primary) hypertension; Z85.828 Personal history of other malignant neoplasm of skin; Z94.0 Kidney transplant status; Z79.4 Long term (current) use of insulin; Z79.899 Other long term (current) drug therapy; Z86.73 Personal history of transient ischemic attack (TIA), and cerebral infarction without residual deficits; Z88.8 Allergy status to other drugs, medicaments and biological substances
CPT/HCPCS: 36415; 36416; 71045; 80053; 82948; 83605; 84484; 85025; 93005; J7030; J7799

== ENCOUNTER → 2019-11-25 | Outpatient (CLI) | payer MEDICARE, OTHER | LOC: YCHH 15:21 | PROVIDERS: ATTEND Family Medicine | DX: E11.9 Type 2 diabetes mellitus without complications (principal); E78.5 Hyperlipidemia, unspecified ==

== ENCOUNTER 2019-12-09 11:17 | Emergency (ER) | payer MEDICARE, OTHER ==
[2019-12-09] MEDS ORDERED: ONDANSETRON INJ 4 MG/2 ML VIAL IV ONE ×2 (11:28→21:37)
[2019-12-09] MEDS ORDERED: SODIUM CHLORIDE 0.9% (FLUSH) 10 ML SYG IV PRN (11:28)
[2019-12-09] MEDS ORDERED: SODIUM CHLORIDE 0.9% 1000ML 1,000 ML IVS ONE (11:28)
--- NOTE | 2019-12-09 11:29 | ED.PDOC ---
History of Present Illness - General Source: patient - History of Present Illness Initial Comments: 74 yo female with PMH of HTN, DM2, gastroparesis, s/p kidney transplant (2004), seizure disorder, depression, anxiety, chronic back pain who presents with cc of nausea and vomiting. Reports she has been nauseous for several days, onset of dark brown emesis began last night, reports about 9 episodes since last night. Symptoms were worsened by trying to eat some soup and drink Coke yesterday evening. She has not tried any home medications for relief. Currently she reports nausea is actually resolved. She states that her PCP recommended that she come to the ED to be evaluated since she has not had a bowel movement in more than 2 weeks. She does report that she is passing gas, however. Denies any abdominal distention, abdominal pain, constipation, diarrhea, urinary s ymptoms, fevers, chills, chest pain, cough, dyspnea. She was recently admitted to the hospital at [facility] for diabetic gastroparesis. Her PCP is Dr. Cabrera and her dry cleaning counter clerk is Dr. Blake. She is allergic to Reglan, which causes tongue swelling. She has chronic pain but states she has not been taking her home hydrocodone recently due to her abdominal issues. Reports she took Lantus 10 units this morning as usual and home D stick was 96. <Adalberto Boyce - Last Filed: 12/10/19 07:18> <Mayank Alford - Last Filed: 12/10/19 21:41> - General Time Seen by Provider: 12/09/19 11:26 - History of Present Illness Allergies/Adverse Reactions: Allergies Metoclopramide [From Reglan] Allergy (Unknown, Verified 11/23/19 13:45) makes her tongue swell Home Medications: Ambulatory Orders Diphenoxylate W/ Atropine [Lomotil] 5 mg PO QID PRN 07/09/12 Mycophenolate Mofetil [Cellcept] 250 mg PO BIDFD 07/09/12 Sulfamet/Trimeth Tab 400/80 [Bactrim] 1 ea PO KATHI-OTH-DAY 09/09/14 Doxazosin Mesylate [Cardura] 2 mg PO BEDTIME 08/19/15 Cyanocobalamin Inj [Vitamin B-12 Inj] 1,000 mcg IM MONTHLY 03/12/16 Furosemide [Lasix] 20 - 40 mg PO DAILY PRN 03/12/16 Insulin Aspart [Novolog Flexpen] 0 unit SC QID PRN 03/12/16 Insulin Glargine 100U/ml [Lantus] 13 unit SUBCU 0800 08/27/18 Pancrelipase (Lipase-Protease- [Creon [id number] Unit] 2 cap PO TIDFD 08/27/18 Ursodiol 300 mg PO TID 08/27/18 Prednisone 5 mg PO DAILY 08/28/18 Calcium Carbonate [Calcium] 500 mg PO BID 04/24/19 Escitalopram Oxalate [Lexapro] 20 mg PO DAILY 04/24/19 Lamotrigine [Lamictal] 200 mg PO DAILY 04/24/19 Metoprolol Tartrate [Lopressor] 100 mg PO BID 04/24/19 QUEtiapine FUMARATE [Seroquel] 100 mg PO DAILY@1200 04/24/19 Quetiapine Fumarate [Quetiapine Fumarate ER] 300 mg PO DAILY@1900 04/24/19 Tacrolimus [Prograf] 1 mg PO 0800,1800 04/24/19 BuPROPion XL [Wellbutrin XL] 150 mg PO DAILY 08/30/19 Megestrol Acetate (Appetite) [Megestrol Acetate] 400 mg PO BID 08/30/19 Sodium Chloride 1 gm PO TIDHS 08/30/19 hydrALAZINE HCl [HydrALAzine HCl] 50 mg PO TID 08/30/19 Amlodipine Besylate 10 mg PO DAILY 12/09/19 Buprenorphine HCl-Naloxone HCl [Buprenorphine HCl/Naloxon 2-0.5 mg] 1 sub SL Q12H 12/09/19 levETIRAcetam SUSPENSION [Keppra] 750 mg PO BID 12/09/19 Review of Systems - Review of Systems Review of Systems: 12/09/19 11:49 as per HPI All other Systems: Reviewed and Negative <Adalberto Boyce - Last Filed: 12/10/19 07:18> Past Medical History (General) - Patient Medical History Hx Seizures: No Hx Stroke: No - TIAs Hx Dementia: No Hx Asthma: No Hx of COPD: No Hx Cardiac Disorders: No Hx Congestive Heart Failure: No Hx Pacemaker: No Hx Hypertension: Yes Hx Thyroid Disease: No Hx Diabetes: Yes Hx Gastroesophageal Reflux: No Hx Renal Disease: Yes - hx kidney transfer, 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 Hx Cancer: Yes - bladder, skin Hx of HIV: No Hx Hepatitis C: No Hx MRSA: No - Vaccination History Hx Tetanus, Diphtheria Vaccination: Yes Hx Influenza Vaccination: Yes Hx Pneumococcal Vaccination: Yes - Social History Hx Tobacco Use: No Hx Alcohol Use: Yes - Not current Hx Substance Use: No Hx Substance Use Treatment: No Hx Depression: No Hx Physical Abuse: No Hx Emotional Abuse: No - Female History Patient : No <Adalberto Boyce - Last Filed: 12/10/19 07:18> Family Medical History - Family History Father Family History: Unknown Living Status: Hx Family;Other: polycystic kidney disease <Adalberto Boyce - Last Filed: 12/10/19 07:18> Physical Exam - Physical Exam General Appearance: Alert, Comfortable, No apparent distress Eye Exam: bilateral normal Ears, Nose, Throat: normal ENT inspection, normal pharynx Neck: non-tender, full range of motion, supple, normal inspection Respiratory: lungs clear, normal breath sounds, no respiratory distress, no accessory muscle use Cardiovascular/Chest: normal peripheral pulses, regular rate, rhythm, no edema, no gallop, no JVD, no murmur Peripheral Pulses: radial,right: 2+, radial,left: 2+ Gastrointestinal/Abdominal: non tender, soft, abnormal bowel sounds - diminished throughout, mass - approx 8x8 cm mass to RLQ - suspect kidney transplant, other - diastis recti noted, non-distended abdomen Back Exam: normal inspection, no CVA tenderness Extremity: normal range of motion, non-tender, normal inspection, no pedal edema, no calf tenderness, normal capillary refill Neurologic: traffic operator II-XII nml as tested, no motor/sensory deficits, alert, normal mood/affect, oriented x 3 Skin Exam: normal color, warm/dry <Adalberto Boyce - Last Filed: 12/10/19 07:18> Progress - Progress Progress: 12/09/19 11:50 N/V -consider diabetic gastroparesis, small bowel obstruction, ileus, gastroenteritis, gastritis, colitis, constipation, iatrogenic, other -pt stable -obtain GI work-up, cardiac work-up -place PIV, 1 L NS bolus, Zofran 4 mg IV 12/09/19 14:44 -CT A/P read called back by radiology - concern for possible metastatic cancer of unknown primary - several BL pulmonary nodules, esophageal lymph nodes, osteoblastic lesions in the bony vertebrae and sclerotic lesions in the pelvis. There are 2 complex cystic pancreatic lesions with calcifications which are larger now than previous study 07/2019. There is also new-onset ascites, which may be 2/2 malignancy. No evidence of bowel obstruction. Otherwise numerous large cysts throughout the liver. Also evidence of loculated pleural effusion on the right side. -Spoke with Dr. Luu who is coming to see the patient in the ED. -Spoke with RN (Lou) of Dr. Smith of [facility] in [place]. She states pt is being referred to GI specialist at [facility] for a POEM procedure for her chronic nausea & vomiting. She also has hx of gastroparesis. She asked for us to fax the CT report so Dr. Smith can review. -Given loculated effusion and leukocytosis, concern for possible empyema/infection/pneumonia RLL lung. Will draw blood cultures and begin Zosyn 3.375 g IV. Pt remains stable. Anticipate transfer for hem/onc consultation and/or GI/surgical consultation. 12/09/19 17:42 -Dr. Luu evaluated pt in the ED and reviewed her CT scan. He agrees - high degree of concern of metastatic cancer, unknown primary. He is highly concerned for her pancreatic masses, which appear complex and enlarging with overlying omental caking and enlarged lymph nodes. He reports also concerns for dilated fluid-filled stomach which may be indicative of partial gastric outlet obstruction. Agrees no evidence of bowel obstruction at this time but copious stool in the bowel. Feels pt would greatly benefit from oncology consultation. -Spoke with [facility] hospitalist, Dr. Chamberlain, who is familiar with the patient. He tells me during her previous admission she was discovered to also have a lung mass. Concern for cancer was brought up with the patient but she reportedly declined further investigation at that time. I discussed with him my concern for the new R-sided loculated pleural effusion as well as the CT findings concerning for rapidly spreading metastatic cancer. Pt expresses desire for further work-up and oncology consultation at this time. Acutely she also likely need diagnostic drainage of the loculated pleural effusion and further hospital observation for this issue. We have begun her on Zosyn 3.375 g IV in the ED. Remains stable. Pt is accepted for transfer to med/surg bed th ere. Will go via ground EMS. 12/10/19 02:20 -Pt remains stable, still awaiting hospital bed at [facility]. 12/10/19 07:18 -Pt remains stable, still awaiting hospital bed at [facility] bar[facility] pt was accepted for transfer >14 hours ago. Given her recent admissions there and specialists who know her well there in this very complicated patient, feel she would be best served there despite the prolonged delay. Nurses continue to call and check for bed availability. Pt remains stable. Hand off given to Dr. Alford at shift change who will assume care at this time. Adalberto Boyce MD Billing #[id number] 12/09/19 11:28 IV Care:Saline Lock per Protoc QSHIFT Sodium Chloride 0.9% (Flush) [Saline Flush Syringe] 10 ml IV PRN PRN 12/09/19 11:30 EKG STAT 12/09/19 12:25 Hold Metformin x 48Hrs [id number] 12/09/19 14:31 BLOOD CULTURE Stat 12/09/19 17:40 RESPIRATORY PANEL 2 Stat Laboratory Results - last 24 hr 12/09/19 12/09/19 12/09/19 11:40 11:40 11:40 WBC 12.9 H RBC 3.30 L Hgb 10.1 L Hct 30.2 L MCV 91.5 MCH 30.6 MCHC 33.5 RDW 13.1 Plt Count 445 H MPV 9.4 Absolute Neuts (auto) 7.00 H Absolute Lymphs (auto) 4.10 H Absolute Monos (auto) 1.40 H Absolute Eos (auto) 0.30 Absolute Basos (auto) 0.10 Neutrophils % 54.0 Lymphocytes % 32.1 Monocytes % 11.2 H Eosinophils % 2.2 Basophils % 0.5 Sodium 130 L Potassium 3.9 Chloride 96 L Carbon Dioxide 24 Anion Gap 13.9 BUN 25 H Creatinine 0.89 BUN/Creatinine Ratio 28.1 H Random Glucose 111 H Serum Osmolality 265.9 L Lactic Acid Calcium 9.5 Total Bilirubin 0.5 Direct Bilirubin 0.1 Indirect Bilirubin 0.4 AST 15 ALT < 8 L Alkaline Phosphatase 92 Creatine Kinase 13 L Troponin I < 0.02 Serum Total Protein 6.5 Albumin 3.4 Amylase 42 Lipase 26 Urine Color Urine Appearance Urine pH Ur Specific Hitchcock Urine Protein Urine Glucose (UA) Urine Ketones Urine Blood Urine Nitrite Urine Bilirubin Urine Urobilinogen Ur Leukocyte Esterase Urine RBC Urine WBC Ur Epithelial Cells Urine Bacteria 12/09/19 12/09/19 11:40 14:05 WBC RBC Hgb Hct MCV MCH MCHC RDW Plt Count MPV Absolute Neuts (auto) Absolute Lymphs (auto) Absolute Monos (auto) Absolute Eos (auto) Absolute Basos (auto) Neutrophils % Lymphocytes % Monocytes % Eosinophils % Basophils % Sodium Potassium Chloride Carbon Dioxide Anion Gap BUN Creatinine BUN/Creatinine Ratio Random Glucose Serum Osmolality Lactic Acid 1.0 Calcium Total Bilirubin Direct Bilirubin Indirect Bilirubin AST ALT Alkaline Phosphatase Creatine Kinase Troponin I Serum Total Protein Albumin Amylase Lipase Urine Color Yellow Urine Appearance Clear Urine pH 6.0 Ur Specific Hitchcock <= 1.005 Urine Protein Negative Urine Glucose (UA) Negative Urine Ketones Negative Urine Blood Negative Urine Nitrite Negative Urine Bilirubin Negative Urine Urobilinogen 0.2 Ur Leukocyte Esterase Negative Urine RBC 0-1 Urine WBC 0-1 Ur Epithelial Cells 0-1 Urine Bacteria 0 - EKG/XRAY/CT EKG: Sinus - NSR, HR 80, no ST elevs or q waves noted, slight R axis deviation, intervals normal, appears largely unchanged from 11/23/19 EKG XRAY: chest - moderate right-sided pleural effusion per my read - Additional EKG/XRAY/Consults XRAY #2: abdomen - nonobstructive bowel gas pattern per my read. Large stool volume noted in ascending and descending colon <Adalberto Boyce - Last Filed: 12/10/19 07:18> - Progress Progress: 12/10/19 07:29 Mayank Alford MD note: Patient seen and evaluated. She is comfortable and stable and her nausea presently is controlled. Patient is awaiting bed at [facility] where she is accepted as a transfer to inpatient. They tell us they expect a bed to open up in the late morning. 12/10/19 13:47 Patient has been in the ED now for over 26 hours and remains stable. She is taking sips of water but is essentially n.p.o. and is not vomiting at present. I have personally spoken with the clubhouse attendant at [facility] and she tells me that while the patient is accepted for admission to the hospital there are no hospital beds available in the ED is at capacity holding multiple patients and they are unable to accept patient in ED to ED transfer. They do indicate that patient is a priority transfer and that as soon as a bed opens up they will accept the patient. I discussed this with the patient and s he is adamant that she will not be transferred to any facility other than to [facility]. At patient's request we will continue to hold in the ED until we received further notification from [facility]. Patient has on her person her home medications and is taking them as scheduled including all of her transplant medications. I will continue with IV antibiotics in the ED for patient's leukocytosis and loculated pleural effusion and will place on a D5 drip for maintenance fluids. 12/10/19 21:40 [facility] has identified a bed for patient and EMS is presently in the ED transferring patient now. Patient is comfortable and her vital signs are stable.. <Mayank Alford - Last Filed: 12/10/19 21:41> Departure - Departure Time of Disposition: 17:42 <Adalberto Boyce - Last Filed: 12/10/19 07:18> <Mayank Alford - Last Filed: 12/10/19 21:41> - Departure Clinical Impression: Loculated pleural effusion, Pancreatic mass, Partial gastric outlet obstruction, Intractable nausea and vomiting Disposition: Transfer to Hospital Condition: Fair Referrals: Chapo Cabrera MD [Primary Care Provider] - 1-2 Weeks Home Medications: Ambulatory Orders Diphenoxylate W/ Atropine [Lomotil] 5 mg PO QID PRN 07/09/12 Mycophenolate Mofetil [Cellcept] 250 mg PO BIDFD 07/09/12 Sulfamet/Trimeth Tab 400/80 [Bactrim] 1 ea PO KATHI-OTH-DAY 09/09/14 Doxazosin Mesylate [Cardura] 2 mg PO BEDTIME 08/19/15 Cyanocobalamin Inj [Vitamin B-12 Inj] 1,000 mcg IM MONTHLY 03/12/16 Furosemide [Lasix] 20 - 40 mg PO DAILY PRN 03/12/16 Insulin Aspart [Novolog Flexpen] 0 unit SC QID PRN 03/12/16 Insulin Glargine 100U/ml [Lantus] 13 unit SUBCU 0800 08/27/18 Pancrelipase (Lipase-Protease- [Creon [id number] Unit] 2 cap PO TIDFD 08/27/18 Ursodiol 300 mg PO TID 08/27/18 Prednisone 5 mg PO DAILY 08/28/18 Calcium Carbonate [Calcium] 500 mg PO BID 04/24/19 Escitalopram Oxalate [Lexapro] 20 mg PO DAILY 04/24/19 Lamotrigine [Lamictal] 200 mg PO DAILY 04/24/19 Metoprolol Tartrate [Lopressor] 100 mg PO BID 04/24/19 QUEtiapine FUMARATE [Seroquel] 100 mg PO DAILY@1200 04/24/19 Quetiapine Fumarate [Quetiapine Fumarate ER] 300 mg PO DAILY@1900 04/24/19 Tacrolimus [Prograf] 1 mg PO 0800,1800 04/24/19 BuPROPion XL [Wellbutrin XL] 150 mg PO DAILY 08/30/19 Megestrol Acetate (Appetite) [Megestrol Acetate] 400 mg PO BID 08/30/19 Sodium Chloride 1 gm PO TIDHS 08/30/19 hydrALAZINE HCl [HydrALAzine HCl] 50 mg PO TID 08/30/19 Amlodipine Besylate 10 mg PO DAILY 12/09/19 Buprenorphine HCl-Naloxone HCl [Buprenorphine HCl/Naloxon 2-0.5 mg] 1 sub SL Q12H 12/09/19 levETIRAcetam SUSPENSION [Keppra] 750 mg PO BID 12/09/19 Transfer to Outside Facility - Transfer Information Decision to Transfer Date: 12/09/19 Decision to Transfer Time: 17:41 Reason for Transfer: required specialist not available - interventional radiology, oncology, gastroenterology Accepting Provider:: [facility] Chamberlain [facility] Last Filed: 12/10/19 07:18>
--- NOTE | 2019-12-09 12:33 | RAD ---
EXAM DESCRIPTION: Abdomen 1 View CLINICAL HISTORY: 74 years Female, nausea, vomiting COMPARISON: None. Findings: Two view(s)/radiograph(s) Location: abdomen Nonobstructive bowel gas pattern. No suspicious calcification. No acute osseous abnormalities. Soft tissues are unremarkable. Large stool volume. Cholecystectomy. No free air. Osteopenia. IMPRESSION: Nonobstructive bowel gas pattern. Electronically signed by: Shemar Sullivan MD 12/09/2019 12:31 PM CDT
--- NOTE | 2019-12-09 12:33 | RAD ---
Study: Single Frontal Radiograph of the Chest. Indication:nausea, vomiting Comparison: November 23, 2019 Impression: Mild cardiomegaly. Persistent right basilar consolidation with progressive moderate right pleural effusion. Mild left basilar consolidation, improved compared to the prior. No pneumothorax. Electronically signed by: Mario Mondragon MD 12/09/2019 12:31 PM CDT
--- NOTE | 2019-12-09 13:25 | CT ---
EXAM DESCRIPTION: Abdomen/Pelvis w/Contrast CLINICAL HISTORY: nausea, bilious emesis, no BM x2 weeks COMPARISON: August 27, 2018 TECHNIQUE: Postcontrast CT images of the abdomen and pelvis are obtained using standard imaging protocol. This exam was performed according to our departmental dose-optimization program, which includes automated exposure control, adjustment of the mA and/or kV according to patient size and/or use of iterative reconstruction technique . FINDINGS: Visualized lower chest shows loculated fluid along the lateral right chest wall measuring 3.2 cm maximum thickness with mild pleural thickening. Interstitial thickening in the right middle lobe and right lower lobe is seen. Interstitial nodular changes are also seen in the right lung base with pulmonary nodule in the lingula of the left upper lobe measuring 11 mm. Several less than 5 mm pulmonary nodules in the left lower lobe are seen. Multiple fluid attenuation hepatic cysts are seen throughout the left and right lobes of the liver with largest cyst at the medial segment of the left middle lobe to right lobe measuring maximum 8.6 cm. The largest cyst in the dome of the right lobe liver on previous exam measuring 11.3 cm now measures 7.4 cm. Spleen is presumed surgically absent. Calcified structure inferior to the right lobe of the liver measuring 3.2 cm is unchanged. Kidneys are not identified. Surgical clips from cholecystectomy. Pancreas is not well identified. Fluid attenuation cyst in the region of the midpole pancreas measures 3.2 cm compared to 2.2 cm previously. Mild dilatation of the main pancreatic duct in the head of the pancreas is seen. Mostly cystic-appearing mass in the expected location of the body to tail the pancreas extending to the expected location of the left kidney is increased in size measuring 6.9 x 4.2 cm compared to 5.0 x 2.7 cm on previous exam. More prominent cyst superior to this mass abutting the posterior medial abdominal wall at the level of the 12th rib now measures 3.8 x 2.7 cm compared to 3.8 x 2.2 cm previously. Multiple calcifications are seen associated with these cystic and partly enhancing lesions. Dense calcifications of the right main renal artery is seen. Small ascites is seen around the liver and in the left upper quadrant region. Moderate vascular calcifications are identified. Transplant kidney in the right iliac fossa is seen without hydronephrosis. Several, less than 5 fluid attenuation cortical cysts are seen measuring maximum 11 mm. Small ascites in the lower pelvis. Urinary bladder is poorly distended but unremarkable. Uterus is not identified and may be surgically absent or atrophic. The ovaries are not identified. The appendix contains a focal calcification measuring 6 mm without adjacent bowel wall thickening or inflammatory changes. Osseous structures are diffusely osteopenic. Sclerotic lesion involving the posterior aspect of the L1 vertebral body is new from previous. Sclerotic lesion involving the lateral mid left sacrum now measures 16 mm not seen previously. Question less than 1 cm sclerotic lesion involving the inferior right acetabulum is new from previous. Sclerotic lesion involving the inferior left pubic symphysis. Question enhancing lymph nodes in the paraesophageal region measuring up to 1 cm. The stomach is partly distended. Soft tissue attenuation nodules in the omentum of the left upper quadrant appears new from previous. No small bowel obstruction. Moderate scattered diverticuli of the colon are seen without associated inflammatory changes or fluid collections. Increased volume of formed stool throughout the colon is seen. Fat-containing umbilical hernia. IMPRESSION: The cystic mass in the left upper mid abdomen seen on previous exam has increased in size with enhancing components worrisome for primary pancreatic neoplastic process. Multiple cysts of the liver are seen consistent with polycystic kidney and liver disease. By history the patient has had bilateral nephrectomies. Transplant kidney in the right iliac fossa is seen. Interval development of ascites in the abdomen could be malignant ascites. Several with enteric and omental nodules are seen with omental caking in the left upper quadrant concerning for peritoneal carcinomatosis. The cystic mass in the neck to body of the pancreas also appears increased in size compared to previous. Loculated right lower chest pleural effusion is seen. Several bilateral pulmonary nodules and interstitial nodular changes to lungs are concerning for metastatic disease. Several sclerotic lesions in the lumbar spine and pelvis are new from previous worrisome for osteoblastic metastases. Moderate colon diverticulosis without CT evidence of diverticulitis. Moderate colon constipation or obstipation from cecum to the mid descending colon. Other findings as described above. Findings on this exam were called to Dr. Adalberto Boyce at 12/09/2019 1:23 PM CDT by Marito Dc MD. Electronically signed by: Juancho Dc MD 12/09/2019 1:23 PM CDT
[2019-12-09] MEDS ORDERED: PIPERACILLIN/TAZOBACTAM 3.375 GM in SODIUM CHLORIDE 0.9% 100ML 100 ML IVPB ONE (14:31)
[2019-12-09] MEDS ORDERED: levETIRAcetam 250 MG TAB PO ONE (19:19)
[2019-12-10] MEDS ORDERED: PIPERACILLIN/TAZOBACTAM 3.375 GM in SODIUM CHLORIDE 0.9% 100ML 100 ML IVPB ONE (01:19)
[2019-12-10] MEDS ORDERED: predniSONE 5 MG TAB PO ONE (10:46)
[2019-12-10] MEDS ORDERED: predniSONE 10 MG TAB ONE (10:51)
[2019-12-10] MEDS ORDERED: KCL 20 MEQ/NS 1,000 ML IVS PRN (11:59)
[2019-12-10] MEDS ORDERED: ONDANSETRON INJ 4 MG/2 ML VIAL IV ONE (12:00)
[2019-12-10] MEDS ORDERED: KCL 20MEQ/D5 1/2NS 1,000 ML IVS PRN (13:52)
[2019-12-10] MEDS: PIPERACILLIN/TAZOBACTAM 3.375 GM in SODIUM CHLORIDE 0.9% 100ML 100 ML IVPB SCH ×2 (14:14→21:39)
[2019-12-10] MEDS ORDERED: METOCLOPRAMIDE HCL INJ 10 MG/2 ML VIAL IV ONE (17:15)
[2019-12-10] MEDS ORDERED: levETIRAcetam SUSPENSION 100 MG/ML BTTL PO ONE ×2 (17:41→19:00)
[2019-12-10] MEDS ORDERED: METOPROLOL TARTRATE 50 MG TAB PO ONE ×2 (17:41→19:00)
[2019-12-10] MEDS ORDERED: amLODIPine BESYLATE 5 MG TAB PO ONE ×2 (17:41→19:00)
[2019-12-10] MEDS ORDERED: SULFA/TRIMETH 800/160 (DS) TAB 1 EA TAB PO ONE ×2 (17:41→19:00)
[2019-12-10] MEDS ORDERED: lamoTRIgine 100 MG TAB PO SCH ×2 (19:00→21:00)
[2019-12-10] MEDS ORDERED: amLODIPine BESYLATE 5 MG TAB ONE (20:15)
[2019-12-10] MEDS ORDERED: levETIRAcetam 250 MG TAB ONE (20:16)
[2019-12-10] MEDS ORDERED: DOXAZOSIN MESYLATE 2 MG TAB PO SCH (21:00)
[2019-12-10] MEDS ORDERED: QUEtiapine FUMARATE 100 MG TAB PO ONE (21:00)
[2019-12-10] MEDS ORDERED: URSODIOL 300 MG CAP PO SCH ×2 (21:00)
[2019-12-10 21:09] VITALS: BP 128/63; TEMP 98; O2SAT 98
--- NOTE | 2019-12-11 13:38 | CONS ---
DATE OF CONSULTATION: 12/09/19 REASON FOR CONSULTATION: Abdominal pain, constipation, nausea, vomiting, possible malignancy and cyst on liver and pancreas. HISTORY OF PRESENT ILLNESS: The patient comes in with nausea and vomiting last night, dark brown, nonbloody, multiple times. She has a known history of similar problems with a known gastroparesis, diagnosed possible esophageal stricture as well as chronic constipation. She has known diagnosis of multiple cysts on the liver and pancreas with apparent workup. This is now an acute exacerbation. She has not been able to eat well for quite a while and has lost some weight. She has been worked up at [facility] and is here for evaluation of these acute changes. She was admitted two to three weeks ago in [facility] for the gastroparesis. PAST MEDICAL HISTORY: 1. High blood pressure. 2. Diabetes. 3. Post bilateral nephrectomy and kidney transplant in 2004 on the right side. 4. History of seizures. 5. Depression. 6. Anxiety. 7. Chronic back pain. PAST SURGICAL HISTORY: 1. Nephrectomies. 2. Kidney transplant. MEDICATIONS: For the above, she was on narcotics. She is now on a different pain medicine, buprenorphine and naloxone. She is on multiple medications for the above. ALLERGIES: REGLAN. SOCIAL HISTORY: The patient denies any illicit habits. REVIEW OF SYSTEMS: As above and: CONSTITUTIONAL: No fevers, no chills. HEENT: No headache, visual changes, sore throat. RESPIRATORY: No cough or wheeze. CARDIOVASCULAR: No chest pain or palpitations. GASTROINTESTINAL: As above, but she also has been constipated and not able to have regular bowel movements for quite some time. She only takes fiber for this. No history of black or bloody stools. PHYSICAL EXAMINATION: VITAL SIGNS: Temperature 98, heart rate 100, blood pressure 130/80. GENERAL: The patient is conscious, alert and well-oriented, in no distress. She is a thin-appearing woman. Her is with her and they are both appropriate. HEENT: Normocephalic. Sclerae anicteric. Oral mucosa is moist. NECK: Supple. No adenopathy, jugular venous distention or thyromegaly seen. CHEST: Clear bilaterally. HEART: Regular rate and rhythm. ABDOMEN: Soft, no significant distention, no rebound, no guarding. No CVA tenderness. EXTREMITIES: No cyanosis, clubbing or edema. LABORATORY: White blood cell count 13, hematocrit 30, platelet count 445. CMP shows sodium 130, potassium 3.9, creatinine 0.9, glucose 111. Liver function tests are normal. Lipase normal. Urinalysis shows no evidence of acute infection. RADIOLOGY: Abdominal film was essentially normal. Chest x-ray shows right basal consolidation progressive effusion. CT abdomen and pelvis was performed which I also reviewed with the emergency physician. The patient has a full stomach consistent with either partial outlet obstruction from the large cyst on the liver or gastroparesis. There are multiple cystic masses, one in the left upper mid abdomen seen on previous exams, increased in size with enhancing components. This is worrisome for pancreatic neoplasm per the radiologist. Polycystic liver disease. There is some mild to moderate ascites in the abdomen. Several omental nodules are seen consistent with omental caking. Cystic mass in the neck and body of the pancreas that have increased. Loculated right pleural effusion. Several bilateral pulmonary nodules concerning for possible metastasis. Also, sclerotic lesions in the spine and pelvis, worrisome for metastasis. IMPRESSION: The patient with multiple chronic medical problems including kidney transplant, polycystic liver and cyst disease and cystic pancreas, possible neoplasm, possible metastatic disease, nausea and vomiting, gastric outlet obstruction versus gastroparesis and a loculated effusion/pneumonia in the right lung and multiple possible lung metastases. RECOMMENDATION: Given her multiple problems and the complex nature of evaluation and potential management of her current problems, it recommended the patient be transferred to [facility] where they can workup the possible malignancies, make a diagnosis and then deal with her gastric outlet obstruction either with surgical bypass or TPN, etc., and evaluate the possible omental caking. The emergency physician has already begun to arrange that. She is in no acute distress. I agree with the plan per Emergency Room physician. #[id number] MTDD
== END 2019-12-10 21:42 | disposition short-term general hospital (02) ==
LOC: ER 11:17
DX: R11.2 Nausea with vomiting, unspecified (principal); K86.9 Disease of pancreas, unspecified; K31.1 Adult hypertrophic pyloric stenosis; J90 Pleural effusion, not elsewhere classified; E11.9 Type 2 diabetes mellitus without complications; I10 Essential (primary) hypertension; Z94.0 Kidney transplant status; G40.909 Epilepsy, unspecified, not intractable, without status epilepticus; F32.9 Major depressive disorder, single episode, unspecified; F41.9 Anxiety disorder, unspecified; G89.29 Other chronic pain; Z88.8 Allergy status to other drugs, medicaments and biological substances; Z79.4 Long term (current) use of insulin; Z86.73 Personal history of transient ischemic attack (TIA), and cerebral infarction without residual deficits; Z85.828 Personal history of other malignant neoplasm of skin; Z85.51 Personal history of malignant neoplasm of bladder; Z20.828 Contact with and (suspected) exposure to other viral communicable diseases
CPT/HCPCS: 36415; 71045; 74018; 74177; 80048; 80076; 81001; 82150; 82550; 83605; 83690; 84484; 85025; 87040; 87635; 93005; A4216; J2405; J2543; J2765; J3480; J7030; J7050; J7512